=== PATIENT | male | born 1990 | race Caucasian/White ===

== ENCOUNTER 2019-01-28 16:05 | Observation (INO) | payer BC ==
--- OUTSIDE RECORDS SUMMARY | 2019-01-28 17:11 | XMS REPORT ---
:1990 [facility] Organization [facility] Address [address] [place] [address] Dr. Webber [address] [place] [id number] Care Team Providers Name Role Phone Unavailable Unavailable Unavailable Problems This patient has no known problems. Allergies, Adverse Reactions, Alerts This patient has no known allergies or adverse reactions. Medications This patient has no known medications.
--- OUTSIDE RECORDS SUMMARY | 2019-01-28 17:11 | XMS REPORT | Clinical Summary ---
:1990 Author Organization [facility] Address [address] [place] [address] Care Team Providers Name Role Phone Asked, No Pcp Primary Care Provider Unavailable Allergies No Known Allergies Medications Medication Sig Dispensed Refills Start Date End Date Status INSULIN LISPRO Inject under the 0 Active (INSULIN PUMP) 100 skin continuously. 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 Last Filed Vital Signs Not on file Plan of Treatment Health Maintenance Due Date Last Done Comments DIABETIC RETINAL EYE EXAM 1990 DIABETIC FOOT EXAM 01/14/1998 URINE MICROALBUMIN 01/14/1998 INFLUENZA VACCINE 03/17/2019 Results Not on fileafter 01/27/2018 Advance Directives Patient has advance care planning documents on file. For more information, please contact:Mir Chacko[address] [place] [address]
[2019-01-28] MEDS ORDERED: NA CHLORIDE 0.9% 2,000 ML ONE (17:17)
[2019-01-28 17:18] LABS: Absolute Lymphocytes (CBC) 2.6 K/uL (0.7-4.9); Basophils % 0.5 % (0-1.3); Eosinophils % 2.5 % (0-4.4); Hematocrit 42.1 % (39.6-49.0); Lymphocytes % 28.7 % (15.3-44.8); MPV 8.9 fL (7.6-11.3); Monocytes % 5.9 % (3.3-12.3); RBC Red Blood Cell Count 4.55 M/uL (4.33-5.43)
[2019-01-28 17:19] LABS: Protime INR 0.98
--- NOTE | 2019-01-28 17:23 | ER ---
Nurse's Notes [facility] Name: Nick Toure Age: 29 yrs Sex: Male : 1990 Arrival Date: 01/28/2019 Time: 16:07 Bed 18 Private MD: Diagnosis: Abscess of anal and rectal regions;Type 1 diabetes mellitus Presentation: 01/28 16:08 Presenting complaint: Patient states: "I have an abscess on my scrotum and saw Dr. lupillo Lucero today around 2:30pm". Transition of care: patient was not received from another setting of care. Onset of symptoms was 2018. Risk Assessment: Do you want to hurt yourself or someone else? Patient reports no desire to harm self or others. Initial Sepsis Screen: Does the patient meet any 2 criteria? No. Patient's initial sepsis screen is negative. Does the patient have a suspected source of infection? No. Patient's initial sepsis screen is negative. Care prior to arrival: None. 16:08 Acuity: GRAZYNA 3 aa5 16:08 Method Of Arrival: Ambulatory aa5 Historical: - Allergies: 16:08 No Known Allergies; aa5 - Home Meds: 18:52 lisinopril 5 mg Oral tab 1 tab once daily [Active]; Novolog 100 unit/mL Sub-Q soln em [Active]; - PMHx: 16:08 Diabetes - IDDM; aa5 - PSHx: 16:08 None; aa5 - Immunization history:: Adult Immunizations up to date. - Social history:: Smoking status: Patient/guardian denies using tobacco. - Ebola Screening: : Patient negative for fever greater than or equal to 101.5 degrees Fahrenheit, and additional compatible Ebola Virus Disease symptoms Patient denies exposure to infectious person Patient denies travel to an Ebola-affected area in the 21 days before illness onset No symptoms or risks identified at this time. Screenin:40 Abuse screen: Denies threats or abuse. Nutritional screening: No deficits noted. em Tuberculosis screening: No symptoms or risk factors identified. Fall Risk None identified. Assessment: 16:40 General: Appears in no apparent distress. comfortable, Behavior is calm, cooperative, em Denies fever. Pain: Complains of pain in perineum Pain currently is 5 out of 10 on a pain scale. Neuro: Level of Consciousness is awake, alert, obeys commands, Oriented to person, place, time, situation, Appropriate for age. Cardiovascular: Capillary refill < 3 seconds Patient's skin is warm and dry. Respiratory: Airway is patent Respiratory effort is even, unlabored, Respiratory pattern is regular, symmetrical. GI: Abdomen is flat, Patient currently denies nausea, vomiting. Derm: Skin is intact, is healthy with good turgor, Skin is pink, warm \\T\\ dry. Musculoskeletal: Capillary refill < 3 seconds, Range of motion: intact in all extremities. 17:00 Reassessment: I agree with the assessment made by Dagoberto JOEL. sg 17:44 Reassessment: Patient appears in no apparent distress at this time. Patient and/or em family updated on plan of care and expected duration. Pain level reassessed. Patient is alert, oriented x 3, equal unlabored respirations, skin warm/dry/pink. pending room assignment. 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 19:55 Reassessment: Patient appears in no apparent distress at this time. Patient and/or ed1 family updated on plan of care and expected duration. Pain level reassessed. Patient is alert, oriented x 3, equal unlabored respirations, skin warm/dry/pink. Vital Signs: 16:13 BP 131 / 72; Pulse 95; Resp 16 S; Temp 98.4(TE); Pulse Ox 100% on R/A; Weight 60.78 kg aa5 (R); Height 5 ft. 7 in. (170.18 cm) (R); Pain 5/10; 17:00 BP 135 / 81; Pulse 94; Resp 18; Pulse Ox 99% on R/A; em 17:40 BP 124 / 83; Pulse 85; Resp 17; Temp 99.0(O); Pulse Ox 100% on R/A; mh5 18:25 BP 136 / 83; Pulse 91; Resp 18; Pulse Ox 100% on R/A; Pain 0/10; em 19:55 BP 149 / 84; Pulse 87; Resp 17; Temp 97.9(O); Pulse Ox 100% on R/A; Pain 3/10; ed1 16:13 Body Mass Index 20.99 (60.78 kg, 170.18 cm) aa5 ED Course: 16:07 Patient arrived in ED. aa5 16:13 Triage completed. aa5 16:13 Arm band placed on. aa5 16:15 Nemo Gutiérrez FNP-C [facility]. snw 16:15 Al Mccoy MD is Attending Physician. snw 16:18 Dagoberto Perkins LVN is Primary Nurse. em 16:40 Patient has correct armband on for positive identification. Bed in low position. Call em light in reach. Adult w/ patient. Pulse ox on. NIBP on. 16:55 Inserted saline lock: 22 gauge in right antecubital area, using aseptic technique. ed1 Blood collected. 16:55 Initial lab(s) drawn, by me, sent to lab. First set of blood cultures drawn by me. em 17:02 Chest Single View XRAY In Process Unspecified. EDMS 17:[address] MD is Hospitalizing Provider. snw 17:26 EKG done, by motorsports technician. reviewed by Nemo MCKENZIE. sm3 19:10 Primary Nurse role handed off by Dagoberto Perkins LVN ed1 19:10 Heather Foley RN is Primary Nurse. ed1 19:55 No provider procedures requiring assistance completed. Patient admitted, IV remains in ed1 place. intact, No redness/swelling at site. Administered Medications: 17:09 Drug: NS 0.9% (30 ml/kg) 30 ml/kg Route: IV; Rate: bolus; Site: right antecubital; em 20:32 Follow up: IV Status: Infusion continued upon admission ed1 Outcome: 17:22 Decision to Hospitalize by Provider. snw 20:31 Admitted to Med/surg accompanied by tech, family with patient, via wheelchair, room ed1 218, with chart, Report called to JOHNY Addison 20:31 Condition: stable 20:31 Discharge instructions given to patient, family, Instructed on the need for admit, Demonstrated understanding of instructions. 20:31 Patient left the ED. ed1 Signatures: Dispatcher [employer] EDMS Kapil Cazares RN RN Nemo Gutiérrez FNP-C INTERNAL AFFAIRS COMMANDER-CsnDagoberto Grijalva LVN BUSINESS PROFESSOR em Jackelyn Alvarado RN RN [facility] Heather Foley RN RN ed1 Lucinda Lucero 5 Shawanda Dumont 3 Corrections: (The following items were deleted from the chart) 19:56 16:55 Inserted saline lock: 20 gauge in right antecubital area, using aseptic ed1 technique. Blood collected. em
--- NOTE | 2019-01-28 17:24 | EDPHYS ---
Physician Documentation [facility] Name: Nick Toure Age: 29 yrs Sex: Male : 1990 Arrival Date: 01/28/2019 Time: 16:07 Bed 18 Private MD: ED Physician Al Mccoy HPI: 01/28 16:58 This 29 yrs old Male presents to ER via Ambulatory with complaints of jong snw anal abscess. 16:58 The patient presents with an abscess of the jong anal. Description: localized, snw fluctuant. Onset: The symptoms/episode began/occurred 3 day(s) ago. Possible cause(s): insect sting. Associated signs and symptoms: The patient has no apparent associated signs or symptoms. Severity of symptoms: At their worst the symptoms were moderate. The patient has not experienced similar symptoms in the past. The patient has been recently seen by a physician: Dr. Lucero. Historical: - Allergies: 16:08 No Known Allergies; aa5 - Home Meds: 18:52 lisinopril 5 mg Oral tab 1 tab once daily [Active]; Novolog 100 unit/mL Sub-Q soln em [Active]; - PMHx: 16:08 Diabetes - IDDM; aa5 - PSHx: 16:08 None; aa5 - Immunization history:: Adult Immunizations up to date. - Social history:: Smoking status: Patient/guardian denies using tobacco. - Ebola Screening: : Patient negative for fever greater than or equal to 101.5 degrees Fahrenheit, and additional compatible Ebola Virus Disease symptoms Patient denies exposure to infectious person Patient denies travel to an Ebola-affected area in the 21 days before illness onset No symptoms or risks identified at this time. ROS: 16:45 Constitutional: Negative for fever, chills, and weight loss, Eyes: Negative for injury, snw pain, redness, and discharge, ENT: Negative for injury, pain, and discharge, Neck: Negative for injury, pain, and swelling, Cardiovascular: Negative for chest pain, palpitations, and edema, Respiratory: Negative for shortness of breath, cough, wheezing, and pleuritic chest pain, Abdomen/GI: Negative for abdominal pain, nausea, vomiting, diarrhea, and constipation, +jong anal abscess Back: Negative for injury and pain. Exam: 16:37 Constitutional: This is a well developed, well nourished patient who is awake, alert, snw and in no acute distress. Head/Face: Normocephalic, atraumatic. Eyes: Pupils equal round and reactive to light, extra-ocular motions intact. Lids and lashes normal. Conjunctiva and sclera are non-icteric and not injected. Cornea within normal limits. Periorbital areas with no swelling, redness, or edema. ENT: Nares patent. No nasal discharge, no septal abnormalities noted. Tympanic membranes are normal and external auditory canals are clear. Oropharynx with no redness, swelling, or masses, exudates, or evidence of obstruction, uvula midline. Mucous membranes moist. Neck: Trachea midline, no thyromegaly or masses palpated, and no cervical lymphadenopathy. Supple, full range of motion without nuchal rigidity, or vertebral point tenderness. No Meningismus. Chest/axilla: Normal chest wall appearance and motion. Nontender with no deformity. No lesions are appreciated. Cardiovascular: Regular rate and rhythm with a normal S1 and S2. No gallops, murmurs, or rubs. Normal PMI, no JVD. No pulse deficits. Respiratory: Lungs have equal breath sounds bilaterally, clear to auscultation and percussion. No rales, rhonchi or wheezes noted. No increased work of breathing, no retractions or nasal flaring. Abdomen/GI: Soft, non-tender, with normal bowel sounds. No distension or tympany. No guarding or rebound. No evidence of tenderness throughout. + jong-anal abscess with pointing, evaluated today per Dr. Lucero who sent pt for admission. Pt stopped and picked up his antibiotics and took them just prior to arrival. Back: No spinal tenderness. No costovertebral tenderness. Full range of motion. Skin: Warm, dry with normal turgor. Normal color with no rashes, no lesions, and no evidence of cellulitis. MS/ Extremity: Pulses equal, no cyanosis. Neurovascular intact. Full, normal range of motion. Neuro: Awake and alert, GCS 15, oriented to person, place, time, and situation. Cranial nerves II-XII grossly intact. Motor strength 5/5 in all extremities. Sensory grossly intact. Cerebellar exam normal. Normal gait. 17:22 ECG was reviewed by the Attending Physician. snw Vital Signs: 16:13 BP 131 / 72; Pulse 95; Resp 16 S; Temp 98.4(TE); Pulse Ox 100% on R/A; Weight 60.78 kg aa5 (R); Height 5 ft. 7 in. (170.18 cm) (R); Pain 5/10; 17:00 BP 135 / 81; Pulse 94; Resp 18; Pulse Ox 99% on R/A; em 17:40 BP 124 / 83; Pulse 85; Resp 17; Temp 99.0(O); Pulse Ox 100% on R/A; mh5 18:25 BP 136 / 83; Pulse 91; Resp 18; Pulse Ox 100% on R/A; Pain 0/10; em 19:55 BP 149 / 84; Pulse 87; Resp 17; Temp 97.9(O); Pulse Ox 100% on R/A; Pain 3/10; ed1 16:13 Body Mass Index 20.99 (60.78 kg, 170.18 cm) aa5 MDM: 16:21 Patient medically screened. snw 17:22 Data reviewed: vital signs, nurses notes. Data interpreted: Pulse oximetry: on room air snw is 100 %. Interpretation: normal. Counseling: I had a detailed discussion with the patient and/or guardian regarding: the historical points, exam findings, and any diagnostic results supporting the discharge/admit diagnosis, the need for further work-up and treatment in the hospital. Physician consultation: Angie Lane MD was called at 17:15, was contacted at 17:15, regarding admission, to the medical/surgical unit. Dr. Lucero spoke with Dr. Mccoy re: pt coming to ED for admit to Hospitalist. 01/28 16:21 Order name: T\T\S snw 01/28 16:21 Order name: Basic Metabolic Panel snw 01/28 16:21 Order name: Blood Culture Adult (2) snw 01/28 16:21 Order name: CBC with Diff snw 01/28 16:21 Order name: CPK; Complete Time: 17:35 snw 01/28 16:21 Order name: Lactate; Complete Time: 17:35 snw 01/28 16:21 Order name: LFT's; Complete Time: 17:35 snw 01/28 16:21 Order name: Lipase; Complete Time: 17:35 snw 01/28 16:21 Order name: Procalcitonin; Complete Time: 18:17 snw 01/28 16:21 Order name: Protime (+inr); Complete Time: 17:26 snw 01/28 16:24 Order name: Type and Screen; Complete Time: 18:17 EDMS 01/28 16:24 Order name: Basic Metabolic Panel; Complete Time: 17:35 EDMS 01/28 16:24 Order name: Blood Culture EDMS 01/28 16:24 Order name: CBC with Automated Diff; Complete Time: 17:22 EDMS 01/28 16:21 Order name: Chest Single View XRAY; Complete Time: 18:45 snw 01/28 16:21 Order name: Accucheck; Complete Time: 17:11 snw 01/28 16:21 Order name: Cardiac monitoring; Complete Time: 17:11 snw 01/28 16:21 Order name: EKG - Nurse/Tech; Complete Time: 17:11 snw 01/28 16:21 Order name: IV Saline Lock - Large Bore; Complete Time: 17:11 snw 01/28 16:21 Order name: Labs collected and sent; Complete Time: 17:12 snw 01/28 16:21 Order name: O2 Per Protocol; Complete Time: 17:12 snw 01/28 17:28 Order name: EKG Electrocardiogram; Complete Time: 17:29 EDMS 01/28 17:40 Order name: CT Pelvis w cont snw 01/28 17:42 Order name: CONS Pharmacy Consult EDAL 01/28 17:42 Order name: CONS Pharmacy Consult EDAL 01/28 17:42 Order name: CONS Physician Consult EDAL 01/28 17:42 Order name: Consistent Carb (ADA) [address] EDAL 01/28 17:43 Order name: Wound Culture EDAL 01/28 18:43 Order name: CT; Complete Time: 18:45 EDMS 01/28 16:21 Order name: O2 Sat Monitoring; Complete Time: 17:11 snw Administered Medications: 17:09 Drug: NS 0.9% (30 ml/kg) 30 ml/kg Route: IV; Rate: bolus; Site: right antecubital; em 20:32 Follow up: IV Status: Infusion continued upon admission ed1 Disposition: 01/28/19 17:22 Hospitalization ordered by Angie Lane for Inpatient Admission. Preliminary diagnosis are Abscess of anal and rectal regions, Type 1 diabetes mellitus. - Bed requested for Telemetry/MedSurg (Inpatient). - Status is Inpatient Admission. ed1 - Condition is Stable. - Problem is new. - Symptoms are unchanged. UTI on Admission? No Addendum: 01/31/2019 11:54 Co-signature as Attending Physician, Al Mccoy MD I agree with the assessment and k dr plan of care. Signatures: Dispatcher [employer] EDAL Al Mccoy MD MD [facility] Nemo Gutiérrez, FUR CUTTER-C FUR CUTTER-Csnw Dagoberto Perkins, SOUNDSCRIBER MECHANIC SOUNDSCRIBER MECHANIC em Lucinda Sheppard ms Jackelyn Alvarado, RN RN aa5 Heather Foley RN RN ed1 Corrections: (The following items were deleted from the chart) 01/28 18:10 17:22 Hospitalization Ordered by Angie Lane MD for Inpatient Admission. Preliminary ms diagnosis is Abscess of anal and rectal regions; Type 1 diabetes mellitus. Bed requested for Telemetry/MedSurg (Inpatient). Status is Inpatient Admission. Condition is Stable. Problem is new. Symptoms are unchanged. UTI on Admission? No. snw 20:31 18:10 01/28/2019 17:22 Hospitalization Ordered by Angie Lane MD for Inpatient ed1 Admission. Preliminary diagnosis is Abscess of anal and rectal regions; Type 1 diabetes mellitus. Bed requested for Telemetry/MedSurg (Inpatient). Status is Inpatient Admission. Condition is Stable. Problem is new. Symptoms are unchanged. UTI on Admission? No. ms
[2019-01-28 17:32] LABS: Albumin 3.9 g/dL (3.4-5.0); Bilirubin Direct 0.2 mg/dL (0-0.2); Bilirubin Total 0.6 mg/dL (0.2-1.0); Potassium 3.8 mmol/L (3.5-5.1); Protein, Total 7.2 g/dL (6.4-8.2)
[2019-01-28] MEDS ORDERED: ACETAMINOPHEN 500 MG TAB PO PRN (17:34)
[2019-01-28] MEDS ORDERED: ONDANSETRON 4 MG/2 ML VIAL IV PRN (17:34)
[2019-01-28] MEDS: VANCOMYCIN/NS 1 gm 1 GM/250 ML BAG IVPB SCH (18:00)
[2019-01-28] MEDS ORDERED: HYDROCODONE/APAP 7.5/325 MG TAB PO PRN (18:14)
--- NOTE | 2019-01-28 18:40 | RAD REPORT ---
EXAM DESCRIPTION: CT - Pelvis W/Cont - 01/28/2019 6:07 pm CLINICAL HISTORY: Perirenal abscess and pain COMPARISON: None. TECHNIQUE: Computed axial tomography of the pelvis was obtained. 50 cc Isovue-300 administered intra venously. Oral contrast not requested limiting evaluation of bowel All CT scans are performed using dose optimization technique as appropriate and may include automated exposure control or mA/KV adjustment according to patient size. FINDINGS: The visualized bowel caliber and wall thickness is normal Prostate gland is mildly enlarged. No ascites 6 millimeter low-density area adjacent to the right aspect of the anus. . Ischiorectal fat is clear. Small left and small to moderate right hydrocele IMPRESSION: 6 millimeter low-density area adjacent to the anus may represent a small abscess.
--- NOTE | 2019-01-28 18:42 | RAD REPORT ---
EXAM DESCRIPTION: Blue Single View01/28/2019 5:00 pm CLINICAL HISTORY: Preop for scrotal surgery COMPARISON: 2013 FINDINGS: The lungs appear clear of acute infiltrate. The heart is normal size IMPRESSION: No acute abnormalities displayed
[2019-01-28] MEDS ORDERED: CEFEPIME 2 GM in NA CHLORIDE 0.9% 100 ML IV SCH (21:00)
[2019-01-28] MEDS: CEFEPIME/SWI 2gm 2 GM/20 ML SYR IVP SCH (22:14)
[2019-01-28] MEDS: NA CHLORIDE 0.9% 1,000 ML IV SCH (22:15)
[2019-01-28 23:37] VITALS: BMI 20.9
[2019-01-29 02:52] LABS: Urine Appearance CLEAR; Urine Bilirubin NEGATIVE (NEG); Urine Blood NEGATIVE (NEG); Urine Color YELLOW; Urine Glucose 1+ (NEG); Urine Protein NEGATIVE (NEG); Urine Specific Gravity >=1.030 (1.005-1.030); Urine Urobilinogen 0.2 mg/dL (0.2-1.0); Urine pH 6.5 (5.0-7.0)
[2019-01-29 02:56] LABS: Urine Microscopic Reflex NO UMIC
[2019-01-29] MEDS: NA CHLORIDE 0.9% 1,000 ML IV SCH (04:05)
[2019-01-29 04:29] LABS: Absolute Lymphocytes (CBC) 3.1 K/uL (0.7-4.9); Basophils % 0.5 % (0-1.3); Eosinophils % 4.9 % (0-4.4); Lymphocytes % 38.2 % (15.3-44.8); MPV 8.9 fL (7.6-11.3); Monocytes % 7.8 % (3.3-12.3); RBC Red Blood Cell Count 4.21 M/uL (4.33-5.43)
--- NOTE | 2019-01-29 04:32 | HP ---
Date of Admission: 01/28/2019 Chief Complaint: Perirectal abscess. History Of Present Illness: The patient is a 29-year-old type 1 diabetic, with insulin pump, who was sent from Dr. Sevilla's office to Dr. Lucero's office because of a perirectal abscess. Dr. Cassidy reardon recommended further evaluation in the ER and possible incision and drainage. The patient has had t his abscess for the past week or so. States he has been working in a hot environment at his [employer] and has been very active. Therefore, with the increased sweating and the heat outside, t he patient has developed an abscess, as he is at risk due to being diabetic. The patient denies any fevers or chills. His symptoms are constant, moderate, progressively worsening. Denies any trauma t o the area. No alleviating factor. Pressure is worsening the pain. In the ER, his workup showed no rmal white cell count. He was not septic. Lactate was negative. Pelvis CT scan is pending. The lalitha mendieta was given Cipro and Flagyl at the surgeon's office. When seen in the ER, he was awake, alert, oriented x3, in some mild distress. Past Medical History: Type 1 diabetes mellitus, diabetic retinopathy, high blood pressure. Past Surgical History: None. Allergies: NO KNOWN DRUG ALLERGIES. Social History: The patient does report some occasional alcohol use. No tobacco use. Family History: Coronary artery disease and prostate cancer, run in the family. Review of Systems: Ten-point system reviewed, negative except as per HPI. Physical Examination: Vital Signs: Blood pressure 131/72, respirations 16, temperature is 98.4, heart rate 95, O2 100% on room air. General: Awake, alert, oriented x3, in some mild distress. HEENT: Normocephalic, atraumatic. PERRLA. EOMI. Moist mucous membranes. Oropharynx is clear. No rmal dentition. Conjunctivae anicteric. Neck: Supple. No JVD. Trachea midline. CV: S1 and S2. Regular rate and rhythm. Peripheral pulses present. Respiratory: Moving air well bilaterally. No wheezing or stridor. No use of accessory muscles. Gastrointestinal: Abdomen is soft, nontender, nondistended. Positive bowel sounds. No guarding or rigidity. Extremities: No clubbing, cyanosis, or edema. No calf tenderness. Neuro: Cranial nerves 2 pyurbar62 intact grossly. No focal neurological deficit. Speech is normal. Skin: The patient has multiple excoriations and ulcerations on his legs, noninfective. The patient does have perirectal abscess with closed comedone appearance. No fluctuance was appreciated. Minima l surrounding erythema. Psych: Mood is okay. Affect is full. Insight and judgment are good. Laboratory Data: Sodium 144, potassium 3.8, chloride 110, CO2 28, BUN 13, creatinine 1.01, glucose o f 118, lactate 1.6, calcium 8.8 procalcitonin less than 0.05. INR 0.98. WBC 9, H and H 14.8 and 42. 1, platelets 267, neutrophils 62% Imaging studies: Pending. Assessment: A 29-year-old male with: 1.Perirectal abscess, The patient has risk for MRSA and other infection due to uncontrolled diabetes mellitus type 1. We will start on broad spectrum IV antibiotics. We will obtain cultures. Dr. Gali cole with General Surgery has been consulted, he recommends incision and drainage. Pelvis CT scan is pending. 2.Diabetes mellitus type 1, not well controlled. We will check hemoglobin A1c. The patient current ly on an insulin pump, states his blood sugars were in the 200s. We will continue to monitor. December n eed to add long-acting insulin. 3.Diabetic retinopathy. 4.Essential hypertension. The patient takes lisinopril. Plan: 1.Admit the patient to Med/Surg. 2.Place on observation. 3.Anticipate surgery. 4.SCDs for DVT prophylaxis. 5.No chemical anticoagulation. /BENITO Voice ID: [id number]
[2019-01-29 04:34] LABS: BUN Blood Urea Nitrogen 15 mg/dL (7-18); Bicarbonate 29 mmol/L (21-32); Glucose Level 138 mg/dL (74-106); Potassium 3.9 mmol/L (3.5-5.1); Sodium Level 144 mmol/L (136-145)
[2019-01-29] MEDS: VANCOMYCIN/NS 1 gm 1 GM/250 ML BAG IVPB SCH (04:45)
[2019-01-29] MEDS: CEFEPIME/SWI 2gm 2 GM/20 ML SYR IVP SCH (07:55)
--- NOTE | 2019-01-29 08:08 | EKG ---
Test Date: 2019-01-28 Test Time: 17:22:00 Diet Technician Registered: DIMITRI MEASUREMENT RESULTS: Intervals: Rate: 94 IL: 164 QRSD: 86 QT: 328 QTc: 410 [place]: P: 69 IL: 164 QRS: 82 T: 28 INTERPRETIVE STATEMENTS: Normal sinus rhythm Normal ECG Compared to ECG 07/20/2006 09:57:30 Sinus tachycardia no longer present Electronically Signed On 01-29-19 08:07:52 CDT by Lisandro Morrell
[2019-01-29] MEDS: BUPIVACAINE 0.5% PF 10 ML VIAL ONE ×2 (09:20→09:56)
[2019-01-29] MEDS ORDERED: MIDAZOLAM HCL 2 MG/2 ML INJ ONE ×2 (09:54→10:15)
[2019-01-29] MEDS ORDERED: KETOROLAC 30 MG/ML INJ ONE (09:54)
[2019-01-29] MEDS ORDERED: PROPOFOL 200 MG/20 ML VIAL IV ONE (09:54)
[2019-01-29] MEDS ORDERED: FENTANYL CITR 100 MCG/2 ML ONE (09:54)
[2019-01-29] MEDS ORDERED: ONDANSETRON 4 MG/2 ML VIAL ONE (09:54)
[2019-01-29] MEDS ORDERED: LIDOCAINE 1% MPF 5 ML VIAL ONE (09:54)
[2019-01-29] MEDS ORDERED: D5 0.45 NS 1,000 ML IV SCH (10:00)
[2019-01-29] MEDS ORDERED: D50W 25 GM/50 ML SYRINGE IV ONE (10:10)
[2019-01-29 11:07] VITALS: TEMP 97.9; O2SAT 98
--- NOTE | 2019-01-29 13:53 | CON ---
Date of Consultation: 01/28/2019 History Of Present Illness: This is the case of a 29-year-old patient with history of diabetes, come to my office, he come from Dr. Sevilla's office with a perirectal abscess, needing immediate attentio n, he has to go home, came back, went to the ER and I was consulted. The patient was fully explained before the need for incision and drainage of perianal abscess. He sa ys it is getting worse in the last 2 days. He is trying to keep his sugar under control. He denies any trauma. He denies any constipation, any dysuria, hematuria, hematochezia, or melena. He says, b asically he is keeping his glucose under control. Past Medical History: Type 1 diabetes, diabetic retinopathy, high blood pressure. Past Surgical History: None. Allergies: NONE. Social History: He does not smoke. He drinks alcohol occasionally. Family History: Includes coronary artery disease. Review of Systems: Ten points otherwise unremarkable. Physical Examination: General: The patient is awake and alert. HEENT: Pupils are equal and reactive, anicteric. Neck: Supple. Chest: Clear. Abdomen: Soft and depressible. Extremities: Good capillary refill. Skin: The perianal and perineal area shows an abscess with cellulitis, tender, fluctuance present. No drainage at this time. This extend from the perianal into the perineal area. The scrotal seems n ot to be involved at this time with cellulitis. Rectal deferred. Laboratory Data: Blood work shows a WBC count of 9 with hemoglobin of 14.8. INR 0.9. Potassium 3.9 , glucose 138. Pelvic CT shows perianal abscess. Assessment: This is a 29-year-old patient with history of diabetes, come with 2 days history of swel ling, redness over the perineal and perianal area. Very tender to palpation. Fluctuance present con sistent with an abscess and cellulitis. Not only the abscess is important to drain in this patient, also cellulitis as this may escalate more complicated case. So I have advised him the importance of letting us to do the incision and drainage of the area. We are going to do EUA, anoscopy proctoscopy since we want to see if by any chance we can find the etiology of this one since it may be from just a simple infection to even fistulas or any other neoplasia. He understood the benefits, alternative s, and risks of that which include, but not limited to infection, bleeding, damage to adjacent struct ures, anesthetic complication, anal stricture, anal incontinence, NE, and even . He also unders tands this may not relieve the symptoms, he might need more than one surgical intervention. He under stands he will require packing and the importance of continuing his antibiotics. DANYA/BENITO Voice ID: [id number] Report ID: [id number]
[2019-01-29 14:04] VITALS: BP 147/84
--- NOTE | 2019-01-29 15:20 | DS ---
Date of Discharge: 01/29/2019 Knock Up Assembler: Dr. Lucero, General Surgery. Procedures: Incision and drainage of perirectal abscess. Discharge Diagnoses: 1.Perirectal abscess status post incision and drainage. 2.Diabetes mellitus type 1 on insulin pump. 3.Diabetic retinopathy. 4.Essential hypertension. Hospital Course: The patient is a 29-year-old male who was admitted to the hospital for perirectal a bscess. The patient was taken by Dr. Lucero for I and D. Did well postoperatively. The patient d id not appear to be septic, had normal white blood cell count. Lactate and procalcitonin were negati ve. The patient tolerated the procedure well. He was then cleared for discharge from surgical stand point. He will need continued wound care. He will need to follow up with Dr. Lucero and finish of f course of oral antibiotics. He will need to follow up with his culture results with Dr. Lucero. Condition: Stable. Activity: As tolerated. Medications: As per medication reconciliation list. Diet: Diabetic. Followup: Follow up with surgeon Dr. Lucero in 1 week for wound check. Return to ER for worsening condition. Follow up with ob gyn physician assistant at [facility] as scheduled. Physical Examination: General: Awake, alert, oriented x3. No acute distress. CV: S1, S2. No murmurs. Respiratory: Moving air well bilaterally. No wheezing or stridor. Gastrointestinal: Abdomen is soft, nontender, nondistended. Positive bowel sounds. Extremities: No clubbing, cyanosis, or edema. Neurologic: Nonfocal. Skin: Perirectal abscess status post I and D with bandage clean, dry, and intact. SA/MODL Voice ID: [id number] Report ID: [id number]
--- NOTE | 2019-01-29 16:27 | OP ---
Date of Procedure: 01/29/2019 Surgeon: Simone Lucero MD Preoperative Diagnoses: Perianal abscess, diabetes. Postoperative Diagnoses: Perianal abscess, diabetes. Procedures: Examination under anesthesia, anoscopy, rigid proctoscopy, incision and drainage of jong anal complex abscess. Abscess about 2.7 x 2 cm with loculations present. Indications: This is the case of a 29-year-old patient, who comes to us with a perianal abscess, sotero y tender area starting from the anus extending to perineum. Does not seem to be involving scrotum. He is diabetic. It happened fast in the last day and a half, so the patient was admitted to the hosp [facility]. Diabetes control called. I was called for incision and drainage of perianal abscess. The EUA , anoscopy, proctoscopy, incision and drainage of perianal abscess fully explained to the patient, wh ich include but are not limited to infection, bleeding, damage to adjacent structures, anesthesia com plication, anal stricture, anal incontinence, nonhealing wound, UT, and even . He also understa nds this may not relieve any symptoms. He might need more than one surgical intervention. He unders tands the importance of wound care and diabetes control. He signed a consent. Description Of Procedure: The patient was brought to the operating room, placed in supine position. Anesthesia was done without complication, placed in a right lateral position. After proper protecti on time-out was called. A rectal examination was done. Abscess was palpated. We then proceeded to do a rigid proctoscope all the way to about 12 cm, cannot past that area, as lot of stools present. I could not find at least any evidence of any mass or fistulas or any other thing obvious, although o nce again, because of the stool it was hard to see. I removed that and then placed an anoscope with a window on the side. Once again, on checking on his dentate line and a little bit more proximal, lo oking for any fistulas, we put a probe over the area of the opening of the abscess, but we could not get any entry site on the rectum or dentate line. So, at that moment, I removed the probe and then p roceed to do an I and D of the abscess. There were multiple loculations that extended in different a reas including the perineum. Does not seem to be going to the scrotum. The area was irrigated. A c ulture was obtained and then the area was packed with iodoform quarter of an inch. The patient alvaro ated the procedure well. The instruments were removed. The sponge count, instrument counts were cor rect. The patient was sent to recovery room in stable condition. He wants to go home, I was going t o let the primary doctor if it was okay with him to go home, with a condition that he packed the area daily with Nu Gauze one-quarter of an inch and take his medications and follow up in my office in 1 week. He may take a shower with dressings off. DANYA/BENITO Voice ID: [id number] Report ID: [id number]
[2019-01-29] MEDS ORDERED: SUBCUTANEOUS INSULIN PUMP MC SCH (20:30)
[2019-01-30] MEDS ORDERED: LISINOPRIL 5 MG TAB PO SCH (09:00)
== END 2019-01-29 11:41 | disposition home or self-care (01) ==
LOC: ER 16:05 → ERHOLD 17:35 → 2ND 20:18
PROVIDERS: ADMIT Family Medicine; ATTEND Family Medicine
PROC: 0D9P3ZX Drainage of Rectum, Percutaneous Approach, Diagnostic (ICD-10-PCS; principal; 2019-01-29 10:00)
DX: K61.1 Rectal abscess (principal); E10.319 Type 1 diabetes mellitus with unspecified diabetic retinopathy without macular edema; I10 Essential (primary) hypertension; Z96.41 Presence of insulin pump (external) (internal); Z79.899 Other long term (current) drug therapy
CPT/HCPCS: 36415; 71045; 72193; 80048; 80076; 81003; 82550; 82962; 83605; 83690; 84145; 85025; 85610; 86850; 86900; 86901; 87040; 87070; 87075; 87077; 87186; 87205; 88305; 88312; 93005; 94760; 96365; 96366; 99285; G0378; J0692; J2250; J2405; J2704; J3010; J3370; J7030; Q9967

== ENCOUNTER 2019-01-30 15:50 | Emergency (ER) | payer BC ==
--- OUTSIDE RECORDS SUMMARY | 2019-01-30 15:53 | XMS REPORT ---
:1990 Author Organization [facility] Address [address] [place] [address] Dr. Webber [address] [place] [id number] Care Team Providers Name Role Phone Unavailable Unavailable Unavailable Problems This patient has no known problems. Allergies, Adverse Reactions, Alerts This patient has no known allergies or adverse reactions. Medications This patient has no known medications.
--- OUTSIDE RECORDS SUMMARY | 2019-01-30 15:53 | XMS REPORT | Clinical Summary ---
:1990 Author Organization [facility] Address [address] [place] [address] Care Team Providers Name Role Phone Asked, [...] Transplant Felecia Cleaning MA Status Update after 01/29/2018 Social History Tobacco Use Types Packs/Day Years [...] INFLUENZA VACCINE 03/17/2019 Results Not on fileafter 01/29/2018 Advance Directives Patient has advance care planning documents on file. For more information, please contact:Mir Chacko[address] [place] [address]
--- NOTE | 2019-01-30 16:17 | EDPHYS ---
Physician Documentation [facility] Name: Nick Toure Age: 29 yrs Sex: Male : 1990 Arrival Date: 01/30/2019 Time: 15:55 Bed Treatment Private MD: ED Physician Sadi Neff HPI: 01/30 16:32 This 29 yrs old Male presents to ER via Ambulatory with complaints of Wound snw Check. 16:32 Patient presents to ED for recheck of: laceration. The affected area is on the snw jong-anal. Previous treatment: abscess I\T\D. Progress: The patient reports excellent improvement in the affected area. There has been resolution, improvement, or non-development of any drainage, fever, pain, redness or swelling. It is unknown whether or not the patient has had similar symptoms in the past. The patient has been recently seen by a physician: Dr. Lucero. Historical: - Allergies: 15:55 No Known Allergies; la1 - PMHx: 15:55 Diabetes - IDDM; la1 - Immunization history:: Adult Immunizations up to date. - Social history:: Smoking status: Patient/guardian denies using tobacco, Smoking status: Patient uses tobacco products, smokes one pack cigarettes per day. - Ebola Screening: : No symptoms or risks identified at this time. ROS: 16:32 Constitutional: Negative for fever, chills, and weight loss, Eyes: Negative for injury, snw pain, redness, and discharge, ENT: Negative for injury, pain, and discharge, Neck: Negative for injury, pain, and swelling, Cardiovascular: Negative for chest pain, palpitations, and edema, Respiratory: Negative for shortness of breath, cough, wheezing, and pleuritic chest pain, Back: Negative for injury and pain, : Negative for injury, bleeding, discharge, and swelling, MS/Extremity: Negative for injury and deformity, Skin: Negative for injury, rash, and discoloration, Neuro: Negative for headache, weakness, numbness, tingling, and seizure. 16:32 Abdomen/GI: Positive for rectal tenderness, wound needs eval. Exam: 16:30 Constitutional: This is a well developed, well nourished patient who is awake, alert, snw and in no acute distress. Head/Face: Normocephalic, atraumatic. Eyes: Pupils equal round and reactive to light, extra-ocular motions intact. Lids and lashes normal. Conjunctiva and sclera are non-icteric and not injected. Cornea within normal limits. Periorbital areas with no swelling, redness, or edema. ENT: Nares patent. No nasal discharge, no septal abnormalities noted. Tympanic membranes are normal and external auditory canals are clear. Oropharynx with no redness, swelling, or masses, exudates, or evidence of obstruction, uvula midline. Mucous membranes moist. Neck: Trachea midline, no thyromegaly or masses palpated, and no cervical lymphadenopathy. Supple, full range of motion without nuchal rigidity, or vertebral point tenderness. No Meningismus. Chest/axilla: Normal chest wall appearance and motion. Nontender with no deformity. No lesions are appreciated. Cardiovascular: Regular rate and rhythm with a normal S1 and S2. No gallops, murmurs, or rubs. Normal PMI, no JVD. No pulse deficits. Respiratory: Lungs have equal breath sounds bilaterally, clear to auscultation and percussion. No rales, rhonchi or wheezes noted. No increased work of breathing, no retractions or nasal flaring. Back: No spinal tenderness. No costovertebral tenderness. Full range of motion. Skin: Warm, dry with normal turgor. Normal color with no rashes, no lesions, and no evidence of cellulitis. MS/ Extremity: Pulses equal, no cyanosis. Neurovascular intact. Full, normal range of motion. Neuro: Awake and alert, GCS 15, oriented to person, place, time, and situation. Cranial nerves II-XII grossly intact. Motor strength 5/5 in all extremities. Sensory grossly intact. Cerebellar exam normal. Normal gait. 16:30 Abdomen/GI: Inspection: 10 O'clock incision s/p jong-anal abscess, no packing, + granulation tissue. No exudate. , Bowel sounds: normal, Rectal exam: tenderness, appearance as noted above. Vital Signs: 15:57 Resp 16; Temp 97.5; Pulse Ox 98% on R/A; Weight 60.78 kg; Height 5 ft. 7 in. (170.18 la1 cm); 15:58 BP 150 / 85; la1 15:57 Body Mass Index 20.99 (60.78 kg, 170.18 cm) la1 MDM: 16:17 Patient medically screened. snw 16:32 Data reviewed: vital signs, nurses notes. Data interpreted: Pulse oximetry: on room air snw is 98 %. Interpretation: normal. Counseling: I had a detailed discussion with the patient and/or guardian regarding: the historical points, exam findings, and any diagnostic results supporting the discharge/admit diagnosis, the need for outpatient follow up, to return to the emergency department if symptoms worsen or persist or if there are any questions or concerns that arise at home. Special discussion: Based on the history and exam findings, there is no indication for further emergent testing or inpatient evaluation. I discussed with the patient/guardian the need to see the general surgeon for further evaluation of the symptoms. Administered Medications: No medications were administered Disposition: 01/30/19 16:17 Discharged to Home. Impression: Open wound of anus - surgical incision, wound check. - Condition is Stable. - Discharge Instructions: Delayed Wound Closure, How to Take a Sitz Bath, Disposable Sitz Bath. - Medication Reconciliation Form, Thank You Letter, Antibiotic Education, Prescription Opioid Use form. - Follow up: Simone Lucero MD; When: as scheduled; Reason: Recheck today's complaints, Continuance of care, Re-evaluation by your physician. - Problem is an ongoing problem. - Symptoms have improved. Addendum: 02/01/2019 02:30 Co-signature as Attending Physician, Sdai Neff MD. g s Signatures: Nemo Gutiérrez, SEWAGE SCREEN OPERATOR-C SEWAGE SCREEN OPERATOR-Csnw Dom Knowles RN RN [facility] Sadi Neff MD MD Corrections: (The following items were deleted from the chart) 01/30 17:03 16:17 01/30/2019 16:17 Discharged to Home. Impression: Open wound of anus - surgical la1 incision, wound check. Condition is Stable. Forms are Medication Reconciliation Form, Thank You Letter, Antibiotic Education, Prescription Opioid Use. Follow up: Simone Lucero; When: as scheduled; Reason: Recheck today's complaints, Continuance of care, Re-evaluation by your physician. Problem is an ongoing problem. Symptoms have improved. snw
--- NOTE | 2019-01-30 16:17 | ER ---
Nurse's Notes [facility] Name: Nick Toure Age: 29 yrs Sex: Male : 1990 Arrival Date: 01/30/2019 Time: 15:55 Bed Treatment Private MD: Diagnosis: Open wound of anus-surgical incision, wound check Presentation: 01/30 15:55 Presenting complaint: Patient states: Rectal abscess sx done yesterday with jet villagomez last night took the packing out and than repacked it, it was there this morning at 0630 (the packing), but now I cant find the packing and I dont know what to do. Transition of care: patient was not received from another setting of care. Onset of symptoms was January 30, 2019. Risk Assessment: Do you want to hurt yourself or someone else? Patient reports no desire to harm self or others. Initial Sepsis Screen: Does the patient meet any 2 criteria? No. Patient's initial sepsis screen is negative. Does the patient have a suspected source of infection? No. Patient's initial sepsis screen is negative. Care prior to arrival: None. 15:55 Method Of Arrival: Ambulatory la1 15:55 Acuity: GRAZYNA 5 la1 Historical: - Allergies: 15:55 No Known Allergies; la1 - PMHx: 15:55 Diabetes - IDDM; la1 - Immunization history:: Adult Immunizations up to date. - Social history:: Smoking status: Patient/guardian denies using tobacco, Smoking status: Patient uses tobacco products, smokes one pack cigarettes per day. - Ebola Screening: : No symptoms or risks identified at this time. Screenin:02 Abuse screen: Denies threats or abuse. Nutritional screening: No deficits noted. la1 Tuberculosis screening: No symptoms or risk factors identified. Fall Risk None identified. Assessment: 17:02 Reassessment: Patient appears in no apparent distress at this time. General: Appears in la1 no apparent distress. Behavior is calm, cooperative. Derm: Wound noted perianal Wound is well approximated without redness swelling or drainage. Vital Signs: 15:57 Resp 16; Temp 97.5; Pulse Ox 98% on R/A; Weight 60.78 kg; Height 5 ft. 7 in. (170.18 la1 cm); 15:58 BP 150 / 85; la1 15:57 Body Mass Index 20.99 (60.78 kg, 170.18 cm) la1 ED Course: 15:55 Patient arrived in ED. as 15:55 Arm band placed on left wrist. la1 15:57 Triage completed. la1 16:04 Nemo Gutiérrez FNP-C [facility]. snw 16:06 Sadi Neff MD is Attending Physician. snw 16:15 Simone Villagomez MD is Referral Physician. snw 17:02 Dom Knowles, JOHNY is Primary Nurse. la1 17:02 Patient has correct armband on for positive identification. la1 17:02 No provider procedures requiring assistance completed. Patient did not have IV access la1 during this emergency room visit. Administered Medications: No medications were administered Outcome: 16:17 Discharge ordered by . snw 17:02 Discharged to home ambulatory. la1 17:02 Condition: stable 17:02 Discharge instructions given to patient, Instructed on discharge instructions, follow up and referral plans. Demonstrated understanding of instructions, follow-up care, wound care. 17:03 Patient left the ED. la1 Signatures: Nemo Gutiérrez FNP-C ELECTRIC MOTOR REPAIRING SUPERVISOR-Csnw Mary Villagomez as Dom Knowles, RN RN la1
[2019-01-30 17:22] VITALS: TEMP 97.5; O2SAT 98
[2019-01-30 17:23] VITALS: BP 150/85
== END 2019-01-30 17:03 | disposition home or self-care (01) ==
LOC: ER 15:50
DX: S31.831D Laceration without foreign body of anus, subsequent encounter (principal); F17.210 Nicotine dependence, cigarettes, uncomplicated
CPT/HCPCS: 99281

== ENCOUNTER 2021-07-28 19:38 | Inpatient (IN) | payer BC ==
--- OUTSIDE RECORDS SUMMARY | 2021-07-28 19:57 | XMS REPORT | Continuity of Care Document ---
:1990 Author Organization [facility] t Address [address] [place] [address] Care Team Providers Name Role Phone Augustina Dumont Primary Care Physician RICK Attending Clinician Unavailable Dg VUONG Attending Clinician Unavailable Jess Quinteros Attending Clinician Rupert PHD, L Attending Clinician Demetria EMERY Attending Clinician Unavailable Rick XIONG Attending Clinician Dg Vuong MD Attending Clinician 1, Audio Sound Suite Attending Clinician Unavailable Doctor Unassigned, Name Attending Clinician Unavailable SARAH Attending Clinician Unavailable Reynaldo Mckeon DO Attending Clinician Fran ANDREWS Attending Clinician Pcp-Lab Attending Clinician Unavailable RAUL Attending Clinician Unavailable Dyan MCALLISTER Attending Clinician Unavailable Dyan MCALLISTER Attending Clinician Unavailable Raul LANDISP Attending Clinician Fry MD Attending Clinician Nurse, Nando/Fiona Ventura Attending Clinician Unavailable Otto MUNOZ Attending Clinician Payers Payer Name Policy Type Policy Number Effective Date Expiration Date José Miguel [employer] [id number] 2019 ADVANTAGE HMO 00:00:00 Problems Condition Condition Condition Status Onset Resolution Last Treating Co mments Source Name Details Category Date Date Treatment Clinician Date Insulin Insulin Disease Active [facility] pump pump 12-20 ity of status status 00:00: [address] Branch Essential Essential Disease Active Uni vers hypertensi hypertensi 5-06 it y of on on 00:00: [place] 00 [facility] Pure Pure Disease Active [facility] hyperchole hyperchole 06 it y of sterolemia sterolemia 00:[place] 00 [facility] Branch Type 1 Type 1 Disease Active [facility] diabetes diabetes 1-17 ity of mellitus mellitus 00:00: [place] with with 00 Medical microalbum microalbum Br anch inuria inuria Allergies, Adverse Reactions, Alerts Allergy Allergy Status Severity Reaction(s) Onset Inactive Treating Comm ents Source Name Type Date Date Clinician NO KNOWN Drug Active Univers ALLERGIE Class ity of S [facility] Social History Social Habit Start Date Stop Date Quantity Comments Source Exposure to Not sure [facility] SARS-CoV-2 [facility] (event) [place] Tobacco use and 2021-04-17 2021-04-17 Never used Universit y of exposure 00:00:00 00:00:00 [facility] Alcohol intake 2021-04-17 2021-04-17 Current drinker Unive rsity of 00:00:00 00:00:00 of alcohol [facility] (finding) [place] Alcohol Comment 2017-08-05 2017-08-05 once a month Univers ity of 00:00:00 00:00:00 [facility] Sex [birth year] Universit y of 00:00:00 00:00:00 [facility] Smoking Status Start Date Stop Date Source Never smoker [facility] Medications Ordered Filled Start Stop Current Ordering Indication Dosage Frequency Signature Comments Components Source Medication Medication Date Date Medication? Clinician (SIG) Name Name lancets Yes [id number] Use as Univ ers (FREESTYLE 04-17 directed ity o f LANCETS) 28 00:00: to test [place] gauge Misc 00 times Medical daily. Branch lisinopriL Yes [id number] 20mg Take 2 U nivers 10 mg 04-17 tablets by ity of tablet 00:00: mouth [place] 00 daily. Medical Branch insulin Yes 539 Use in [facility] aspart 04-17 insulin ity of RAPID 00:00: pump est [place] (NOVOLOG 00 100 units Medica l U-100 per day. Branch INSULIN Indication ASPART) 100 s: unit/mL diabetes injection fluticasone Yes [id number] 2{spray Use 2 Univers propionate 04-17 } Sprays in ity of 50 00:00: each [place] mcg/actuati 00 nostril 2 Med ical on nasal (two) Branch spray times daily. lancets 0 Yes [id number] Use as Univ ers (FREESTYLE 04-17 directed ity o f LANCETS) 28 00:00: to test 3 [place] gauge Misc 00 times Medical daily. Branch lisinopriL Yes [id number] 20mg Take 2 U nivers 10 mg 9-01 tablets by ity of tablet 00:00: mouth [place] 00 daily. Medical Branch insulin Yes 539 Use in Univers aspart 9-01 insulin ity of RAPID 00:00: pump est [place] (NOVOLOG 00 100 units Medica l U-100 per day. Branch INSULIN Indication ASPART) 100 s: unit/mL diabetes injection fluticasone Yes [id number] 2{spray Use 2 [facility] propionate 04-17 } Sprays in ity of 50 00:00: each [place] mcg/actuati 00 nostril 2 Med ical on nasal (two) Branch spray times daily. lancets Yes [id number] Use as Univ ers (FREESTYLE 04-17 directed ity o f LANCETS) 28 00:00: to test 3 [place] gauge Misc 00 times Medical daily. Branch lisinopriL Yes [id number] 20mg Take 2 U nivers 10 mg 9-01 tablets by ity of tablet 00:00: mouth [place] 00 daily. Medical Branch insulin 0 Yes 539 Use in Univers aspart 9-01 insulin ity of RAPID 00:00: pump est [place] (NOVOLOG 00 100 units Medica l U-100 per day. Branch INSULIN Indication ASPART) 100 s: unit/mL diabetes injection lancets Yes [id number] Use as Univ ers (FREESTYLE 04-17 directed ity o f LANCETS) 28 00:00: to test 3 [place] gauge Misc 00 times Medical daily. Branch lisinopriL Yes [id number] 20mg Take 2 U nivers 10 mg 9-01 tablets by ity of tablet 00:00: mouth [place] 00 daily. Medical Branch insulin Yes 539 Use in Univers aspart 9-01 insulin ity of RAPID 00:00: pump est [place] (NOVOLOG 00 100 units Medica l U-100 per day. Branch INSULIN Indication ASPART) 100 s: unit/mL diabetes injection lancets 0 Yes [id number] Use as Univ ers (FREESTYLE 04-17 directed ity o f LANCETS) 28 00:00: to test 3 [place] gauge Misc 00 times Medical daily. Branch lisinopriL 0 Yes [id number] 20mg Take 2 U nivers 10 mg 9-01 tablets by ity of tablet 00:00: mouth [place] 00 daily. Medical Branch insulin 0 Yes 539 Use in Univers aspart 9- insulin ity of RAPID 00:00: pump est [place] (NOVOLOG 00 100 units Medica l U-100 per day. Branch INSULIN Indication ASPART) 100 s: unit/mL diabetes injection fluticasone 0 Yes [id number] 2{spray Use 2 Univers propionate 04-17 } Sprays in ity of 50 00:00: each [place] mcg/actuati 00 nostril 2 Med ical on nasal (two) Branch spray times daily. lancets Yes [id number] Use as Univ ers (FREESTYLE 04-17 directed ity o f LANCETS) 28 00:00: to test 3 [place] gauge Misc 00 times Medical daily. Branch lisinopriL 0 Yes [id number] 20mg Take 2 U nivers 10 mg 9-01 tablets by ity of tablet 00:00: mouth [place] 00 daily. Medical Branch insulin 0 Yes 539 Use in Univers aspart 9-01 insulin ity of RAPID 00:00: pump est [place] (NOVOLOG 00 100 units Medica l U-100 per day. Branch INSULIN Indication ASPART) 100 s: unit/mL diabetes injection fluticasone 0 Yes [id number] 2{spray Use 2 Univers propionate 04-17 } Sprays in ity of 50 00:00: each [place] mcg/actuati 00 nostril 2 Med ical on nasal (two) Branch spray times daily. lancets 0 Yes [id number] Use as Univ ers (FREESTYLE 04-17 directed ity o f LANCETS) 28 00:00: to test 3 [place] gauge Misc 00 times Medical daily. Branch lisinopriL Yes [id number] 20mg Take 2 U nivers 10 mg 9- tablets by ity of tablet 00:00: mouth [place] 00 daily. Medical Branch insulin Yes 539 Use in Univers aspart 04-17 insulin ity of RAPID 00:00: pump est [place] (NOVOLOG 00 100 units Medica l U-100 per day. Branch INSULIN Indication ASPART) 100 s: unit/mL diabetes injection fluticasone Yes [id number] 2{spray Use 2 Univers propionate 04-17 } Sprays in ity of 50 00:00: each [place] mcg/actuati 00 nostril 2 Med ical on nasal (two) Branch spray times daily. lancets Yes [id number] Use as Univ ers (FREESTYLE 04-17 directed ity o f LANCETS) 28 00:00: to test 3 [place] gauge Misc 00 times Medical daily. Branch lisinopriL Yes [id number] 20mg Take 2 U nivers 10 mg 9- tablets by ity of tablet 00:00: mouth 00 daily. Medical Branch insulin Yes 539 Use in Univers aspart 04-17 insulin ity of RAPID 00:00: pump est [place] (NOVOLOG 00 100 units Medica l U-100 per day. Branch INSULIN Indication ASPART) 100 s: unit/mL diabetes injection fluticasone Yes [id number] 2{spray Use 2 [facility] propionate 04-17 } Sprays in ity of 50 00:00: each [place] mcg/actuati 00 nostril 2 Med ical on nasal (two) Branch spray times daily. insulin Yes [id number] 1{box} inject 1 Univers syr/ndl 4-26 Box under ity of U100 half 00:00: [place] 3 [place] 0.5mL 00 (three) Medica l 30 gauge x times Branch 1564" Syrg daily. insulin Yes [id number] 1{box} inject 1 Univers syr/ndl 4-26 Box under ity of U100 half 00:00: [place] 3 [place] 0.5mL 00 (three) Medica l 30 gauge x times Branch 1564" Syrg daily. insulin Yes 539 Use in Univers aspart 4-26 insulin ity of RAPID 00:00: pump est [place] (NOVOLOG 00 100 units Medica l U-100 per day. Branch INSULIN Indication ASPART) 100 s: unit/mL diabetes injection insulin Yes [id number] 1{box} inject 1 Univers syr/ndl 4-26 Box under ity of U100 half 00:00: [place] 3 [place] 0.5mL 00 (three) Medica l 30 gauge x times Branch 1564" Syrg daily. insulin Yes 539 Use in Univers aspart 4-26 insulin ity of RAPID 00:00: pump est [place] (NOVOLOG 00 100 units Medica l U-100 per day. Branch INSULIN Indication ASPART) 100 s: unit/mL diabetes injection insulin Yes [id number] 1{box} inject 1 Univers syr/ndl 4-26 Box under ity of U100 half 00:00: [place] 0.5mL 00 (three) Medica l 30 gauge x times Branch 1564" Syrg daily. insulin Yes 539 Use in Univers aspart 4-26 insulin ity of RAPID 00:00: pump est [place] (NOVOLOG 00 100 units Medica l U-100 per day. Branch INSULIN Indication ASPART) 100 s: unit/mL diabetes injection insulin Yes [id number] 1{box} inject 1 Univers syr/ndl 4-26 Box under ity of U100 half 00:00: [place] 3 [place] ch[place] 0.5mL 00 (three) Medica l 30 gauge x times Branch 1564" Syrg daily. insulin Yes 539 Use in Univers aspart 4-26 insulin ity of RAPID 00:00: pump est [place] (NOVOLOG 00 100 units Medica l U-100 per day. Branch INSULIN Indication ASPART) 100 s: unit/mL diabetes injection insulin Yes [id number] 1{box} inject 1 Univers syr/ndl 4-26 Box under ity of U100 half 00:00: [place] 3 [place] 0.5mL 00 (three) Medica l 30 gauge x times Branch 1564" Syrg daily. insulin Yes 539 Use in Univers aspart 4-26 insulin ity of RAPID 00:00: pump est [place] (NOVOLOG 00 100 units Medica l U-100 per day. Branch INSULIN Indication ASPART) 100 s: unit/mL diabetes injection insulin Yes [id number] 1{box} inject 1 Univers syr/ndl 4-26 Box under ity of U100 half 00:00: [place] 0.5mL 00 (three) Medica l 30 gauge x times Branch 15/64" Syrg daily. insulin Yes 539 Use in Univers aspart 4-26 insulin ity of RAPID 00:00: pump est [place] (NOVOLOG 00 100 units Medica l U-100 per day. Branch INSULIN Indication ASPART) 100 s: unit/mL diabetes injection insulin Yes [id number] 1{box} inject 1 Univers syr/ndl 4-26 Box under ity of U100 half 00:00: [place] 3 [place] 0.5mL 00 (three) Medica l 30 gauge x times Branch 15/64" Syrg daily. insulin Yes 539 Use in Univers aspart 4-26 insulin ity of RAPID 00:00: pump [facility] (NOVOLOG 00 100 units Medica l U-100 per day. Branch INSULIN Indication ASPART) 100 s: unit/mL diabetes injection insulin Yes [id number] 1{box} inject 1 Univers syr/ndl 4-26 Box under ity of U100 half 00:00: [place] 3 [place] 0.5mL 00 (three) Medica l 30 gauge x times Branch 15/64" Syrg daily. insulin Yes 539 Use in Univers aspart 4-26 insulin ity of RAPID 00:00: pump est [place] (NOVOLOG 00 100 units Medica l U-100 per day. Branch INSULIN Indication ASPART) 100 s: unit/mL diabetes injection insulin 2020- Yes [id number] 1{box} inject 1 Univers syr/ndl 4-26 Box under ity of U100 half 00:00: [place] 3 [place] 0.5mL 00 (three) Medica l 30 gauge x times Branch 15/64" Syrg daily. insulin Yes 539 Use in Univers aspart 4-26 insulin ity of RAPID 00:00: pump est [place] (NOVOLOG 00 100 units Medica l U-100 per day. Branch INSULIN Indication ASPART) 100 s: unit/mL diabetes injection insulin Yes [id number] 1{box} inject 1 Univers syr/ndl 4-26 Box under ity of U100 half 00:00: [place] 3 [place] 0.5mL 00 (three) Medica l 30 gauge x times Branch 15/64" Syrg daily. insulin Yes 539 Use in Univers aspart 4-26 insulin ity of RAPID 00:00: pump [facility] (NOVOLOG 00 100 units Medica l U-100 per day. Branch INSULIN Indication ASPART) 100 s: unit/mL diabetes injection insulin Yes [id number] 1{box} inject 1 Univers syr/ndl 4-26 Box under ity of U100 half 00:00: [place] 3 [place] 0.5mL 00 (three) Medica l 30 gauge x times Branch 15/64" Syrg daily. insulin Yes 539 Use in Univers aspart 4-26 insulin ity of RAPID 00:00: pump [facility] (NOVOLOG 00 100 units Medica l U-100 per day. Branch INSULIN Indication ASPART) 100 s: unit/mL diabetes injection insulin Yes [id number] 1{box} inject 1 Univers syr/ndl 4-26 Box under ity of U100 half 00:00: [place] 0.5mL 00 (three) Medica l 30 gauge x times Branch 15/64" Syrg daily. insulin Yes 539 Use in Univers aspart 4-26 insulin ity of RAPID 00:00: pump [facility] (NOVOLOG 00 100 units Medica l U-100 per day. Branch INSULIN Indication ASPART) 100 s: unit/mL diabetes injection insulin 2020- Yes [id number] 1{box} inject 1 Univers syr/ndl 4-26 Box under ity of U100 half 00:00: [place] 3 [place] 0.5mL 00 (three) Medica l 30 gauge x times Branch 15/64" Syrg daily. insulin 2020-0 Yes [id number] 1{box} inject 1 Univers syr/ndl 4-26 Box under ity of U100 half 00:00: [place] 3 [place] 0.5mL 00 (three) Medica l 30 gauge x times Branch 15/64" Syrg daily. insulin Yes [id number] 1{box} inject 1 Univers syr/ndl 4-26 Box under ity of U100 half 00:00: the [place] 3 [place] 0.5mL 00 (three) Medica l 30 gauge x times Branch 15/64" Syrg daily. insulin Yes [id number] 1{box} inject 1 Univers syr/ndl 4-26 Box under ity of U100 half 00:00: the [place] 3 [place] 0.5mL 00 (three) Medica l 30 gauge x times Branch 15/64" Syrg daily. insulin Yes [id number] 1{box} inject 1 Univers syr/ndl 4-26 Box under ity of U100 half 00:00: the skin 3 [place] 0.5mL 00 (three) Medica l 30 gauge x times Branch 15/64" Syrg daily. insulin Yes [id number] 1{box} inject 1 Univers syr/ndl 4-26 Box under ity of U100 half 00:00: the skin 3 [place] 0.5mL 00 (three) Medica l 30 gauge x times Branch 15/64" Syrg daily. insulin Yes [id number] 1{box} inject 1 Univers syr/ndl 4-26 Box under ity of U100 half 00:00: the skin 3 [place] 0.5mL 00 (three) Medica l 30 gauge x times Branch 15/64" Syrg daily. insulin Yes [id number] 1{box} inject 1 Univers syr/ndl 4-26 Box under ity of U100 half 00:00: the skin 3 [place] 0.5mL 00 (three) Medica l 30 gauge x times Branch 15/64" Syrg daily. insulin 2020- No 539 Use in [facility] aspart 12-10 insulin ity of RAPID 00:00: 00:00 pump est [place] (NOVOLOG 00 :00 100 units Medica l U-100 per day. Branch INSULIN Indication ASPART) 100 s: unit/mL diabetes injection insulin 2020- No 539 Use in Univers aspart 12-10 insulin ity of RAPID 00:00: 00:00 pump est [place] (NOVOLOG 00 :00 100 units Medica l U-100 per day. Branch INSULIN Indication ASPART) 100 s: unit/mL diabetes injection insulin 2020- No 539 Use in Univers aspart 12-10 insulin ity of RAPID 00:00: 00:00 pump [facility] (NOVOLOG 00 :00 100 units Medica l U-100 per day. Branch INSULIN Indication ASPART) 100 s: unit/mL diabetes injection insulin 2019-08 Yes 539 Use in Univers aspart 1-25 insulin ity of RAPID 00:00: pump est [place] (NOVOLOG 00 100 units Medica l U-100 per day. Branch INSULIN Indication ASPART) 100 s: unit/mL diabetes injection insulin 2019-08 Yes 539 Use in Univers aspart 1-25 insulin ity of RAPID 00:00: pump [facility] (NOVOLOG 00 100 units Medica l U-100 per day. Branch INSULIN Indication ASPART) 100 s: unit/mL diabetes injection insulin 2019-08 Yes 539 Use in Univers aspart 1-25 insulin ity of RAPID 00:00: pump [facility] (NOVOLOG 00 100 units Medica l U-100 per day. Branch INSULIN Indication ASPART) 100 s: unit/mL diabetes injection insulin 2019-08 Yes 539 Use in Univers aspart 1-25 insulin ity of RAPID 00:00: pump [facility] (NOVOLOG 00 100 units Medica l U-100 per day. Branch INSULIN Indication ASPART) 100 s: unit/mL diabetes injection insulin 2019-08 Yes 539 Use in Univers aspart 1-25 insulin ity of RAPID 00:00: pump [facility] (NOVOLOG 00 100 units Medica l U-100 per day. Branch INSULIN Indication ASPART) 100 s: unit/mL diabetes injection insulin 2019-08 Yes 539 Use in Univers aspart 1-25 insulin ity of RAPID 00:00: pump est [place] (NOVOLOG 00 100 units Medica l U-100 per day. Branch INSULIN Indication ASPART) 100 s: unit/mL diabetes injection insulin 2019-08 Yes 539 Use in Univers aspart 1-25 insulin ity of RAPID 00:00: pump est [place] (NOVOLOG 00 100 units Medica l U-100 per day. Branch INSULIN Indication ASPART) 100 s: unit/mL diabetes injection insulin 2019-08 Yes 539 Use in Univers aspart 1-25 insulin ity of RAPID 00:00: pump [facility] (NOVOLOG 00 100 units Medica l U-100 per day. Branch INSULIN Indication ASPART) 100 s: unit/mL diabetes injection insulin 2019-08 Yes 539 Use in Univers aspart 1-25 insulin ity of RAPID 00:00: pump [facility] (NOVOLOG 00 100 units Medica l U-100 per day. Branch INSULIN Indication ASPART) 100 s: unit/mL diabetes injection insulin 2019-08 Yes 539 Use in Univers aspart 1-25 insulin ity of RAPID 00:00: pump [facility] (NOVOLOG 00 100 units Medica l U-100 per day. Branch INSULIN Indication ASPART) 100 s: unit/mL diabetes injection insulin 2019-08 Yes 539 Use in Univers aspart 1-25 insulin ity of RAPID 00:00: [facility] (NOVOLOG 00 100 units Medica l U-100 per day. Branch INSULIN Indication ASPART) 100 s: unit/mL diabetes injection insulin 2019-08 Yes 539 Use in Univers aspart 1-25 insulin ity of RAPID 00:00: [facility] (NOVOLOG 00 100 units Medica l U-100 per day. Branch INSULIN Indication ASPART) 100 s: unit/mL diabetes injection insulin 2019-08 Yes 539 Use in Univers aspart 1-25 insulin ity of RAPID 00:00: [facility] (NOVOLOG 00 100 units Medica l U-100 per day. Branch INSULIN Indication ASPART) 100 s: unit/mL diabetes injection insulin 2019-08 Yes 539 Use in Univers aspart 1-25 insulin ity of RAPID 00:00: [facility] (NOVOLOG 00 100 units Medica l U-100 per day. Branch INSULIN Indication ASPART) 100 s: unit/mL diabetes injection insulin 2019-08- No 539 Use in Univers aspart 1-25 04-26 insulin ity of RAPID 00:00: 00:00 pump [facility] (NOVOLOG 00 :00 100 units Medica l U-100 per day. Branch INSULIN Indication ASPART) 100 s: unit/mL diabetes injection lisinopriL Yes [id number] 20mg Take 2 U nivers 10 mg 9-23 tablets by ity of tablet 00:00: mouth [place] 00 daily. Medical Branch lisinopriL Yes [id number] 20mg Take 2 U nivers 10 mg 9-23 tablets by ity of tablet 00:00: mouth [place] 00 daily. Medical Branch lisinopriL 2020-0 Yes [id number] 20mg Take 2 U nivers 10 mg 9-23 tablets by ity of tablet 00:00: mouth [place] 00 daily. Medical Branch lisinopriL 2020-0 Yes [id number] 20mg Take 2 U nivers 10 mg 9-23 tablets by ity of tablet 00:00: mouth [place] 00 daily. Medical Branch lisinopriL 2020-0 Yes [id number] 20mg Take 2 U nivers 10 mg 9-23 tablets by ity of tablet 00:00: mouth [place] 00 daily. Medical Branch lisinopriL 2020-0 Yes [id number] 20mg Take 2 U nivers 10 mg 9-23 tablets by ity of tablet 00:00: mouth [place] 00 daily. Medical Branch lisinopriL 2020-0 Yes [id number] 20mg Take 2 U nivers 10 mg 9-23 tablets by ity of tablet 00:00: mouth [place] 00 daily. Medical Branch lisinopriL 2020-0 Yes [id number] 20mg Take 2 U nivers 10 mg 9-23 tablets by ity of tablet 00:00: mouth [place] 00 daily. Medical Branch lisinopriL 2020-0 Yes [id number] 20mg Take 2 U nivers 10 mg 9-23 tablets by ity of tablet 00:00: mouth [place] 00 daily. Medical Branch lisinopriL 2020-0 Yes [id number] 20mg Take 2 U nivers 10 mg 9-23 tablets by ity of tablet 00:00: mouth [place] 00 daily. Medical Branch lisinopriL 2020-0 Yes [id number] 20mg Take 2 U nivers 10 mg 9-23 tablets by ity of tablet 00:00: mouth [place] 00 daily. Medical Branch lisinopriL 2020-0 Yes [id number] 20mg Take 2 U nivers 10 mg 9-23 tablets by ity of tablet 00:00: mouth [place] 00 daily. Medical Branch lisinopriL 2020-0 Yes [id number] 20mg Take 2 U nivers 10 mg 9-23 tablets by ity of tablet 00:00: mouth [place] 00 daily. Medical Branch lisinopriL 2020-0 Yes [id number] 20mg Take 2 U nivers 10 mg 9-23 tablets by ity of tablet 00:00: mouth [place] 00 daily. Medical Branch lisinopriL 2020-0 Yes [id number] 20mg Take 2 U nivers 10 mg 9-23 tablets by ity of tablet 00:00: mouth [place] 00 daily. Medical Branch lisinopriL 2020-0 Yes [id number] 20mg Take 2 U nivers 10 mg 9-23 tablets by ity of tablet 00:00: mouth [place] 00 daily. Medical Branch lisinopriL 2020-0 Yes [id number] 20mg Take 2 U nivers 10 mg 9-23 tablets by ity of tablet 00:00: mouth [place] 00 daily. Medical Branch lisinopriL 2020-0 Yes [id number] 20mg Take 2 U nivers 10 mg 9-23 tablets by ity of tablet 00:00: mouth [place] 00 daily. Medical Branch lisinopriL 2020-0 Yes [id number] 20mg Take 2 U nivers 10 mg 9-23 tablets by ity of tablet 00:00: mouth [place] 00 daily. Medical Branch lisinopriL 2020-0 Yes [id number] 20mg Take 2 U nivers 10 mg 9-23 tablets by ity of tablet 00:00: mouth [place] 00 daily. Medical Branch lisinopriL 2020-0 Yes [id number] 20mg Take 2 U nivers 10 mg 9-23 tablets by ity of tablet 00:00: mouth [place] 00 daily. Medical Branch lisinopriL 2020-0 Yes [id number] 20mg Take 2 U nivers 10 mg 9-23 tablets by ity of tablet 00:00: mouth [place] 00 daily. Medical Branch lisinopriL 2020-0 Yes [id number] 20mg Take 2 U nivers 10 mg 9-23 tablets by ity of tablet 00:00: mouth [place] 00 daily. Medical Branch lisinopriL 2020-0 Yes [id number] 20mg Take 2 U nivers 10 mg 9-23 tablets by ity of tablet 00:00: mouth [place] 00 daily. Medical Branch lisinopriL 2020-0 Yes [id number] 20mg Take 2 U nivers 10 mg 9-23 tablets by ity of tablet 00:00: mouth [place] 00 daily. Medical Branch lisinopriL 2020-0 Yes [id number] 20mg Take 2 U nivers 10 mg 9-23 tablets by ity of tablet 00:00: mouth [place] 00 daily. Medical Branch lisinopriL 2020-0 Yes [id number] 20mg Take 2 U nivers 10 mg 9-23 tablets by ity of tablet 00:00: mouth [place] 00 daily. Medical Branch lisinopriL 2020-0 Yes [id number] 20mg Take 2 U nivers 10 mg 9-23 tablets by ity of tablet 00:00: mouth [place] 00 daily. Medical Branch lisinopriL 2020-0 Yes [id number] 20mg Take 2 U nivers 10 mg 9-23 tablets by ity of tablet 00:00: mouth [place] 00 daily. Medical Branch lisinopriL 2019-0 Yes [id number] 20mg Take 2 U nivers 10 mg 9-23 tablets by ity of tablet 00:00: mouth [place] 00 daily. Medical Branch lisinopriL 2019-0 Yes [id number] 20mg Take 2 U nivers 10 mg 9-23 tablets by ity of tablet 00:00: mouth [place] 00 daily. Medical Branch lisinopriL 2019-0 Yes [id number] 20mg Take 2 U nivers 10 mg 9-23 tablets by ity of tablet 00:00: mouth [place] 00 daily. [facility] Branch lisinopriL 2019-0 Yes [id number] 20mg Take 2 U nivers 10 mg 9-23 tablets by ity of tablet 00:00: mouth [place] 00 daily. [facility] Branch lisinopriL 2020-0 2020- No [id number] 20mg Take 2 Univers 10 mg 9-23 09-01 tablets by ity of tablet 00:00: 00:00 mouth [place] 00 :00 daily. [facility] Branch lisinopriL 2020-0 2020- No [id number] 20mg Take 2 Univers 10 mg 9-23 09-01 tablets by ity of tablet 00:00: 00:00 mouth [place] 00 :00 daily. [facility] Branch lisinopriL 2020-0 1- No [id number] 20mg Take 2 Univers 10 mg 9-23 09-01 tablets by ity of tablet 00:00: 00:00 mouth [place] 00 :00 daily. Medical Branch lisinopril 2020-0 Yes [id number] 10mg Take 1 U nivers 10 mg 5-06 tablet by ity of tablet 00:00: mouth [place] 00 daily. [facility] Branch pravastatin 2020-0 Yes [id number] 20mg Take 1 Univers 20 mg 5-06 tablet by ity of tablet 00:00: mouth at [place] 00 bedtime. [facility] Branch lisinopril 2020-0 Yes [id number] 10mg Take 1 U nivers 10 mg 5-06 tablet by ity of tablet 00:00: mouth [place] 00 daily. Medical Branch pravastatin 2020-0 Yes [id number] 20mg Take 1 [facility] 20 mg 5-06 tablet by [facility] of tablet 00:00: mouth at [place] 00 bedtime. [facility] lisinopril 2020-0 Yes [id number] 10mg Take 1 [facility] 10 mg 5-06 tablet by ity of tablet 00:00: mouth [place] 00 daily. [facility] pravastatin 2020-0 Yes [id number] 20mg Take 1 [facility] 20 mg 5-06 tablet by [facility] of tablet 00:00: mouth at [place] 00 bedtime. [facility] lisinopril 2020-0 Yes [id number] 10mg Take 1 [facility] 10 mg 5-06 tablet by ity of tablet 00:00: mouth [place] 00 daily. [facility] pravastatin 2020-0 Yes [id number] 20mg Take 1 [facility] 20 mg 5-06 tablet by [facility] of tablet 00:00: mouth at [place] 00 bedtime. [facility] lisinopril 2020-0 Yes [id number] 10mg Take 1 [facility] 10 mg 5-06 tablet by ity of tablet 00:00: mouth [place] 00 daily. [facility] pravastatin 2020-0 Yes [id number] 20mg Take 1 [facility] 20 mg 5-06 tablet by [facility] of tablet 00:00: mouth at [place] 00 bedtime. [facility] lisinopril 2020-0 Yes [id number] 10mg Take 1 [facility] 10 mg 5-06 tablet by ity of tablet 00:00: mouth [place] 00 daily. [facility] pravastatin 2020-0 Yes [id number] 20mg Take 1 [facility] 20 mg 5-06 tablet by [facility] of tablet 00:00: mouth at [place] 00 bedtime. [facility] lisinopril 2020-0 Yes [id number] 10mg Take 1 [facility] 10 mg 5-06 tablet by ity of tablet 00:00: mouth [place] 00 daily. [facility] pravastatin 2020-0 Yes [id number] 20mg Take 1 [facility] 20 mg 5-06 tablet by [facility] of tablet 00:00: mouth at [place] 00 bedtime. [facility] lisinopril 2020-0 Yes [id number] 10mg Take 1 [facility] 10 mg 5-06 tablet by ity of tablet 00:00: mouth [place] 00 daily. [facility] pravastatin 2020-0 Yes [id number] 20mg Take 1 [facility] 20 mg 5-06 tablet by ity of tablet 00:00: mouth at [place] [address] bedtime. [facility] lisinopril 2020-0 Yes [id number] 10mg Take 1 [facility] 10 mg 5-06 tablet by ity of tablet 00:00: mouth [place] 00 daily. [facility] pravastatin 2020-0 Yes [id number] 20mg Take 1 [facility] 20 mg 5-06 tablet by ity of tablet 00:00: mouth at [place] 00 bedtime. [facility] pravastatin 2020-0 Yes [id number] 20mg Take 1 [facility] 20 mg 5-06 tablet by ity of tablet 00:00: mouth at [place] 00 bedtime. [facility] pravastatin 2020-0 Yes [id number] 20mg Take 1 [facility] 20 mg 5-06 tablet by ity of tablet 00:00: mouth at [place] [address] bedtime. [facility] pravastatin 2020-0 Yes [id number] 20mg Take 1 [facility] 20 mg 5-06 tablet by ity of tablet 00:00: mouth at [place] [address] bedtime. [facility] pravastatin 2020-0 Yes [id number] 20mg Take 1 [facility] 20 mg 5-06 tablet by ity of tablet 00:00: mouth at [place] [address] bedtime. [facility] pravastatin 2020-0 Yes [id number] 20mg Take 1 [facility] 20 mg 5-06 tablet by ity of tablet 00:00: mouth at [place] [address] bedtime. [facility] pravastatin 2020-0 Yes [id number] 20mg Take 1 [facility] 20 mg 5-06 tablet by ity of tablet 00:00: mouth at [place] [address] bedtime. [facility] pravastatin 2020-0 Yes [id number] 20mg Take 1 [facility] 20 mg 5-06 tablet by ity of tablet 00:00: mouth at [place] [address] bedtime. [facility] pravastatin 2020-0 Yes [id number] 20mg Take 1 [facility] 20 mg 5-06 tablet by ity of tablet 00:00: mouth at [place] 00 bedtime. [facility] pravastatin 2020-0 Yes [id number] 20mg Take 1 [facility] 20 mg 5-06 tablet by ity of tablet 00:00: mouth at [place] [address] bedtime. [facility] Branch pravastatin 2020-0 Yes [id number] 20mg Take 1 [facility] 20 mg 5-06 tablet by ity of tablet 00:00: mouth at [place] [address] bedtime. [facility] pravastatin 2020-0 Yes [id number] 20mg Take 1 [facility] 20 mg 5-06 tablet by ity of tablet 00:00: mouth at [place] [address] bedtime. [facility] Branch pravastatin 2020-0 Yes [id number] 20mg Take 1 [facility] 20 mg 5-06 tablet by ity of tablet 00:00: mouth at [place] [address] bedtime. [facility] Branch pravastatin 2020-0 Yes [id number] 20mg Take 1 [facility] 20 mg 5-06 tablet by ity of tablet 00:00: mouth at [place] [address] bedtime. [facility] Branch pravastatin 2020-0 Yes [id number] 20mg Take 1 [facility] 20 mg 5-06 tablet by ity of tablet 00:00: mouth at [place] [address] bedtime. [facility] pravastatin 2020-0 Yes [id number] 20mg Take 1 [facility] 20 mg 5-06 tablet by ity of tablet 00:00: mouth at [place] [address] bedtime. [facility] Branch pravastatin 2020-0 Yes [id number] 20mg Take 1 [facility] 20 mg 5-06 tablet by ity of tablet 00:00: mouth at [place] [address] bedtime. [facility] pravastatin 2020-0 Yes [id number] 20mg Take 1 [facility] 20 mg 5-06 tablet by ity of tablet 00:00: mouth at [place] [address] bedtime. [facility] pravastatin 2020-0 Yes [id number] 20mg Take 1 [facility] 20 mg 5-06 tablet by ity of tablet 00:00: mouth at [place] [address] bedtime. [facility] Branch pravastatin 2020-0 Yes [id number] 20mg Take 1 [facility] 20 mg 5-06 tablet by ity of tablet 00:00: mouth at [place] [address] bedtime. [facility] Branch pravastatin 2020-0 Yes [id number] 20mg Take 1 [facility] 20 mg 5-06 tablet by ity of tablet 00:00: mouth at [place] [address] bedtime. [facility] Branch pravastatin 2020-0 Yes [id number] 20mg Take 1 [facility] 20 mg 5-06 tablet by ity of tablet 00:00: mouth at [place] [address] bedtime. [facility] Branch pravastatin 2020-0 2021- No [id number] 20mg Take 1 [facility] 20 mg 5-06 04-26 tablet by ity of tablet 00:00: 00:00 mouth at [place] 00 :00 bedtime. Medical Branch lisinopril 2020-0 2020- No [id number] 10mg Take 1 [facility] 10 mg 12-20 tablet by ity of tablet 00:00: 00:00 mouth [place] 00 :00 daily. [facility] Branch lisinopril 2019-0 2020- No [id number] 10mg Take 1 [facility] 10 mg 12-20 tablet by ity of tablet 00:00: 00:00 mouth [place] 00 :00 daily. [facility] lisinopril 2019-0 2020- No [id number] 10mg Take 1 [facility] 10 mg 12-20 tablet by ity of tablet 00:00: 00:00 mouth [place] 00 :00 daily. [facility] lisinopril 2019-0 2020- No [id number] 10mg Take 1 [facility] 10 mg 12-20 tablet by ity of tablet 00:00: 00:00 mouth [place] 00 :00 daily. [facility] Branch insulin 2020-0 Yes 539 Use in [facility] aspart 5-05 insulin ity of RAPID 00:00: pump est [place] (NOVOLOG 00 100 units Medica l U-100 per day. Branch INSULIN Indication ASPART) 100 s: unit/mL diabetes injection insulin 2020-0 Yes 539 Use in [facility] aspart 5-05 insulin ity of RAPID 00:00: pump est [place] (NOVOLOG 00 100 units Medica l U-100 per day. Branch INSULIN Indication ASPART) 100 s: unit/mL diabetes injection insulin 2020-0 Yes 539 Use in [facility] aspart 5-05 insulin ity of RAPID 00:00: pump est [place] (NOVOLOG 00 100 units Medica l U-100 per day. Branch INSULIN Indication ASPART) 100 s: unit/mL diabetes injection insulin 2020-0 Yes 539 Use in [facility] aspart 5-05 insulin ity of RAPID 00:00: pump est [place] (NOVOLOG 00 100 units Medica l U-100 per day. Branch INSULIN Indication ASPART) 100 s: unit/mL diabetes injection insulin 2020-0 Yes 539 Use in [facility] aspart 5-05 insulin ity of RAPID 00:00: pump est [place] (NOVOLOG 00 100 units Medica l U-100 per day. Branch INSULIN Indication ASPART) 100 s: unit/mL diabetes injection insulin 2020-0 Yes 539 Use in [facility] aspart 5-05 insulin ity of RAPID 00:00: pump est [place] (NOVOLOG 00 100 units Medica l U-100 per day. Branch INSULIN Indication ASPART) 100 s: unit/mL diabetes injection insulin 2020-0 Yes 539 Use in [facility] aspart 5-05 insulin ity of RAPID 00:00: pump est [place] (NOVOLOG 00 100 units Medica l U-100 per day. Branch INSULIN Indication ASPART) 100 s: unit/mL diabetes injection insulin 2020-0 Yes 539 Use in [facility] aspart 5-05 insulin ity of RAPID 00:00: pump est [place] (NOVOLOG 00 100 units Medica l U-100 per day. Branch INSULIN Indication ASPART) 100 s: unit/mL diabetes injection insulin 2020-0 Yes 539 Use in [facility] aspart 5-05 insulin ity of RAPID 00:00: pump est [place] (NOVOLOG 00 100 units Medica l U-100 per day. Branch INSULIN Indication ASPART) 100 s: unit/mL diabetes injection insulin 2020-0 Yes 539 Use in [facility] aspart 5-05 insulin ity of RAPID 00:00: pump est [place] (NOVOLOG 00 100 units Medica l U-100 per day. Branch INSULIN Indication ASPART) 100 s: unit/mL diabetes injection insulin 2020-0 Yes 539 Use in [facility] aspart 5-05 insulin ity of RAPID 00:00: pump est [place] (NOVOLOG 00 100 units Medica l U-100 per day. Branch INSULIN Indication ASPART) 100 s: unit/mL diabetes injection insulin 2020-0 Yes 539 Use in [facility] aspart 5-05 insulin ity of RAPID 00:00: pump est [place] (NOVOLOG 00 100 units Medica l U-100 per day. Branch INSULIN Indication ASPART) 100 s: unit/mL diabetes injection insulin 2020-0 Yes 539 Use in [facility] aspart 5-05 insulin ity of RAPID 00:00: pump est [place] (NOVOLOG 00 100 units Medica l U-100 per day. Branch INSULIN Indication ASPART) 100 s: unit/mL diabetes injection insulin 2020-0 Yes 539 Use in [facility] aspart 5-05 insulin ity of RAPID 00:00: pump est [place] (NOVOLOG 00 100 units Medica l U-100 per day. Branch INSULIN Indication ASPART) 100 s: unit/mL diabetes injection insulin 2020-0 Yes 539 Use in [facility] aspart 5-05 insulin ity of RAPID 00:00: pump est [place] (NOVOLOG 00 100 units Medica l U-100 per day. Branch INSULIN Indication ASPART) 100 s: unit/mL diabetes injection insulin 2020-0 Yes 539 Use in [facility] aspart 5-05 insulin ity of RAPID 00:00: pump est [place] (NOVOLOG 00 100 units Medica l U-100 per day. Branch INSULIN Indication ASPART) 100 s: unit/mL diabetes injection insulin 2019- Yes 539 Use in [facility] aspart 05 insulin ity of RAPID 00:00: pump est [place] (NOVOLOG 00 100 units Medica l U-100 per day. Branch INSULIN Indication ASPART) 100 s: unit/mL diabetes injection insulin 2020- No 539 Use in [facility] aspart 12-19 insulin ity of RAPID 00:00: 00:00 pump est [place] (NOVOLOG 00 :00 100 units Medica l U-100 per day. Branch INSULIN Indication ASPART) 100 s: unit/mL diabetes injection insulin 2020- No 539 Use in [facility] aspart 12-19 insulin ity of RAPID 00:00: 00:00 pump est [place] (NOVOLOG 00 :00 100 units Medica l U-100 per day. Branch INSULIN Indication ASPART) 100 s: unit/mL diabetes injection lisinopril 2020-0 Yes [id number] 10mg Take 1 U nivers 10 mg 4-28 tablet by ity of tablet 00:00: mouth [place] 00 daily. Medical Branch lisinopril 2020-0 Yes [id number] 10mg Take 1 U nivers 10 mg 4-28 tablet by ity of tablet 00:00: mouth [place] 00 daily. [facility] Branch lisinopril 2019-0 2020- No [id number] 10mg Take 1 [facility] 10 mg 4-28 05-06 tablet by ity of tablet 00:00: 00:00 mouth [place] 00 :00 daily. [facility] lisinopril 2020-0 2020- No [id number] 10mg Take 1 [facility] 10 mg 4-28 05-06 tablet by ity of tablet 00:00: 00:00 mouth [place] 00 :00 daily. Medical Branch blood sugar 2020-0 Yes Test Blood [facility] diagnostic 1-31 Sugar 3 ity of (ASCENSIA 00:00: times [place] MICROFILL) 00 daily Medical strip Branch blood sugar 2020-0 Yes Test Blood [facility] diagnostic 1-31 Sugar 3 ity of (ASCENSIA 00:00: times [place] MICROFILL) 00 daily Medical strip Branch blood sugar 2020-0 Yes Test Blood [facility] diagnostic 1-31 Sugar 3 ity of (ASCENSIA 00:00: times [place] MICROFILL) 00 daily Medical strip Branch blood sugar 2020-0 Yes Test Blood [facility] diagnostic 1-31 Sugar 3 ity of (ASCENSIA 00:00: times [place] MICROFILL) 00 daily Medical strip Branch blood sugar 2020-0 Yes Test Blood [facility] diagnostic 1-31 Sugar 3 ity of (ASCENSIA 00:00: times [place] MICROFILL) 00 daily Medical strip Branch blood sugar 2020-0 Yes Test Blood [facility] diagnostic 1-31 Sugar 3 ity of (ASCENSIA 00:00: times [place] MICROFILL) 00 daily Medical strip Branch blood sugar 2020-0 Yes Test Blood [facility] diagnostic 1-31 Sugar 3 ity of (ASCENSIA 00:00: times [place] MICROFILL) 00 daily Medical strip Branch blood sugar 2020-0 Yes Test Blood [facility] diagnostic 1-31 Sugar 3 ity of (ASCENSIA 00:00: times [place] MICROFILL) 00 daily Medical strip Branch blood sugar 2019-0 Yes Test Blood [facility] diagnostic 1-31 Sugar 3 ity of (ASCENSIA 00:00: times [place] MICROFILL) 00 daily Medical strip Branch blood sugar 2019-0 Yes Test Blood [facility] diagnostic 1-31 Sugar 3 ity of (ASCENSIA 00:00: times [place] MICROFILL) 00 daily Medical strip Branch blood sugar 2019-0 Yes Test Blood [facility] diagnostic 1-31 Sugar 3 ity of (ASCENSIA 00:00: times [place] MICROFILL) 00 daily Medical strip Branch blood sugar 2020-0 Yes Test Blood [facility] diagnostic 1-31 Sugar 3 ity of (ASCENSIA 00:00: times [place] MICROFILL) 00 daily Medical strip Branch blood sugar 2020-0 Yes Test Blood [facility] diagnostic 1-31 Sugar 3 ity of (ASCENSIA 00:00: times [place] MICROFILL) 00 daily Medical strip Branch blood sugar 2020-0 Yes Test Blood [facility] diagnostic 1-31 Sugar 3 ity of (ASCENSIA 00:00: times [place] MICROFILL) 00 daily Medical strip Branch blood sugar 2020-0 Yes Test Blood [facility] diagnostic 1-31 Sugar 3 ity of (ASCENSIA 00:00: times [place] MICROFILL) 00 daily Medical strip Branch blood sugar 2020-0 Yes Test Blood [facility] diagnostic 1-31 Sugar 3 ity of (ASCENSIA 00:00: times [place] MICROFILL) 00 daily Medical strip Branch blood sugar 2020-0 Yes Test Blood [facility] diagnostic 1-31 Sugar 3 ity of (ASCENSIA 00:00: times [place] MICROFILL) 00 daily Medical strip Branch blood sugar 2020-0 Yes Test Blood [facility] diagnostic 1-31 Sugar 3 ity of (ASCENSIA 00:00: times [place] MICROFILL) 00 daily Medical strip Branch blood sugar 2020-0 Yes Test Blood [facility] diagnostic 1-31 Sugar 3 ity of (ASCENSIA 00:00: times [place] MICROFILL) 00 daily Medical strip Branch blood sugar 2020-0 Yes Test Blood [facility] diagnostic 1-31 Sugar 3 ity of (ASCENSIA 00:00: times [place] MICROFILL) 00 daily Medical strip Branch blood sugar 2020-0 Yes Test Blood [facility] diagnostic 1-31 Sugar 3 ity of (ASCENSIA 00:00: times [place] MICROFILL) 00 daily Medical strip Branch blood sugar 2019-0 Yes Test Blood [facility] diagnostic 1-31 Sugar 3 ity of (ASCENSIA 00:00: times [place] MICROFILL) 00 daily Medical strip Branch blood sugar 2019-0 Yes Test Blood [facility] diagnostic 1-31 Sugar 3 ity of (ASCENSIA 00:00: times [place] MICROFILL) 00 daily Medical strip Branch blood sugar 2019-0 Yes Test Blood [facility] diagnostic 1-31 Sugar 3 ity of (ASCENSIA 00:00: times [place] MICROFILL) 00 daily Medical strip Branch blood sugar 2019-0 Yes Test Blood [facility] diagnostic 1-31 Sugar 3 ity of (ASCENSIA 00:00: times [place] MICROFILL) 00 daily Medical strip Branch blood sugar 2019-0 Yes Test Blood [facility] diagnostic 1-31 Sugar 3 ity of (ASCENSIA 00:00: times [place] MICROFILL) 00 daily Medical strip Branch blood sugar 2020-0 Yes Test Blood [facility] diagnostic 1-31 Sugar 3 ity of (ASCENSIA 00:00: times [place] MICROFILL) 00 daily Medical strip Branch blood sugar 2020-0 Yes Test Blood [facility] diagnostic 1-31 Sugar 3 ity of (ASCENSIA 00:00: times [place] MICROFILL) 00 daily Medical strip Branch blood sugar 2020-0 Yes Test Blood [facility] diagnostic 1-31 Sugar 3 ity of (ASCENSIA 00:00: times [place] MICROFILL) 00 daily Medical strip Branch blood sugar 2020-0 Yes Test Blood [facility] diagnostic 1-31 Sugar 3 ity of (ASCENSIA 00:00: times [place] MICROFILL) 00 daily Medical strip Branch blood sugar 2020-0 Yes Test Blood [facility] diagnostic 1-31 Sugar 3 ity of (ASCENSIA 00:00: times [place] MICROFILL) 00 daily Medical strip Branch blood sugar 2019-0 Yes Test Blood [facility] diagnostic 1-31 Sugar 3 ity of (ASCENSIA 00:00: times [place] MICROFILL) 00 daily Medical strip Branch blood sugar 2020-0 Yes Test Blood [facility] diagnostic 1-31 Sugar 3 ity of (ASCENSIA 00:00: times [place] MICROFILL) 00 daily Medical strip Branch blood sugar 2020-0 Yes Test Blood [facility] diagnostic 1-31 Sugar 3 ity of (ASCENSIA 00:00: times [place] MICROFILL) 00 daily Medical strip Branch blood sugar 2019-0 Yes Test Blood [facility] diagnostic 1-31 Sugar 3 ity of (ASCENSIA 00:00: times [place] MICROFILL) 00 daily Medical strip Branch blood sugar 2019-0 Yes Test Blood [facility] diagnostic -31 Sugar 3 ity of (ASCENSIA 00:00: times [place] MICROFILL) 00 daily Medical strip Branch blood sugar 2019-0 Yes Test Blood [facility] diagnostic 1-31 Sugar 3 ity of (ASCENSIA 00:00: times [place] MICROFILL) 00 daily Medical strip Branch blood sugar 2019-0 Yes Test Blood [facility] diagnostic 1-31 Sugar 3 ity of (ASCENSIA 00:00: times [place] MICROFILL) 00 daily Medical strip Branch blood sugar 2019-0 Yes Test Blood [facility] diagnostic 1-31 Sugar 3 ity of (ASCENSIA 00:00: times [place] MICROFILL) 00 daily Medical strip Branch blood sugar 2019-0 Yes Test Blood [facility] diagnostic -31 Sugar 3 ity of (ASCENSIA 00:00: times [place] MICROFILL) 00 daily Medical strip Branch blood sugar 2019-0 Yes Test Blood [facility] diagnostic 1-31 Sugar 3 ity of (ASCENSIA 00:00: times [place] MICROFILL) 00 daily Medical strip Branch blood sugar 2019-0 Yes Test Blood [facility] diagnostic 1-31 Sugar 3 ity of (ASCENSIA 00:00: times [place] MICROFILL) 00 daily Medical strip Branch blood sugar 2020-0 Yes Test Blood [facility] diagnostic 1-31 Sugar 3 ity of (ASCENSIA 00:00: times [place] MICROFILL) 00 daily Medical strip Branch blood sugar 2020-0 Yes Test Blood [facility] diagnostic 1-31 Sugar 3 ity of (ASCENSIA 00:00: times [place] MICROFILL) 00 daily Medical strip Branch blood sugar 2019-0 Yes Test Blood [facility] diagnostic 1-31 Sugar 3 ity of (ASCENSIA 00:00: times [place] MICROFILL) 00 daily Medical strip Branch blood sugar 2020-0 Yes Test Blood [facility] diagnostic 1-31 Sugar 3 ity of (ASCENSIA 00:00: times [place] MICROFILL) 00 daily Medical strip Branch blood sugar 2020-0 Yes Test Blood [facility] diagnostic 1-31 Sugar 3 ity of (ASCENSIA 00:00: times [place] MICROFILL) 00 daily Medical strip Branch blood sugar 2020-0 Yes Test Blood [facility] diagnostic 1-31 Sugar 3 ity of (ASCENSIA 00:00: times [place] MICROFILL) 00 daily Medical strip Branch blood sugar 2020-0 Yes Test Blood [facility] diagnostic 1-31 Sugar 3 ity of (ASCENSIA 00:00: times [place] MICROFILL) 00 daily Medical strip Branch blood sugar 2020-0 Yes Test Blood [facility] diagnostic 1-31 Sugar 3 ity of (ASCENSIA 00:00: times [place] MICROFILL) 00 daily Medical strip Branch blood sugar 2020-0 Yes Test Blood [facility] diagnostic 1-31 Sugar 3 ity of (ASCENSIA 00:00: times [place] MICROFILL) 00 daily Medical strip Branch blood sugar 2020-0 Yes Test Blood [facility] diagnostic 1-31 Sugar 3 ity of (ASCENSIA 00:00: times [place] MICROFILL) 00 daily Medical strip Branch blood sugar 2020-0 Yes Test Blood [facility] diagnostic 1-31 Sugar 3 ity of (ASCENSIA 00:00: times [place] MICROFILL) 00 daily Medical strip Branch blood sugar 2020-0 Yes Test Blood [facility] diagnostic 1-31 Sugar 3 ity of (ASCENSIA 00:00: times [place] MICROFILL) 00 daily Medical strip Branch GLUCAGON 2020-0 Yes Use as [facility] EMERGENCY 1-23 needed for ity of KIT, HUMAN, 00:00: hypoglycem [place] 1 mg 00 ia. Medical injection Branch KETONE 2020-0 Yes Use as [facility] URINE TEST 1-23 directed ity o f strip 00:00: [place] 00 Medical Branch GLUCAGON 2020-0 Yes Use as [facility] EMERGENCY 1-23 needed for ity of KIT, HUMAN, 00:00: hypoglycem [place] 1 mg 00 ia. Medical injection Branch KETONE 2020-0 Yes Use as [facility] URINE TEST 1-23 directed ity o f strip 00:00: [place] 00 Medical Branch FREESTYLE 2020-0 Yes Use as Univer s TEST strip -23 directed ity o f 00:00: to test [place] 00 blood Medical glucose 3 Branch times daily. FREESTYLE 2020-0 Yes Use as Univer s LANCETS 28 1-23 directed ity o f gauge Misc 00:00: to test 3 [place] 00 times Medical daily. Branch GLUCAGON 2020-0 Yes Use as [facility] EMERGENCY 1-23 needed for ity of KIT, HUMAN, 00:00: hypoglycem [place] 1 mg 00 ia. Medical injection Branch KETONE 2020-0 Yes Use as [facility] URINE TEST 1-23 directed ity o f strip 00:00: [place] 00 Medical Branch INSULIN 2020-0 Yes 1{box} inject 1 Univ ers SYR/NDL 1-23 Box under ity of U100 HALF 00:00: the skin 3 [place] CHAYO 0.5mL 00 (three) Medica l 30 gauge x times Branch 15/64" Syrg daily. FREESTYLE 2020-0 Yes Use as Univer s TEST strip - directed ity o f 00:00: to test 00 blood Medical glucose 3 Branch times daily. FREESTYLE 2020-0 Yes Use as Univer s LANCETS 28 - directed ity o f gauge Misc 00:00: to test 3 [place] 00 times Medical daily. Branch GLUCAGON 2020-0 Yes Use as [facility] EMERGENCY 1-23 needed for ity of KIT, HUMAN, 00:00: hypoglycem [place] 1 mg 00 ia. Medical injection Branch KETONE 2020-0 Yes Use as [facility] URINE TEST - directed ity o f strip 00:00: [place] 00 Medical Branch INSULIN 2020-0 Yes 1{box} inject 1 Univ ers SYR/NDL 1-23 Box under ity of U100 HALF 00:00: the skin 3 [place] CHAYO 0.5mL 00 (three) Medica l 30 gauge x times Branch 15/64" Syrg daily. FREESTYLE 2020-0 Yes Use as Univer s TEST strip 1-23 directed ity o f 00:00: to test [place] 00 blood Medical glucose 3 Branch times daily. FREESTYLE 2020-0 Yes Use as Univer s LANCETS 28 1-23 directed ity o f gauge Misc 00:00: to test 3 [place] 00 times Medical daily. Branch GLUCAGON 2020-0 Yes Use as [facility] EMERGENCY 1-23 needed for ity of KIT, HUMAN, 00:00: hypoglycem [place] 1 mg 00 ia. Medical injection Branch KETONE 2020-0 Yes Use as [facility] URINE TEST 1-23 directed ity o f strip 00:00: [place] 00 Medical Branch INSULIN 2020-0 Yes 1{box} inject 1 Univ ers SYR/NDL 1-23 Box under ity of U100 HALF 00:00: the skin 3 [place] CHAYO 0.5mL 00 (three) Medica l 30 gauge x times Branch 15/64" Syrg daily. FREESTYLE 2020-0 Yes Use as Univer s TEST strip 1-23 directed ity o f 00:00: to test [place] 00 blood Medical glucose 3 Branch times daily. FREESTYLE 2020-0 Yes Use as Univer s LANCETS 28 1-23 directed ity o f gauge Misc 00:00: to test 3 [place] 00 times Medical daily. Branch GLUCAGON 2020-0 Yes Use as [facility] EMERGENCY 1-23 needed for ity of KIT, HUMAN, 00:00: hypoglycem [place] 1 mg 00 ia. Medical injection Branch KETONE 2020-0 Yes Use as [facility] URINE TEST 1- directed ity o f strip 00:00: [place] 00 Medical Branch INSULIN 2020-0 Yes 1{box} inject 1 Univ ers SYR/NDL 1-23 Box under ity of U100 HALF 00:00: the skin 3 [place] CHAYO 0.5mL 00 (three) Medica l 30 gauge x times Branch 15/64" Syrg daily. FREESTYLE 2020-0 Yes Use as Univer s TEST strip 1- directed ity o f 00:00: to test [place] 00 blood Medical glucose 3 Branch times daily. FREESTYLE 2020-0 Yes Use as Univer s LANCETS 28 - directed ity o f gauge Misc 00:00: to test 3 [place] 00 times Medical daily. Branch GLUCAGON 2020-0 Yes Use as [facility] EMERGENCY 1-23 needed for ity of KIT, HUMAN, 00:00: hypoglycem [place] 1 mg 00 ia. Medical injection Branch KETONE 2020-0 Yes Use as [facility] URINE TEST 1-23 directed ity o f strip 00:00: [place] 00 Medical Branch INSULIN 2020-0 Yes 1{box} inject 1 Univ ers SYR/NDL 1-23 Box under ity of U100 HALF 00:00: the skin 3 [place] CHAYO 0.5mL 00 (three) Medica l 30 gauge x times Branch 15/64" Syrg daily. FREESTYLE 2020-0 Yes Use as Univer s LANCETS 28 1-23 directed ity o f gauge Misc 00:00: to test 3 [place] 00 times Medical daily. Branch GLUCAGON 2020-0 Yes Use as [facility] EMERGENCY 1-23 needed for ity of KIT, HUMAN, 00:00: hypoglycem [place] 1 mg 00 ia. Medical injection Branch KETONE 2020-0 Yes Use as [facility] URINE TEST 1-23 directed ity o f strip 00:00: [place] 00 Medical Branch INSULIN 2020-0 Yes 1{box} inject 1 Univ ers SYR/NDL 1-23 Box under ity of U100 HALF 00:00: the skin 3 [place] CHAYO 0.5mL 00 (three) Medica l 30 gauge x times Branch 15/64" Syrg daily. FREESTYLE 2020-0 Yes Use as Univer s LANCETS 28 1-23 directed ity o f gauge Misc 00:00: to test 3 [place] 00 times Medical daily. Branch GLUCAGON 2020-0 Yes Use as [facility] EMERGENCY 1-23 needed for ity of KIT, HUMAN, 00:00: hypoglycem [place] 1 mg 00 ia. Medical injection Branch KETONE 2020-0 Yes Use as [facility] URINE TEST 1-23 directed ity o f strip 00:00: [place] 00 Medical Branch INSULIN 2020-0 Yes 1{box} inject 1 Univ ers SYR/NDL 1-23 Box under ity of U100 HALF 00:00: the skin 3 [place] CHAYO 0.5mL 00 (three) Medica l 30 gauge x times Branch 15/64" Syrg daily. FREESTYLE 2020-0 Yes Use as Univer s LANCETS 28 1-23 directed ity o f gauge Misc 00:00: to test 3 [place] 00 times Medical daily. Branch GLUCAGON 2020-0 Yes Use as [facility] EMERGENCY 1-23 needed for ity of KIT, HUMAN, 00:00: hypoglycem [place] 1 mg 00 ia. Medical injection Branch KETONE 2020-0 Yes Use as [facility] URINE TEST 1-23 directed ity o f strip 00:00: [place] 00 Medical Branch INSULIN 2020-0 Yes 1{box} inject 1 Univ ers SYR/NDL 1-23 Box under ity of U100 HALF 00:00: the skin 3 [place] CHAYO 0.5mL 00 (three) Medica l 30 gauge x times Branch 15/64" Syrg daily. FREESTYLE 2020-0 Yes [facility] as [facility] LANCETS 28 1-23 directed ity o f gauge Misc 00:00: to test 3 [place] 00 times Medical daily. Branch GLUCAGON 2020-0 Yes [facility] as [facility] EMERGENCY 1-23 needed for ity of KIT, HUMAN, 00:00: hypoglycem [place] 1 mg 00 ia. Medical injection Branch KETONE 2020-0 Yes Use as [facility] URINE TEST 1-23 directed ity o f strip 00:00: [place] 00 [facility] INSULIN 2020-0 Yes 1{box} inject 1 [facility] SYR/NDL 1-23 Box under ity of U100 HALF 00:00: the skin 3 [place] CHAYO 0.5mL 00 (three) Medica l 30 gauge x times Branch 15/64" Syrg daily. FREESTYLE 2020-0 Yes Use as [facility] LANCETS 28 - directed ity o f gauge Misc 00:00: to test 3 [place] 00 times Medical daily. Branch GLUCAGON 2020-0 Yes Use as [facility] EMERGENCY 1-23 needed for ity of KIT, HUMAN, 00:00: hypoglycem [place] 1 mg 00 ia. Medical injection Branch KETONE 2020-0 Yes Use as [facility] URINE TEST 1-23 directed ity o f strip 00:00: [place] 00 [facility] INSULIN 2020-0 Yes 1{box} inject 1 [facility] SYR/NDL 1-23 Box under ity of U100 HALF 00:00: the skin [place] CHAYO 0.5mL 00 (three) Medica l 30 gauge x times Branch 15/64" Syrg daily. FREESTYLE 2020-0 Yes Use as [facility] LANCETS 28 1-23 directed ity o f gauge Misc 00:00: to test 3 [place] 00 times Medical daily. Branch GLUCAGON 2020-0 Yes Use as [facility] EMERGENCY 1-23 needed for ity of KIT, HUMAN, 00:00: hypoglycem [place] 1 mg 00 ia. Medical injection Branch KETONE 2020-0 Yes Use as [facility] URINE TEST 1-23 directed ity o f strip 00:00: [place] 00 [facility] INSULIN 2020-0 Yes 1{box} inject 1 [facility] SYR/NDL 1-23 Box under ity of U100 HALF 00:00: the skin 3 [place] CHAYO 0.5mL 00 (three) Medica l 30 gauge x times Branch 15/64" Syrg daily. FREESTYLE 2020-0 Yes Use as [facility] LANCETS 28 1-23 directed ity o f gauge Misc 00:00: to test 3 [place] 00 times Medical daily. Branch GLUCAGON 2020-0 Yes Use as [facility] EMERGENCY 1-23 needed for ity of KIT, HUMAN, 00:00: hypoglycem [place] 1 mg 00 ia. Medical injection Branch KETONE 2020-0 Yes Use as [facility] URINE TEST 1-23 directed ity o f strip 00:00: [place] 00 [facility] INSULIN 2020-0 Yes 1{box} inject 1 [facility] SYR/NDL 1-23 Box under ity of U100 HALF 00:00: the skin 3 [place] CHAYO 0.5mL 00 (three) Medica l 30 gauge x times Branch 15/64" Syrg daily. FREESTYLE 2020-0 Yes Use as [facility] LANCETS 28 1- directed ity o f gauge Misc 00:00: to test 3 [place] 00 times Medical daily. Branch GLUCAGON 2020-0 Yes Use as [facility] EMERGENCY 1-23 needed for ity of KIT, HUMAN, 00:00: hypoglycem [place] 1 mg 00 ia. Medical injection Branch KETONE 2020-0 Yes Use as [facility] URINE TEST 1-23 directed ity o f strip 00:00: [place] 00 [facility] INSULIN 2020-0 Yes 1{box} inject 1 [facility] SYR/NDL 1-23 Box under ity of U100 HALF 00:00: the skin 3 [place] CHAYO 0.5mL 00 (three) Medica l 30 gauge x times Branch 15/64" Syrg daily. FREESTYLE 2020-0 Yes Use as [facility] LANCETS 28 1-23 directed ity o f gauge Misc 00:00: to test 3 [place] 00 times Medical daily. Branch GLUCAGON 2020-0 Yes Use as [facility] EMERGENCY 1-23 needed for ity of KIT, HUMAN, 00:00: hypoglycem [place] 1 mg 00 ia. Medical injection Branch KETONE 2020-0 Yes Use as [facility] URINE TEST 1-23 directed ity o f strip 00:00: [place] 00 [facility] INSULIN 2020-0 Yes 1{box} inject 1 [facility] SYR/NDL 1-23 Box under ity of U100 HALF 00:00: the skin 3 [place] CHAYO 0.5mL 00 (three) Medica l 30 gauge x times Branch 15/64" Syrg daily. FREESTYLE 2020-0 Yes Use as [facility] LANCETS 28 1-23 directed ity o f gauge Misc 00:00: to test 3 [place] 00 times Medical daily. Branch GLUCAGON 2020-0 Yes Use as [facility] EMERGENCY 1-23 needed for ity of KIT, HUMAN, 00:00: hypoglycem [place] 1 mg 00 ia. Medical injection Branch KETONE 2020-0 Yes Use as [facility] URINE TEST 1-23 directed ity o f strip 00:00: [place] 00 [facility] INSULIN 2020-0 Yes 1{box} inject 1 [facility] SYR/NDL 1-23 Box under ity of U100 HALF 00:00: the skin 3 [place] CHAYO 0.5mL 00 (three) Medica l 30 gauge x times Branch 15/64" Syrg daily. FREESTYLE 2020-0 Yes Use as [facility] LANCETS 28 1-23 directed ity o f gauge Misc 00:00: to test 3 [place] 00 times Medical daily. Branch GLUCAGON 2020-0 Yes Use as [facility] EMERGENCY 1-23 needed for ity of KIT, HUMAN, 00:00: hypoglycem [place] 1 mg 00 ia. Medical injection Branch KETONE 2020-0 Yes Use as [facility] URINE TEST 1-23 directed ity o f strip 00:00: [place] 00 [facility] INSULIN 2020-0 Yes 1{box} inject 1 [facility] SYR/NDL 1-23 Box under ity of U100 HALF 00:00: the skin 3 [place] CHAYO 0.5mL 00 (three) Medica l 30 gauge x times Branch 15/64" Syrg daily. FREESTYLE 2020-0 Yes Use as [facility] LANCETS 28 1-23 directed ity o f gauge Misc 00:00: to test 3 [place] 00 times Medical daily. Branch GLUCAGON 2020-0 Yes Use as [facility] EMERGENCY 1-23 needed for ity of KIT, HUMAN, 00:00: hypoglycem [place] 1 mg 00 ia. Medical injection Branch KETONE 2020-0 Yes Use as [facility] URINE TEST 1-23 directed ity o f strip 00:00: [place] 00 [facility] INSULIN 2020-0 Yes 1{box} inject 1 [facility] SYR/NDL 1-23 Box under ity of U100 HALF 00:00: the skin 3 [place] CHAYO 0.5mL 00 (three) Medica l 30 gauge x times Branch 15/64" Syrg daily. FREESTYLE 2020-0 Yes Use as [facility] LANCETS 28 1-23 directed ity o f gauge Misc 00:00: to test 3 [place] 00 times Medical daily. Branch GLUCAGON 2020-0 Yes Use as [facility] EMERGENCY 1-23 needed for ity of KIT, HUMAN, 00:00: hypoglycem [place] 1 mg 00 ia. Medical injection Branch KETONE 2020-0 Yes Use as [facility] URINE TEST 1-23 directed ity o f strip 00:00: [place] 00 [facility] INSULIN 2020-0 Yes 1{box} inject 1 [facility] SYR/NDL 1-23 Box under ity of U100 HALF 00:00: the skin 3 [place] CHAYO 0.5mL 00 (three) Medica l 30 gauge x times Branch 15/64" Syrg daily. FREESTYLE 2020-0 Yes Use as [facility] LANCETS 28 1-23 directed ity o f gauge Misc 00:00: to test 3 [place] 00 times Medical daily. Branch GLUCAGON 2020-0 Yes Use as [facility] EMERGENCY 1-23 needed for ity of KIT, HUMAN, 00:00: hypoglycem [place] 1 mg 00 ia. Medical injection Branch KETONE 2020-0 Yes Use as [facility] URINE TEST 1-23 directed ity o f strip 00:00: [place] 00 [facility] INSULIN 2020-0 Yes 1{box} inject 1 [facility] SYR/NDL 1-23 Box under ity of U100 HALF 00:00: the skin 3 [place] CHAYO 0.5mL 00 (three) Medica l 30 gauge x times Branch 15/64" Syrg daily. FREESTYLE 2020-0 Yes Use as [facility] LANCETS 28 1-23 directed ity o f gauge Misc 00:00: to test 3 [place] 00 times Medical daily. Branch GLUCAGON 2020-0 Yes Use as [facility] EMERGENCY 1-23 needed for ity of KIT, HUMAN, 00:00: hypoglycem [place] 1 mg 00 ia. Medical injection Branch KETONE 2020-0 Yes Use as [facility] URINE TEST 1-23 directed ity o f strip 00:00: [place] 00 [facility] INSULIN 2020-0 Yes 1{box} inject 1 [facility] SYR/NDL 1-23 Box under ity of U100 HALF 00:00: the skin 3 [place] CHAYO 0.5mL 00 (three) Medica l 30 gauge x times Branch 15/64" Syrg daily. FREESTYLE 2020-0 Yes Use as [facility] LANCETS 28 1-23 directed ity o f gauge Misc 00:00: to test 3 [place] 00 times Medical daily. Branch GLUCAGON 2020-0 Yes Use as [facility] EMERGENCY 1-23 needed for ity of KIT, HUMAN, 00:00: hypoglycem [place] 1 mg 00 ia. Medical injection Branch KETONE 2020-0 Yes Use as [facility] URINE TEST 1-23 directed ity o f strip 00:00: [place] 00 [facility] INSULIN 2020-0 Yes 1{box} inject 1 [facility] SYR/NDL 1-23 Box under ity of U100 HALF 00:00: the skin 3 [place] CHAYO 0.5mL 00 (three) Medica l 30 gauge x times Branch 15/64" Syrg daily. FREESTYLE 2020-0 Yes Use as [facility] LANCETS 28 - directed ity o f gauge Misc 00:00: to test 3 [place] 00 times Medical daily. Branch GLUCAGON 2020-0 Yes Use as [facility] EMERGENCY 1-23 needed for ity of KIT, HUMAN, 00:00: hypoglycem [place] 1 mg 00 ia. Medical injection Branch KETONE 2020-0 Yes Use as [facility] URINE TEST 1-23 directed ity o f strip 00:00: [place] 00 [facility] INSULIN 2020-0 Yes 1{box} inject 1 [facility] SYR/NDL 1-23 Box under ity of U100 HALF 00:00: the skin 3 [place] CHAYO 0.5mL 00 (three) Medica l 30 gauge x times Branch 15/64" Syrg daily. FREESTYLE 2020-0 Yes Use as [facility] LANCETS 28 1-23 directed ity o f gauge Misc 00:00: to test 3 [place] 00 times Medical daily. Branch GLUCAGON 2020-0 Yes Use as [facility] EMERGENCY 1-23 needed for ity of KIT, HUMAN, 00:00: hypoglycem [place] 1 mg 00 ia. Medical injection Branch KETONE 2020-0 Yes Use as [facility] URINE TEST 1-23 directed ity o f strip 00:00: [place] 00 [facility] INSULIN 2020-0 Yes 1{box} inject 1 [facility] SYR/NDL 1-23 Box under ity of U100 HALF 00:00: the skin 3 [place] CHAYO 0.5mL 00 (three) Medica l 30 gauge x times Branch 15/64" Syrg daily. FREESTYLE 2020-0 Yes Use as [facility] LANCETS 28 1-23 directed ity o f gauge Misc 00:00: to test 3 [place] 00 times Medical daily. Branch GLUCAGON 2020-0 Yes Use as [facility] EMERGENCY 1-23 needed for ity of KIT, HUMAN, 00:00: hypoglycem [place] 1 mg 00 ia. Medical injection Branch KETONE 2020-0 Yes Use as [facility] URINE TEST 1-23 directed ity o f strip 00:00: [place] 00 [facility] INSULIN 2020-0 Yes 1{box} inject 1 [facility] SYR/NDL 1-23 Box under ity of U100 HALF 00:00: the skin 3 [place] CHAYO 0.5mL 00 (three) Medica l 30 gauge x times Branch 15/64" Syrg daily. FREESTYLE 2020-0 Yes Use as [facility] LANCETS 28 - directed ity o f gauge Misc 00:00: to test 3 [place] 00 times Medical daily. Branch GLUCAGON 2020-0 Yes Use as [facility] EMERGENCY 1-23 needed for ity of KIT, HUMAN, 00:00: hypoglycem [place] 1 mg 00 ia. Medical injection Branch KETONE 2020-0 Yes Use as [facility] URINE TEST 1-23 directed ity o f strip 00:00: [place] 00 [facility] INSULIN 2020-0 Yes 1{box} inject 1 [facility] SYR/NDL 1-23 Box under ity of U100 HALF 00:00: the skin 3 [place] CHAYO 0.5mL 00 (three) Medica l 30 gauge x times Branch 15/64" Syrg daily. FREESTYLE 2020-0 Yes Use as [facility] LANCETS 28 1-23 directed ity o f gauge Misc 00:00: to test 3 [place] 00 times Medical daily. Branch GLUCAGON 2020-0 Yes Use as [facility] EMERGENCY 1-23 needed for ity of KIT, HUMAN, 00:00: hypoglycem [place] 1 mg 00 ia. Medical injection Branch KETONE 2020-0 Yes Use as [facility] URINE TEST 1-23 directed ity o f strip 00:00: [place] 00 [facility] INSULIN 2020-0 Yes 1{box} inject 1 [facility] SYR/NDL 1-23 Box under ity of U100 HALF 00:00: the skin 3 [place] CHAYO 0.5mL 00 (three) Medica l 30 gauge x times Branch 15/64" Syrg daily. FREESTYLE 2020-0 Yes Use as [facility] LANCETS 28 1-23 directed ity o f gauge Misc 00:00: to test 3 [place] 00 times Medical daily. Branch GLUCAGON 2020-0 Yes Use as [facility] EMERGENCY 1-23 needed for ity of KIT, HUMAN, 00:00: hypoglycem [place] 1 mg 00 ia. Medical injection Branch KETONE 2020-0 Yes Use as [facility] URINE TEST 1-23 directed ity o f strip 00:00: [place] 00 [facility] INSULIN 2020-0 Yes 1{box} inject 1 [facility] SYR/NDL 1-23 Box under ity of U100 HALF 00:00: the skin 3 [place] CHAYO 0.5mL 00 (three) Medica l 30 gauge x times Branch 15/64" Syrg daily. FREESTYLE 2020-0 Yes Use as [facility] LANCETS 28 - directed ity o f gauge Misc 00:00: to test 3 [place] 00 times Medical daily. Branch GLUCAGON 2020-0 Yes Use as [facility] EMERGENCY 1-23 needed for ity of KIT, HUMAN, 00:00: hypoglycem [place] 1 mg 00 ia. Medical injection Branch KETONE 2020-0 Yes Use as [facility] URINE TEST 1-23 directed ity o f strip 00:00: [place] 00 [facility] INSULIN 2020-0 Yes 1{box} inject 1 [facility] SYR/NDL 1-23 Box under ity of U100 HALF 00:00: the skin 3 [place] CHAYO 0.5mL 00 (three) Medica l 30 gauge x times Branch 15/64" Syrg daily. FREESTYLE 2020-0 Yes Use as [facility] LANCETS 28 1-23 directed ity o f gauge Misc 00:00: to test 3 [place] 00 times Medical daily. Branch GLUCAGON 2020-0 Yes Use as [facility] EMERGENCY 1-23 needed for ity of KIT, HUMAN, 00:00: hypoglycem [place] 1 mg 00 ia. Medical injection Branch KETONE 2020-0 Yes Use as [facility] URINE TEST 1-23 directed ity o f strip 00:00: [place] 00 [facility] INSULIN 2020-0 Yes 1{box} inject 1 [facility] SYR/NDL 1-23 Box under ity of U100 HALF 00:00: the skin 3 [place] CHAYO 0.5mL 00 (three) Medica l 30 gauge x times Branch 15/64" Syrg daily. FREESTYLE 2020-0 Yes Use as [facility] LANCETS 28 1-23 directed ity o f gauge Misc 00:00: to test 3 [place] 00 times Medical daily. Branch GLUCAGON 2020-0 Yes Use as [facility] EMERGENCY 1-23 needed for ity of KIT, HUMAN, 00:00: hypoglycem [place] 1 mg 00 ia. Medical injection Branch KETONE 2020-0 Yes Use as [facility] URINE TEST 1-23 directed ity o f strip 00:00: [place] 00 [facility] INSULIN 2020-0 Yes 1{box} inject 1 [facility] SYR/NDL 1-23 Box under ity of U100 HALF 00:00: the skin 3 [place] CHAYO 0.5mL 00 (three) Medica l 30 gauge x times Branch 15/64" Syrg daily. FREESTYLE 2020-0 Yes Use as [facility] LANCETS 28 1-23 directed ity o f gauge Misc 00:00: to test 3 [place] 00 times Medical daily. Branch GLUCAGON 2020-0 Yes Use as [facility] EMERGENCY 1-23 needed for ity of KIT, HUMAN, 00:00: hypoglycem [place] 1 mg 00 ia. Medical injection Branch KETONE 2020-0 Yes Use as [facility] URINE TEST 1-23 directed ity o f strip 00:00: [place] 00 [facility] INSULIN 2020-0 Yes 1{box} inject 1 [facility] SYR/NDL 1-23 Box under ity of U100 HALF 00:00: the skin 3 [place] CHAYO 0.5mL 00 (three) Medica l 30 gauge x times Branch 15/64" Syrg daily. FREESTYLE 2020-0 Yes Use as [facility] LANCETS 28 1-23 directed ity o f gauge Misc 00:00: to test 3 [place] 00 times Medical daily. Branch GLUCAGON 2020-0 Yes Use as [facility] EMERGENCY 1-23 needed for ity of KIT, HUMAN, 00:00: hypoglycem [place] 1 mg 00 ia. Medical injection Branch KETONE 2020-0 Yes Use as [facility] URINE TEST 1-23 directed ity o f strip 00:00: [place] 00 [facility] Branch INSULIN 2020-0 Yes 1{box} inject 1 [facility] SYR/NDL 1-23 Box under ity of U100 HALF 00:00: the skin 3 [place] CHAYO 0.5mL 00 (three) Medica l 30 gauge x times Branch 15/64" Syrg daily. FREESTYLE 2020-0 Yes Use as [facility] LANCETS 28 1-23 directed ity o f gauge Misc 00:00: to test 3 [place] 00 times Medical daily. Branch GLUCAGON 2020-0 Yes Use as [facility] EMERGENCY 1-23 needed for ity of KIT, HUMAN, 00:00: hypoglycem [place] 1 mg 00 ia. Medical injection Branch KETONE 2020-0 Yes Use as [facility] URINE TEST 1-23 directed ity o f strip 00:00: [place] 00 [facility] INSULIN 2020-0 Yes 1{box} inject 1 [facility] SYR/NDL 1-23 Box under ity of U100 HALF 00:00: the skin 3 [place] CHAYO 0.5mL 00 (three) Medica l 30 gauge x times Branch 15/64" Syrg daily. FREESTYLE 2020-0 Yes Use as [facility] LANCETS 28 1-23 directed ity o f gauge Misc 00:00: to test 3 [place] 00 times Medical daily. Branch GLUCAGON 2020-0 Yes Use as [facility] EMERGENCY 1-23 needed for ity of KIT, HUMAN, 00:00: hypoglycem [place] 1 mg 00 ia. Medical injection Branch KETONE 2020-0 Yes Use as [facility] URINE TEST 1-23 directed ity o f strip 00:00: [place] 00 [facility] INSULIN 2020-0 Yes 1{box} inject 1 [facility] SYR/NDL 1-23 Box under ity of U100 HALF 00:00: the skin 3 [place] CHAYO 0.5mL 00 (three) Medica l 30 gauge x times Branch 15/64" Syrg daily. FREESTYLE 2020-0 Yes Use as [facility] LANCETS 28 1-23 directed ity o f gauge Misc 00:00: to test 3 [place] 00 times Medical daily. Branch GLUCAGON 2020-0 Yes Use as [facility] EMERGENCY 1-23 needed for ity of KIT, HUMAN, 00:00: hypoglycem [place] 1 mg 00 ia. Medical injection Branch KETONE 2020-0 Yes Use as [facility] URINE TEST 1-23 directed ity o f strip 00:00: [place] 00 [facility] INSULIN 2020-0 Yes 1{box} inject 1 [facility] SYR/NDL 1-23 Box under ity of U100 HALF 00:00: the skin 3 [place] CHAYO 0.5mL 00 (three) Medica l 30 gauge x times Branch 15/64" Syrg daily. FREESTYLE 2020-0 Yes Use as [facility] LANCETS 28 1-23 directed ity o f gauge Misc 00:00: to test 3 [place] 00 times Medical daily. Branch GLUCAGON 2020-0 Yes Use as [facility] EMERGENCY 1-23 needed for ity of KIT, HUMAN, 00:00: hypoglycem [place] 1 mg 00 ia. Medical injection Branch KETONE 2020-0 Yes Use as [facility] URINE TEST 1- directed ity o f strip 00:00: [place] 00 [facility] INSULIN 2020-0 Yes 1{box} inject 1 [facility] SYR/NDL 1-23 Box under ity of U100 HALF 00:00: the skin 3 [place] CHAYO 0.5mL 00 (three) Medica l 30 gauge x times Branch 15/64" Syrg daily. FREESTYLE 2020-0 Yes Use as [facility] LANCETS 28 - directed ity o f gauge Misc 00:00: to test 3 [place] 00 times Medical daily. Branch GLUCAGON 2020-0 Yes Use as [facility] EMERGENCY 1-23 needed for ity of KIT, HUMAN, 00:00: hypoglycem [place] 1 mg 00 ia. Medical injection Branch KETONE 2020-0 Yes Use as [facility] URINE TEST 1- directed ity o f strip 00:00: [place] 00 [facility] INSULIN 2020-0 Yes 1{box} inject 1 [facility] SYR/NDL 1-23 Box under ity of U100 HALF 00:00: the skin 3 [place] CHAYO 0.5mL 00 (three) Medica l 30 gauge x times Branch 15/64" Syrg daily. FREESTYLE 2020-0 Yes Use as [facility] LANCETS 28 1-23 directed ity o f gauge Misc 00:00: to test 3 [place] 00 times Medical daily. Branch GLUCAGON 2020-0 Yes Use as [facility] EMERGENCY 1-23 needed for ity of KIT, HUMAN, 00:00: hypoglycem [place] 1 mg 00 ia. Medical injection Branch KETONE 2020-0 Yes Use as [facility] URINE TEST 1-23 directed ity o f strip 00:00: [place] 00 [facility] INSULIN 2020-0 Yes 1{box} inject 1 [facility] SYR/NDL 1-23 Box under ity of U100 HALF 00:00: the skin 3 [place] CHAYO 0.5mL 00 (three) Medica l 30 gauge x times Branch 15/64" Syrg daily. FREESTYLE 2020-0 Yes Use as [facility] LANCETS 28 1- directed ity o f gauge Misc 00:00: to test 3 [place] 00 times Medical daily. Branch GLUCAGON 2020-0 Yes Use as [facility] EMERGENCY 1-23 needed for ity of KIT, HUMAN, 00:00: hypoglycem [place] 1 mg 00 ia. Medical injection Branch KETONE 2020-0 Yes Use as [facility] URINE TEST - directed ity o f strip 00:00: [place] 00 [facility] FREESTYLE 2020-0 Yes Use as [facility] LANCETS 28 - directed ity o f gauge Misc 00:00: to test 3 [place] 00 times Medical daily. Branch GLUCAGON 2020-0 Yes Use as [facility] EMERGENCY -23 needed for ity of KIT, HUMAN, 00:00: hypoglycem [place] 1 mg 00 ia. Medical injection Branch KETONE 2020-0 Yes Use as [facility] URINE TEST - directed ity o f strip 00:00: [place] 00 [facility] Branch FREESTYLE 2020-0 Yes Use as [facility] LANCETS 28 - directed ity o f gauge Misc 00:00: to test 3 [place] 00 times Medical daily. Branch GLUCAGON 2020-0 Yes Use as [facility] EMERGENCY 1-23 needed for ity of KIT, HUMAN, 00:00: hypoglycem [place] 1 mg 00 ia. Medical injection Branch KETONE 2020-0 Yes Use as [facility] URINE TEST -23 directed ity o f strip 00:00: [place] 00 [facility] Branch FREESTYLE 2020-0 Yes Use as [facility] LANCETS 28 1-23 directed ity o f gauge Misc 00:00: to test 3 [place] 00 times Medical daily. Branch GLUCAGON 2020-0 Yes Use as [facility] EMERGENCY -23 needed for ity of KIT, HUMAN, 00:00: hypoglycem [place] 1 mg 00 ia. Medical injection Branch KETONE 2020-0 Yes Use as [facility] URINE TEST 1-23 directed ity o f strip 00:00: [place] 00 [facility] FREESTYLE 2020-0 Yes Use as [facility] LANCETS 28 1-23 directed ity o f gauge Misc 00:00: to test 3 [place] 00 times Medical daily. Branch GLUCAGON 2020-0 Yes Use as [facility] EMERGENCY 1-23 needed for ity of KIT, HUMAN, 00:00: hypoglycem [place] 1 mg 00 ia. Medical injection Branch KETONE 2020-0 Yes Use as [facility] URINE TEST 1-23 directed ity o f strip 00:00: [place] 00 [facility] FREESTYLE 2020-0 Yes Use as [facility] LANCETS 28 1-23 directed ity o f gauge Misc 00:00: to test 3 [place] 00 times Medical daily. Branch GLUCAGON 2020-0 Yes Use as [facility] EMERGENCY 1-23 needed for ity of KIT, HUMAN, 00:00: hypoglycem [place] 1 mg 00 ia. Medical injection Branch KETONE 2020-0 Yes Use as [facility] URINE TEST 1-23 directed ity o f strip 00:00: [place] 00 [facility] FREESTYLE 2020-0 Yes Use as [facility] LANCETS 28 1- directed ity o f gauge Misc 00:00: to test 3 [place] 00 times Medical daily. Branch GLUCAGON 2020-0 Yes Use as [facility] EMERGENCY 1-23 needed for ity of KIT, HUMAN, 00:00: hypoglycem [place] 1 mg 00 ia. Medical injection Branch KETONE 2020-0 Yes Use as [facility] URINE TEST 1-23 directed ity o f strip 00:00: [place] 00 [facility] FREESTYLE 2020-0 Yes Use as [facility] LANCETS 28 1-23 directed ity o f gauge Misc 00:00: to test 3 [place] 00 times Medical daily. Branch GLUCAGON 2020-0 Yes Use as [facility] EMERGENCY 1-23 needed for ity of KIT, HUMAN, 00:00: hypoglycem [place] 1 mg 00 ia. Medical injection Branch KETONE 2020-0 Yes Use as [facility] URINE TEST 1-23 directed ity o f strip 00:00: [place] 00 [facility] FREESTYLE 2020-0 Yes Use as [facility] LANCETS 28 1-23 directed ity o f gauge Misc 00:00: to test 3 [place] 00 times Medical daily. Branch GLUCAGON 2020-0 Yes Use as [facility] EMERGENCY 1-23 needed for ity of KIT, HUMAN, 00:00: hypoglycem [place] 1 mg 00 ia. Medical injection Branch KETONE 2020-0 Yes Use as [facility] URINE TEST 1-23 directed ity o f strip 00:00: [place] 00 [facility] FREESTYLE 2020-0 Yes Use as [facility] LANCETS 28 1- directed ity o f gauge Misc 00:00: to test 3 [place] 00 times Medical daily. Branch GLUCAGON 2020-0 Yes Use as [facility] EMERGENCY 1-23 needed for ity of KIT, HUMAN, 00:00: hypoglycem [place] 1 mg 00 ia. Medical injection Branch KETONE 2020-0 Yes Use as [facility] URINE TEST 1-23 directed ity o f strip 00:00: [place] 00 [facility] FREESTYLE 2020-0 Yes Use as [facility] LANCETS 28 1- directed ity o f gauge Misc 00:00: to test 3 [place] 00 times Medical daily. Branch GLUCAGON 2020-0 Yes Use as [facility] EMERGENCY -23 needed for ity of KIT, HUMAN, 00:00: hypoglycem [place] 1 mg 00 ia. Medical injection Branch KETONE 2020-0 Yes Use as [facility] URINE TEST 1-23 directed ity o f strip 00:00: [place] 00 [facility] FREESTYLE 2020-0 Yes Use as [facility] LANCETS 28 1- directed ity o f gauge Misc 00:00: to test 3 [place] 00 times Medical daily. Branch GLUCAGON 2020-0 Yes Use as [facility] EMERGENCY -23 needed for ity of KIT, HUMAN, 00:00: hypoglycem [place] 1 mg 00 ia. Medical injection Branch KETONE 2020-0 Yes Use as [facility] URINE TEST 1-23 directed ity o f strip 00:00: [place] 00 [facility] GLUCAGON 2020-0 Yes Use as [facility] EMERGENCY 1-23 needed for ity of KIT, HUMAN, 00:00: hypoglycem [place] 1 mg 00 ia. Medical injection Branch KETONE 2020-0 Yes Use as [facility] URINE TEST 1-23 directed ity o f strip 00:00: [place] 00 [facility] GLUCAGON 2020-0 Yes Use as [facility] EMERGENCY 1-23 needed for ity of KIT, HUMAN, 00:00: hypoglycem [place] 1 mg 00 ia. Medical injection Branch KETONE 2020-0 Yes Use as [facility] URINE TEST 1-23 directed ity o f strip 00:00: [place] 00 [facility] GLUCAGON 2020-0 Yes Use as [facility] EMERGENCY 1-23 needed for ity of KIT, HUMAN, 00:00: hypoglycem [place] 1 mg 00 ia. Medical injection Branch KETONE 2020-0 Yes Use as [facility] URINE TEST 1-23 directed ity o f strip 00:00: [place] 00 [facility] GLUCAGON 2020-0 Yes Use as [facility] EMERGENCY 1-23 needed for ity of KIT, HUMAN, 00:00: hypoglycem [place] 1 mg 00 ia. Medical injection Branch KETONE 2020-0 Yes Use as [facility] URINE TEST 1-23 directed ity o f strip 00:00: [place] 00 [facility] GLUCAGON 2020-0 Yes Use as [facility] EMERGENCY 1-23 needed for ity of KIT, HUMAN, 00:00: hypoglycem [place] 1 mg 00 ia. Medical injection Branch KETONE 2020-0 Yes Use as [facility] URINE TEST 1-23 directed ity o f strip 00:00: [place] 00 [facility] Branch GLUCAGON 2020-0 Yes Use as [facility] EMERGENCY 1-23 needed for ity of KIT, HUMAN, 00:00: hypoglycem [place] 1 mg 00 ia. Medical injection Branch KETONE 2020-0 Yes Use as [facility] URINE TEST 1-23 directed ity o f strip 00:00: [place] 00 [facility] Branch GLUCAGON 2020-0 Yes Use as [facility] EMERGENCY 1-23 needed for ity of KIT, HUMAN, 00:00: hypoglycem [place] 1 mg 00 ia. Medical injection Branch KETONE 2020-0 Yes Use as [facility] URINE TEST 1-23 directed ity o f strip 00:00: [place] 00 [facility] Branch FREESTYLE 2020-0 2020- No Use as [facility] LANCETS 28 09-08 directed ity of gauge Misc 00:00: 00:00 to test 3 [place] 00 :00 times Medical daily. Branch FREESTYLE 2019-0 2020- No Use as [facility] LANCETS 09-08 directed ity of gauge Misc 00:00: 00:00 to test 3 [place] 00 :00 times Medical daily. Branch FREESTYLE 2019-0 2020- No Use as [facility] LANCETS 28 09-08 directed ity of gauge Misc 00:00: 00:00 to test 3 [place] 00 :00 times Medical daily. Branch INSULIN 2019-0 2020- No 1{box} inject 1 [facility] vers SYR/NDL 09-08 Box under ity of U100 HALF 00:00: 00:00 the skin 3 [place] CHAYO 0.5mL 00 :00 (three) Medica l 30 gauge x times Branch " Syrg daily. lisinopril 2018-08 Yes [id number] 10mg Take 1 U nivers 10 mg 2-18 tablet by ity of tablet 00:00: mouth [place] 00 daily. [facility] Branch lisinopril 2018-08 Yes [id number] 10mg Take 1 U nivers 10 mg 2-18 tablet by ity of tablet 00:00: mouth [place] 00 daily. [facility] lisinopril 2018-08 Yes [id number] 10mg Take 1 U nivers 10 mg 2-18 tablet by ity of tablet 00:00: mouth [place] 00 daily. [facility] lisinopril 2018-08 Yes [id number] 10mg Take 1 U nivers 10 mg 2-18 tablet by ity of tablet 00:00: mouth [place] 00 daily. [facility] lisinopril 2018-08 Yes [id number] 10mg Take 1 U nivers 10 mg 2-18 tablet by ity of tablet 00:00: mouth [place] 00 daily. [facility] lisinopril 2018-08 Yes [id number] 10mg Take 1 U nivers 10 mg 2-18 tablet by ity of tablet 00:00: mouth [place] 00 daily. [facility] lisinopril 2018-08 Yes [id number] 10mg Take 1 U nivers 10 mg 2-18 tablet by ity of tablet 00:00: mouth [place] 00 daily. [facility] lisinopril 2018-08 Yes [id number] 10mg Take 1 U nivers 10 mg 2-18 tablet by ity of tablet 00:00: mouth [place] 00 daily. [facility] lisinopril 2018-08 Yes [id number] 10mg Take 1 U nivers 10 mg 2-18 tablet by ity of tablet 00:00: mouth [place] 00 daily. [facility] lisinopril 2018-08 2020- No [id number] 10mg Take 1 Univers 10 mg 2-18 04-28 tablet by ity of tablet 00:00: 00:00 mouth [place] 00 :00 daily. [facility] insulin 2018-08 Yes 539 Use in Univers aspart 1-19 insulin ity of RAPID 00:00: pump est [place] (NOVOLOG 00 100 units Medica l U-100 per day. Branch INSULIN Indication ASPART) 100 s: unit/mL diabetes injection insulin 2018-08 Yes 539 Use in Univers aspart 1-19 insulin ity of RAPID 00:00: pump est [place] (NOVOLOG 00 100 units Medica l U-100 per day. Branch INSULIN Indication ASPART) 100 s: unit/mL diabetes injection insulin 2018-08 Yes 539 Use in Univers aspart 1-19 insulin ity of RAPID 00:00: pump est [place] (NOVOLOG 00 100 units Medica l U-100 per day. Branch INSULIN Indication ASPART) 100 s: unit/mL diabetes injection insulin 2018-08 Yes 539 Use in Univers aspart 1-19 insulin ity of RAPID 00:00: pump est [place] (NOVOLOG 00 100 units Medica l U-100 per day. Branch INSULIN Indication ASPART) 100 s: unit/mL diabetes injection insulin 2018-08 Yes 539 Use in Univers aspart 1-19 insulin ity of RAPID 00:00: pump est [place] (NOVOLOG 00 100 units Medica l U-100 per day. Branch INSULIN Indication ASPART) 100 s: unit/mL diabetes injection insulin 2018-08 Yes 539 Use in Univers aspart 1-19 insulin ity of RAPID 00:00: pump est [place] (NOVOLOG 00 100 units Medica l U-100 per day. Branch INSULIN Indication ASPART) 100 s: unit/mL diabetes injection insulin 2018-08 Yes 539 Use in Univers aspart 1-19 insulin ity of RAPID 00:00: pump est [place] (NOVOLOG 00 100 units Medica l U-100 per day. Branch INSULIN Indication ASPART) 100 s: unit/mL diabetes injection insulin 2018-08 Yes 539 Use in Univers aspart 1-19 insulin ity of RAPID 00:00: pump est [place] (NOVOLOG 00 100 units Medica l U-100 per day. Branch INSULIN Indication ASPART) 100 s: unit/mL diabetes injection insulin 2018-08 Yes 539 Use in Univers aspart 1-19 insulin ity of RAPID 00:00: pump est [place] (NOVOLOG 00 100 units Medica l U-100 per day. Branch INSULIN Indication ASPART) 100 s: unit/mL diabetes injection insulin 2018-08 Yes 539 Use in Univers aspart 1-19 insulin ity of RAPID 00:00: pump est [place] (NOVOLOG 00 100 units Medica l U-100 per day. Branch INSULIN Indication ASPART) 100 s: unit/mL diabetes injection insulin 2018-08 2020- No 539 Use in Univers aspart 1-19 05-05 insulin ity of RAPID 00:00: 00:00 pump est [place] (NOVOLOG 00 :00 100 units Medica l U-100 per day. Branch INSULIN Indication ASPART) 100 s: unit/mL diabetes injection lisinopril Yes [id number] 5mg Take 1 U nivers 5 mg tablet 8-28 tablet by ity of 00:00: mouth [place] 00 daily. Medical Branch insulin 2019 Yes 539 Use in Univers aspart 8-28 insulin ity of RAPID 00:00: pump est [place] (NOVOLOG 00 100 units Medica l U-100 per day. Branch INSULIN Indication ASPART) 100 s: unit/mL diabetes injection flash Yes 539 1{each} 1 Each Univers glucose 5-29 every 10 ity of sensor 00:00: () [place] (FREESTYLE 00 days. Dx: Medi mariana VENITA 10 11.8 Branch DAY SENSOR) Kit flash Yes 539 1{each} 1 Each Univers glucose 5-29 every 10 ity of sensor 00:00: () [place] (FREESTYLE 00 days. Dx: Medi mariana VENITA 10 11.8 Branch DAY SENSOR) Kit flash Yes 539 1{each} 1 Each Univers glucose 5-29 every 10 ity of sensor 00:00: () [place] (FREESTYLE 00 days. Dx: Medi mariana VENITA 10 11.8 Branch DAY SENSOR) Kit flash Yes 539 1{each} 1 Each Univers glucose 5-29 every 10 ity of sensor 00:00: () [place] (FREESTYLE 00 days. Dx: Medi mariana VENITA 10 11.8 Branch DAY SENSOR) Kit flash Yes 539 1{each} 1 Each Univers glucose 5-29 every 10 ity of sensor 00:00: () [place] (FREESTYLE 00 days. Dx: Medi mariana VENITA 10 11.8 Branch DAY SENSOR) Kit flash Yes 539 1{each} 1 Each Univers glucose 5-29 every 10 ity of sensor 00:00: () [place] (FREESTYLE 00 days. Dx: Medi mariana VENITA 10 11.8 Branch DAY SENSOR) Kit flash Yes 539 1{each} 1 Each Univers glucose 5-29 every 10 ity of sensor 00:00: ([facility]) [place] (FREESTYLE 00 days. Dx: Medi mariana VENITA 10 11.8 Branch DAY SENSOR) Kit flash Yes 539 1{each} 1 Each Univers glucose 5-29 every 10 ity of sensor 00:00: (ten) [place] (FREESTYLE 00 days. Dx: Medi mariana VENITA 10 11.8 Branch DAY SENSOR) Kit flash Yes 539 1{each} 1 Each Univers glucose 5-29 every 10 ity of sensor 00:00: () [place] (FREESTYLE 00 days. Dx: Medi mariana VENITA 10 11.8 Branch DAY SENSOR) Kit flash Yes 539 1{each} 1 Each Univers glucose 5-29 every 10 ity of sensor 00:00: () [place] (FREESTYLE 00 days. Dx: Medi mariana VENITA 10 11.8 Branch DAY SENSOR) Kit flash Yes 539 1{each} 1 Each Univers glucose 5-29 every 10 ity of sensor 00:00: () [place] (FREESTYLE 00 days. Dx: Medi mariana VENITA 10 11.8 Branch DAY SENSOR) Kit flash Yes 539 1{each} 1 Each Univers glucose 5-29 every 10 ity of sensor 00:00: () [place] (FREESTYLE 00 days. Dx: Medi mariana VENITA 10 11.8 Branch DAY SENSOR) Kit flash 2020- No 539 1{each} 1 Each Univer s glucose 5-29 05-06 every 10 ity of sensor 00:00: 00:00 (ten) [place] (FREESTYLE 00 :00 days. Dx: Medi mariana VENITA 10 11.8 Branch DAY SENSOR) Kit flash 2020- No 539 1{each} 1 Each Univer s glucose 5-29 05-06 every 10 ity of sensor 00:00: 00:00 () [place] (FREESTYLE 00 :00 days. Dx: Medi mariana VENITA 10 11.8 Branch DAY SENSOR) Kit insulin 2019- No Use AC TID Uni vers aspart 01-12 in insulin ity of U-100 00:00: 00:00 pump, est. [place] (NOVOLOG) 00 :00 15/month Medica l 100 unit/mL Branch cartridge insulin 2019- No 539 Use in Univers aspart 01-12 insulin ity of RAPID 00:00: 00:00 pump est [place] (NOVOLOG 00 :00 100 units Medica l U-100 per day. Branch INSULIN ASPART) 100 unit/mL injection lisinopril 2019- No [id number] 5mg Take 1 Univers 5 mg tablet 01-12 tablet by it y of 00:00: 00:00 mouth [place] 00 :00 daily. Medical Branch flash 2017-08 Yes 539 1{each} 1 Each Univers glucose 0-17 daily. Dx: ity of scanning 00:00: 11.8 [place] reader 00 Medical (FREESTYLE Branch VENITA 10 DAY READER) [facility] [place] 2017-08 Yes 539 1{each} 1 Each Univers glucose 0-17 daily. Dx: ity of scanning 00:00: 11.8 [place] reader 00 Medical (FREESTYLE Branch VENITA 10 DAY READER) [facility] flash 2017-08 Yes 539 1{each} 1 Each Univers glucose 0-17 daily. Dx: ity of scanning 00:00: 11.8 [place] reader 00 Medical (FREESTYLE Branch VENITA 10 DAY READER) [facility] flash 2017-08 Yes 539 1{each} 1 Each Univers glucose 0-17 daily. Dx: ity of scanning 00:00: 11.8 [place] reader 00 Medical (FREESTYLE Branch VENITA 10 DAY READER) [facility] flash 2017-08 Yes 539 1{each} 1 Each Univers glucose 0-17 daily. Dx: ity of scanning 00:00: 11.8 [place] reader 00 Medical (FREESTYLE Branch VENITA 10 DAY READER) [facility] flash 2017-08 Yes 539 1{each} 1 Each Univers glucose 0-17 daily. Dx: ity of scanning 00:00: 11.8 [place] reader 00 Medical (FREESTYLE Branch VENITA 10 DAY READER) [facility] flash 2017-08 Yes 539 1{each} 1 Each Univers glucose 0-17 daily. Dx: ity of scanning 00:00: 11.8 [place] reader 00 Medical (FREESTYLE Branch VENITA 10 DAY READER) [facility] 539 1{each} 1 Each Univers glucose 0-17 daily. Dx: ity of scanning 00:00: 11.8 [place] reader 00 Medical (FREESTYLE Branch VENITA 10 DAY READER) Misc flash 2017-08 Yes 539 1{each} 1 Each Univers glucose 0-17 daily. Dx: ity of scanning 00:00: 11.8 [place] reader 00 Medical (FREESTYLE Branch VENITA 10 DAY READER) [facility] flash 2017- Yes 539 1{each} 1 Each Univers glucose 0-17 daily. Dx: ity of scanning 00:00: 11.8 [place] reader 00 Medical (FREESTYLE Branch VENITA 10 DAY READER) [facility] flash 2017- Yes 539 1{each} 1 Each Univers glucose 0-17 daily. Dx: ity of scanning 00:00: 11.8 [place] reader 00 Medical (FREESTYLE Branch VENITA 10 DAY READER) [facility] flash 2017- Yes 539 1{each} 1 Each Univers glucose 0-17 daily. Dx: ity of scanning 00:00: 11.8 [place] reader 00 Medical (FREESTYLE Branch VENITA 10 DAY READER) [facility] flash 2017- 2020- No 539 1{each} 1 Each Univer s glucose 0-17 05-06 daily. Dx: ity o f scanning 00:00: 00:00 11.8 [place] reader 00 :00 Medical (FREESTYLE Branch VENITA 10 DAY READER) [facility] flash 2017- 2020- No 539 1{each} 1 Each Univer s glucose 0-17 05-06 daily. Dx: ity o f scanning 00:00: 00:00 11.8 [place] reader 00 :00 Medical (FREESTYLE Branch VENITA 10 DAY READER) [facility] mupirocin 2018-0 Yes [id number] Apply to Univers (BACTROBAN) 1-17 area(s) 3 ity of 2 % 00:00: (three) [place] ointment 00 times Medical daily. Branch mupirocin 2018-0 Yes [id number] Apply to Univers (BACTROBAN) 1-17 area(s) 3 ity of 2 % 00:00: (three) [place] ointment 00 times Medical daily. Branch mupirocin 2018-0 Yes [id number] Apply to Univers (BACTROBAN) 1-17 area(s) 3 ity of 2 % 00:00: (three) [place] ointment 00 times Medical daily. Branch mupirocin 2018-0 Yes [id number] Apply to Univers (BACTROBAN) 1-17 area(s) 3 ity of 2 % 00:00: (three) [place] ointment 00 times Medical daily. Branch mupirocin 2018-0 Yes [id number] Apply to Univers (BACTROBAN) 1-17 area(s) 3 ity of 2 % 00:00: (three) [place] ointment 00 times Medical daily. Branch mupirocin 2018-0 Yes [id number] Apply to Univers (BACTROBAN) 1-17 area(s) 3 ity of 2 % 00:00: (three) [place] ointment 00 times Medical daily. Branch mupirocin 2018-0 Yes [id number] Apply to Univers (BACTROBAN) 1-17 area(s) 3 ity of 2 % 00:00: (three) [place] ointment 00 times Medical daily. Branch mupirocin 2018-0 Yes [id number] Apply to Univers (BACTROBAN) 1-17 area(s) 3 ity of 2 % 00:00: (three) [place] ointment 00 times Medical daily. Branch mupirocin 2018-0 Yes [id number] Apply to Univers (BACTROBAN) 1-17 area(s) 3 ity of 2 % 00:00: (three) [place] ointment 00 times Medical daily. Branch mupirocin 2018-0 Yes [id number] Apply to Univers (BACTROBAN) 1-17 area(s) 3 ity of 2 % 00:00: (three) [place] ointment 00 times Medical daily. Branch mupirocin 2018-0 Yes [id number] Apply to Univers (BACTROBAN) 1-17 area(s) 3 ity of 2 % 00:00: (three) [place] ointment 00 times Medical daily. Branch mupirocin 2018-0 Yes [id number] Apply to Univers (BACTROBAN) 1-17 area(s) 3 ity of 2 % 00:00: (three) [place] ointment 00 times Medical daily. Branch mupirocin 2018-0 Yes [id number] Apply to Univers (BACTROBAN) 1-17 area(s) 3 ity of 2 % 00:00: (three) [place] ointment 00 times Medical daily. Branch mupirocin 2018-0 Yes [id number] Apply to Univers (BACTROBAN) 1-17 area(s) 3 ity of 2 % 00:00: (three) [place] ointment 00 times Medical daily. Branch mupirocin 2018-0 Yes [id number] Apply to Univers (BACTROBAN) 1-17 area(s) 3 ity of 2 % 00:00: (three) [place] ointment 00 times Medical daily. Branch mupirocin 2018-0 Yes [id number] Apply to Univers (BACTROBAN) 1-17 area(s) 3 ity of 2 % 00:00: (three) [place] ointment 00 times Medical daily. Branch mupirocin 2018-0 Yes [id number] Apply to Univers (BACTROBAN) 1-17 area(s) 3 ity of 2 % 00:00: (three) [place] ointment 00 times Medical daily. Branch mupirocin 2018-0 Yes [id number] Apply to Univers (BACTROBAN) 1-17 area(s) 3 ity of 2 % 00:00: (three) [place] ointment 00 times Medical daily. Branch mupirocin 2018-0 Yes [id number] Apply to Univers (BACTROBAN) 1-17 area(s) 3 ity of 2 % 00:00: (three) [place] ointment 00 times Medical daily. Branch mupirocin 2018-0 Yes [id number] Apply to Univers (BACTROBAN) 1-17 area(s) 3 ity of 2 % 00:00: (three) [place] ointment 00 times Medical daily. Branch mupirocin 2018-0 Yes [id number] Apply to Univers (BACTROBAN) 1-17 area(s) 3 ity of 2 % 00:00: (three) [place] ointment 00 times Medical daily. Branch mupirocin 2018-0 Yes [id number] Apply to Univers (BACTROBAN) 1-17 area(s) 3 ity of 2 % 00:00: (three) [place] ointment 00 times Medical daily. Branch mupirocin 2018-0 Yes [id number] Apply to Univers (BACTROBAN) 1-17 area(s) 3 ity of 2 % 00:00: (three) [place] ointment 00 times Medical daily. Branch mupirocin 2018-0 Yes [id number] Apply to Univers (BACTROBAN) 1-17 area(s) 3 ity of 2 % 00:00: (three) [place] ointment 00 times Medical daily. Branch mupirocin 2018-0 Yes [id number] Apply to Univers (BACTROBAN) 1-17 area(s) 3 ity of 2 % 00:00: (three) [place] ointment 00 times Medical daily. Branch mupirocin 2018-0 Yes [id number] Apply to Univers (BACTROBAN) 1-17 area(s) 3 ity of 2 % 00:00: (three) [place] ointment 00 times Medical daily. Branch mupirocin 2018-0 Yes [id number] Apply to Univers (BACTROBAN) 1-17 area(s) 3 ity of 2 % 00:00: (three) [place] ointment 00 times Medical daily. Branch mupirocin 2018-0 Yes [id number] Apply to Univers (BACTROBAN) 1-17 area(s) 3 ity of 2 % 00:00: (three) [place] ointment 00 times Medical daily. Branch mupirocin 2018-0 Yes [id number] Apply to Univers (BACTROBAN) 1-17 area(s) 3 ity of 2 % 00:00: (three) [place] ointment 00 times Medical daily. Branch mupirocin 2018-0 Yes [id number] Apply to Univers (BACTROBAN) 1-17 area(s) 3 ity of 2 % 00:00: (three) [place] ointment 00 times Medical daily. Branch mupirocin 2018-0 Yes [id number] Apply to Univers (BACTROBAN) 1-17 area(s) 3 ity of 2 % 00:00: (three) [place] ointment 00 times Medical daily. Branch mupirocin 2018-0 Yes [id number] Apply to Univers (BACTROBAN) 1-17 area(s) 3 ity of 2 % 00:00: (three) [place] ointment 00 times Medical daily. Branch mupirocin 2018-0 Yes [id number] Apply to Univers (BACTROBAN) 1-17 area(s) 3 ity of 2 % 00:00: (three) [place] ointment 00 times Medical daily. Branch mupirocin 2018-0 Yes [id number] Apply to Univers (BACTROBAN) 1-17 area(s) 3 ity of 2 % 00:00: (three) [place] ointment 00 times Medical daily. Branch mupirocin 2018-0 Yes [id number] Apply to Univers (BACTROBAN) 1-17 area(s) 3 ity of 2 % 00:00: (three) [place] ointment 00 times Medical daily. Branch mupirocin 2018-0 Yes [id number] Apply to Univers (BACTROBAN) 1-17 area(s) 3 ity of 2 % 00:00: (three) [place] ointment 00 times Medical daily. Branch mupirocin 2017-0 Yes [id number] Apply to Univers (BACTROBAN) 1-17 area(s) 3 ity of 2 % 00:00: (three) [place] ointment 00 times Medical daily. Branch mupirocin 2017-0 Yes [id number] Apply to Univers (BACTROBAN) 1-17 area(s) 3 ity of 2 % 00:00: (three) [place] ointment 00 times Medical daily. Branch mupirocin 2017-0 Yes [id number] Apply to Univers (BACTROBAN) 1-17 area(s) 3 ity of 2 % 00:00: (three) [place] ointment 00 times Medical daily. Branch mupirocin 2017-0 Yes [id number] Apply to Univers (BACTROBAN) 1-17 area(s) 3 ity of 2 % 00:00: (three) [place] ointment 00 times Medical daily. Branch mupirocin 2018-0 Yes [id number] Apply to Univers (BACTROBAN) 1-17 area(s) 3 ity of 2 % 00:00: (three) [place] ointment 00 times Medical daily. Branch mupirocin 2017- Yes [id number] Apply to Univers (BACTROBAN) 1-17 area(s) 3 ity of 2 % 00:00: (three) [place] ointment 00 times Medical daily. Branch mupirocin 2017-2020- No [id number] Apply to Univers (BACTROBAN) 1-17 04-26 area(s) 3 it y of 2 % 00:00: 00:00 (three) [place] ointment 00 :00 times Medical daily. [place] Vital Signs Vital Name Observation Time Observation Value Comments Source Body temperature 2021-04-17 19:04:00 36.17 [place] [facility] 2021-04-17 19:04:00 170.2 cm [facility] [place] [facility] Body weight 2021-04-17 19:04:00 61.236 kg [facility] [place] [facility] BMI 2021-04-17 19:04:00 21.14 kg/m2 [facility] [place] [facility] Systolic blood 2021-04-17 14:34:00 161 mm[Hg] Univer sity of pressure [place] [facility] Diastolic blood 2021-04-17 14:34:00 97 mm[Hg] Unive rsity of pressure [place] [facility] Heart rate 2021-04-17 14:34:00 91 /min [facility] [place] [facility] Body temperature 2021-04-17 14:34:00 36.17 [place] Univ ers[facility] [place] [facility] Respiratory rate 2021-04-17 14:34:00 18 /min Univ [facility] [place] [facility] Body height 2021-04-17 14:34:00 170.2 cm [facility] [place] [facility] Body weight 2021-04-17 14:34:00 61.236 kg [facility] [place] [facility] BMI 2021-04-17 14:34:00 21.14 kg/m2 [facility] [place] [facility] Oxygen saturation in 2021-04-17 14:34:00 96 /min room air University of Arterial blood by [facility] Pulse oximetry Branch Systolic blood 2020-12-12 16:04:00 151 mm[Hg] Univer sity of pressure [place] [facility] Diastolic blood 2020-12-12 16:04:00 93 mm[Hg] Unive rsity of pressure [place] [facility] Heart rate 2020-12-12 16:04:00 86 /min [facility] [place] [facility] Body temperature 2020-12-12 16:04:00 37 [place] Univ ers[facility] [place] [facility] Respiratory rate 2020-12-12 16:04:00 17 /min Univ ers[facility] [place] [facility] Body height 2020-12-12 16:04:00 170.2 cm [facility] [place] [facility] Body weight 2020-12-12 16:04:00 62.052 kg [facility] [place] [facility] BMI 2020-12-12 16:04:00 21.43 kg/m2 [facility] [place] [facility] Oxygen saturation in 2020-12-12 16:04:00 98 /min room air University of Arterial blood by [facility] Pulse oximetry Branch Systolic blood 2020-09-12 16:48:00 149 mm[Hg] Univer sity of pressure [place] [facility] Diastolic blood 2020-09-12 16:48:00 95 mm[Hg] Unive rsity of pressure [facility] Branch Heart rate 2020-09-12 16:48:00 96 /min Universi ty [facility] [place] [facility] [place] Body temperature 2020-09-12 16:48:00 36.61 [place] Univ ersity of [facility] Respiratory rate 2020-09-12 16:48:00 18 /min Univ ersity of [facility] Body height 2020-09-12 16:48:00 170.2 cm [facility]i ty [facility] [place] [facility] [place] Body weight 2020-09-12 16:48:00 61.054 kg [facility] [place] [facility] BMI 2020-09-12 16:48:00 21.08 kg/m2 Universi ty of [facility] Systolic blood 2020-05-09 14:13:00 161 mm[Hg] Univer sity of pressure [facility] Diastolic blood 2020-05-09 14:13:00 98 mm[Hg] Unive rsity of pressure [facility] Heart rate 2020-05-09 14:13:00 94 /min [facility] [place] [facility] [place] Body temperature 2020-05-09 14:13:00 37 [place] Univ ersity of [facility] Respiratory rate 2020-05-09 14:13:00 20 /min Univ ersity of [facility] Body height 2020-05-09 14:13:00 170.2 cm [facility] [place] [facility] [place] Body weight 2020-05-09 14:13:00 63.64 kg [facility] [place] [facility] BMI 2020-05-09 14:13:00 21.97 kg/m2 [facility] [place] [facility] Oxygen saturation in 2020-05-09 14:13:00 99 /min University of Arterial blood by [facility] Pulse oximetry Branch Body height 2020-01-13 13:16:00 170.2 cm [facility] [place] [facility] Body weight 2020-01-13 13:16:00 63.957 kg [facility] [place] [facility] BMI 2020-01-13 13:16:00 22.08 kg/m2 Universi ty of [facility] Branch Systolic blood 2020-01-04 13:21:00 166 mm[Hg] Univer sity of pressure [place] [facility] Diastolic blood 2020-01-04 13:21:00 101 mm[Hg] Unive rsity of pressure [place] [facility] Heart rate 2020-01-04 13:21:00 92 /min Universi ty of [facility] Body temperature 2020-01-04 13:21:00 37 [place] Univ ersity of [facility] Branch Respiratory rate 2020-01-04 13:21:00 20 /min [facility] Body height 2020-01-04 13:21:00 170.2 cm [facility] [place] [facility] Body weight 2020-01-04 13:21:00 63.912 kg [facility] [place] [facility] BMI 2020-01-04 13:21:00 22.07 kg/m2 Universi ty of [facility] Systolic blood 2019-04-13 15:40:00 136 mm[Hg] Univer sity of pressure [place] [facility] Diastolic blood 2019-04-13 15:40:00 86 mm[Hg] Unive rsity of pressure [facility] Heart rate 2019-04-13 15:40:00 93 /min Universi ty [facility] [place] [facility] [place] Body temperature 2019-04-13 15:38:00 37.17 [place] [facility] Respiratory rate 2019-04-13 15:38:00 16 /min [facility] Body height 2019-04-13 15:38:00 170.2 cm [facility] [place] [facility] Body weight 2019-04-13 15:38:00 61.009 kg [facility] [place] [facility] BMI 2019-04-13 15:38:00 21.07 kg/m2 Universi ty of [facility] Branch Oxygen saturation in 2019-04-13 15:38:00 100 /min room air University of Arterial blood by [facility] Pulse oximetry Branch Procedures Procedure Date / Time Performing Clinician Source Performed CONSENT/REFUSAL FOR 2021-04-17 14:14:23 [facility] DIAGNOSIS AND TREATMENT [facility] POCT HEMOGLOBIN A1C TEST 2021-04-17 00:00:00 [facility]OND[facility] 2021-04-08 05:01:00 Doctor Jorge, [facility] [place] EXTERNAL PROVIDER RECORDS 2020-12-27 05:01:00 Doctor Jorge, [facility] [place] [facility] POCT HEMOGLOBIN A1C TEST 2020-12-12 16:07:00 [facility] [place] DME/SUPPLY JUSTIFICATION 2020-12-10 05:01:00 Doctor Unabrunildaigned, [facility] EXTERNAL PROVIDER RECORDS 2020-11-13 05:01:00 Doctor Unassigned, [facility] DIABETES TESTING REPORTS 2020-09-12 06:01:00 Doctor Unassigned, [facility] EXTERNAL PROVIDER RECORDS 2020-05-30 05:01:00 Doctor Unassigned, [facility] EXTERNAL PROVIDER RECORDS 2020-05-22 05:01:00 Doctor Linassigned, [facility] POCT HEMOGLOBIN A1C TEST 2020-05-09 14:15:00 [facility] [place] EXTERNAL PROVIDER - 2020-03-12 05:01:00 Doctor Jorge, [facility] [place] [facility] [place] RADIOLOGY REFERRAL- 2020-01-30 05:01:00 Doctor Jorge, [facility] REQUEST/RESPONSE [place] [facility] DIABETES TESTING REPORTS 2020-01-04 05:01:00 Doctor Reedigned, [facility] POCT HEMOGLOBIN A1C TEST 2020-01-04 00:00:00 [facility] 2019-09-14 06:01:00 Doctor Jorge, [facility] REQUEST/RESPONSE [place] [facility] DME/SUPPLY JUSTIFICATION 2019-08-23 06:01:00 Doctor Jorge, [facility] [place] [facility] POCT HEMOGLOBIN A1C TEST 2019-04-13 15:40:00 [facility] [place] Encounters Start End Encounter Admission Attending Care Care Encounter Source Date/Time Date/Time Type Type Clinicians Facility Department ID 2022-04-23 2022-04-23 Outpatient R [facility] [id number] -20 Univers 14:00:00 14:00:00 PAULINA [id number] [facility] 2021-10-16 2021-10-16 Outpatient R [facility] [id number] -[id number] [facility] 08:00:00 08:00:00 MIKE [id number] ity [facility] 2021-10-16 2021-10-16 Outpatient R [facility] [id number] Univers 08:00:00 08:00:00 MIKE ity [facility] 2021-04-23 2021-04-23 Ancillary Chacha Hernandez [facility] 1.2.84 0.114 [id number] Univers 11:19:49 12:32:40 Visit Inés Emery 350.1.13.10 ity of NATIONAL 4.2.7.2.686 [place] B[place] [phone] [facility] [address]G. [address] [place] 2021-04-23 2021-04-23 [facility] [id number] Univers 11:00:00 11:00:00 INÉS ity [facility] 2021-04-23 2021-04-23 Outpatient [facility] [id number] -[id number] Univers 11:00:00 11:00:00 [id number] ity [facility] 2021-04-17 2021-04-17 Office [place], [facility] [id number] [facility] 14:03:02 14:50:30 Visit Paulina Rosas 350.1.13.10 it y of N[place] 4[place]2.7.2.[place] [phone] [facility] BLDG. [address] [place] 2021-04-17 2021-04-17 Office [facility] 1.2.840.114 [id number] Univers 09:14:48 12:34:20 Visit Mike SANTIAGO 350.1.13.10 ity of C[place] 4.2.7.2.686 [place] [phone] De dical [address] 2021-04-17 2021-04-17 Ancillary 1, [employer] [facility] 1.2.840.114 [id number] Univers 10:28:35 11:20:46 Visit Mike Vuong 350.1.13.10 ity of [place] 4.2.7.2.686 [place] [phone] [facility] [address]LDG. [address] [place] 2021-04-17 2021-04-17 [facility] [id number] -[id number] Univers 09:00:00 09:00:00 MIKE [id number] ity [facility] 2021-04-17 2021-04-17 Outpatient R [facility] [id number] Univers 09:00:00 09:00:00 MIKE ity [facility] 2021-04-17 2021-04-17 Orders Doctor LENNON 1.2.840.114 [id number] Univers 00:00:00 00:00:00 Only Unassigned, KRISTIN 350.1.13.10 ity of [place] [facility] 4.2.7.2.686 [place] [phone] [facility] [address] [place] 2021-04-08 2021-04-08 Orders Doctor CITLALLI 1.2.840.114 [id number] Univers 00:00:00 00:00:00 Only Unassigned, KRISTIN 350.1.13.10 ity of [place] [facility] 4.2.7.2.686 [place] [phone] [address] 2021-03-13 2021-03-13 Outpatient R [facility] [id number] -[id number] Univers 09:00:00 09:00:00 MIKE [id number] ity [facility] 2021-01-09 2021-01-09 Telephone [facility] 1.2.105.585 [id number] Univers 00:00:00 00:00:00 Mike Conte PRIMARY 350.1.13.10 [place] [phone] De dical [address] [place] 2021-01-08 2021-01-08 Telephone [facility] 1.2.028.206 [id number] Univers 00:00:00 00:00:00 Mike Conte PRIMARY 350.1.13.10 [place] [id number] De dical [address] 2020-12-27 2020-12-27 Orders Doctor LENNON 1.2.840.114 [id number] Univers 00:00:00 00:00:00 Only Unassigned, KRISTIN 350.1.13.10 ity of [place] [facility] 4.2.7.2.686 [place] [phone] [facility] mariana 009 Branch 2020-12-12 2020-12-12 Office [facility] 1.2.840.114 [id number] Univers 10:35:43 12:51:22 Visit Mike Conte PRIMARY 350.1.13.10 [place] [id number] De dical [address] 2020-12-12 2020-12-12 Outpatient R [facility] [id number] -[id number] Univers 10:30:00 10:30:00 IMKE [id number] ity [facility] 2020-12-12 2020-12-12 Outpatient R [facility] [id number] Univers 10:30:00 10:30:00 MIKE ity [facility] 2020-12-11 2020-12-11 Outpatient [facility] [id number] -20 Univers 11:30:00 11:30:00 AMELIA [id number] ity [facility] 2020-12-10 2020-12-10 Telephone [facility] 1.2.893.668 [id number] Univers 00:00:00 00:00:00 Mike Conte PRIMARY 350.1.13.10 [place] [phone] De dical [address] 2020-12-10 2020-12-10 Refill [facility] 1.2.840.114 [id number] Univers 00:00:00 00:00:00 Mike J PRIMARY 350.1.13.10 [place] [phone] De dical [address] 2020-12-10 2020-12-10 Orders Doctor CITLALLI 1.2.840.114 [id number] Univers 00:00:00 00:00:00 Only Unassigned, KRISTIN 350.1.13.10 ity of [place] [facility] 4.2.7.2.686 [place] [phone] Medi mariana 009 Branch 2020-12-06 2020-12-06 Telephone [facility] [id number] [id number] Univers 00:00:00 00:00:00 Mike J PRIMARY 350.1.13.10 [place] [phone] De dical [address] 2020-12-05 2020-12-05 Telephone [facility] 1.2.457.616 [id number] Univers 00:00:00 00:00:00 Mike J PRIMARY 350.1.13.10 [place] [phone] De dical [address] 2020-11-29 2020-11-29 Telephone [facility] 1.2.527.240 [id number] Univers 00:00:00 00:00:00 Mike J PRIMARY 350.1.13.10 [place] [id number] De dical [address] 2020-11-13 2020-11-13 Orders Doctor CITLALLI 1.2.840.114 [id number] Univers 00:00:00 00:00:00 Only Unassigned, KRISTIN 350.1.13.10 ity of [place] [facility] 4.2.7.2.686 [place] [phone] [facility] 009 Branch 2020-11-06 2020-11-06 [facility] 1.2.840.114 [id number] Univers 00:00:00 00:00:00 Outreach Harry PRIMARY 350.1.13.10 i ty of [place]2.7.[place] [phone] De dical [address] 2020-09-14 2020-09-14 [facility]phone [facility] 1.2.840.114 [id number] Univers 00:00:00 00:00:00 Jill MULTISPEC 350.1.13.10 it[place] of [place] [phone] [facility] AND JAIMES [address] [facility] 2020-09-12 2020-09-12 Garment Mender Pcp-Lab [facility] 1.2.840.114 [id number] Univers 11:59:11 12:14:11 Visit Mike Vuong PRIMARY 350.1.13.10 [place] [phone] De dical [address] 2020-09-12 2020-09-12 Office [facility] 1.2.840.114 [id number] Univers 10:28:54 11:59:16 Visit Mike Dg PRIMARY 350.1.13.10 [place] [id number] De dical [address] 2020-09-12 2020-09-12 Outpatient R [facility] [id number] Univers 10:30:00 10:30:00 MIKE [id number] [facility] [place] 2020-09-12 2020-09-12 Outpatient R [facility] [id number] Univers 10:30:00 10:30:00 MIKE [facility] 2020-09-12 2020-09-12 Orders Doctor CITLALLI 1.2.840.114 [id number] Univers 00:00:00 00:00:00 Only Unassigned, KRISTIN 350.1.13.10 ity of [place] [facility] 4.2.7.2.686 [place] [phone] [facility] [address] [place] 2020-09-11 2020-09-11 Telephone [facility] 1.2.982.078 [id number] Univers 00:00:00 00:00:00 Mike Conte PRIMARY 350.1.13.10 [place] [id number] De dical [address] 2020-07-17 2020-07-17 Telephone [facility] 1.2.683.445 [id number] Univers 00:00:00 00:00:00 Mike Conte PRIMARY 350.1.13.10 [place] [phone] De dical [address] 2020-07-11 2020-07-11 Refill [facility] 1.2.840.114 [id number] Univers 00:00:00 00:00:00 Mike Conte PRIMARY 350.1.13.10 [place] [phone] De dical [address] [place] 2020-05-30 2020-05-30 Orders Doctor CITLALLI 1.2.840.114 [id number] Univers 00:00:00 00:00:00 Only Unassigned, KRISTIN 350.1.13.10 ity of [place] [facility] 4.2.7.2.686 [place] [phone] [facility] [address] [place] 2020-05-22 2020-05-22 Orders Doctor CITLALLI 1.2.840.114 [id number] Univers 00:00:00 00:00:00 Only Unassigned, KRITSIN 350.1.13.10 ity of [place] [facility] 4.2.7.2.686 [place] [phone] [address] 2020-05-09 2020-05-09 Garment Mender Pcp-Lab [facility] 1.2.840.114 [id number] Univers 10:09:48 10:24:48 Visit JensMike PRIMARY 350.1.13.10 [place] [phone] De dicut [address] [place] 2020-05-09 2020-05-09 Office [facility] 1.2.840.114 [id number] Univers 08:33:59 10:17:45 Visit Mike Conte PRIMARY 350.1.13.10 [place] [id number] [facility] [address] [place] 2020-05-09 2020-05-09 Outpatient R [facility] [id number] -[id number] Univers 08:00:00 08:00:00 MIKE [id number] ity [facility] 2020-05-09 2020-05-09 Outpatient R [facility] [id number] Univers 08:00:00 08:00:00 MIKE ity [facility] 2020-04-20 2020-04-20 Outpatient R DEBBIE [facility] [id number] Univers 08:30:00 08:30:00 Estrellita ity [facility] 2020-03-12 2020-03-12 Orders Doctor CITLALLI 1.2.840.114 [id number] Univers 00:00:00 00:00:00 Only Unassigned, KRISTIN 350.1.13.10 ity of [facility] 4.2.7.2.686 [place] [phone] [place] [address] Branch 2020-03-01 2020-03-01 Outpatient R [facility] [id number] -[id number] Univers 20:00:00 20:00:00 [id number] ity of [facility] 2020-03-01 2020-03-01 Outpatient R [facility] [id number] Univers 20:00:00 20:00:00 ATASAMINA MARIEWVDemetria ity of [facility] 2020-02-27 2020-02-27 Outpatient [facility] [id number] -[id number] Univers 15:30:00 15:30:00 [id number] ity of [facility] 2020-02-27 2020-02-27 Outpatient R [facility] [id number] Univers 15:30:00 15:30:00 ity of [facility] 2020-01-30 2020-01-30 Orders Doctor CITLALLI 1.2.840.114 [id number] Univers 00:00:00 00:00:00 Only Unassigned, KRISTIN 350.1.13.10 ity of [facility] 4.2.7.2.686 [place] [phone] [facility] 009 Branch 2020-01-13 2020-01-13 Outpatient R DE[facility]BIE [facility] [id number] Univers 08:30:00 08:30:00 [id number] ity of [facility] 2020-01-13 2020-01-13 Outpatient R DE[facility]BIE [facility] [id number] Univers 08:30:00 08:30:00 ity of [facility] 2020-01-13 2020-01-13 Telemedici Raul [facility] 1.2.840.114 [id number] Univers 06:58:53 07:28:53 ne Visit MULTISPEC 350.1.13.10 it[place] [phone] [facility] AND [place]IONA 085 [address] [facility] 2020-01-13 2020-01-13 Patient Doctor [facility] 1.2.840.114 [id number] Univers 00:00:00 00:00:00 Secure Msg Unassigned, MULTISPEC 350.1.13.10 ity of [place]2.[place] [id number] [facility] AND JAIMES [address] [facility] 2020-01-04 2020-01-04 Office [facility] 1.2.840.114 [id number] Univers 08:11:04 08:41:04 Visit Mike Conte PRIMARY 350.1.13.10 [place] [id number] De dical [address] [place] 2020-01-04 2020-01-04 Outpatient R [facility] [id number] Univers 08:00:00 08:00:00 MIKE [id number] ity [facility] 2020-01-04 2020-01-04 Outpatient R [facility] [id number] Univers 08:00:00 08:00:00 [facility] [place] 2020-01-04 2020-01-04 Orders Doctor CITLALLI 1.2.840.114 [id number] Univers 00:00:00 00:00:00 Only Unassigned, KRISTIN 350.1.13.10 ity of [place] [facility] 4.2.7.2.686 [place] [phone] [facility] 00[address] 2019-12-21 2019-12-21 Telemedici [facility] 1.2.840.114 [id number] Univers 06:57:53 08:53:57 ne Visit Mike Conte PRIMARY 350.1.13.10 [place] [id number] De dical [address] 2019-12-21 2019-12-21 Outpatient R [facility] [id number] Univers 08:00:00 08:00:00 MIKE [id number] ity [facility] 2019-12-21 2019-12-21 Outpatient R [facility] [id number] Univers 08:00:00 08:00:00 MIKE ity [facility] 2019-12-20 2019-12-20 Refill [facility] 1.2.840.114 [id number] Univers 00:00:00 00:00:00 Mike J PRIMARY 350.1.13.10 [place] [phone] De dical [address] [place] 2019-12-12 2019-12-12 Refill [facility] 1.2.840.114 [id number] Univers 00:00:00 00:00:00 Mike J PRIMARY 350.1.13.10 it[place] [id number] De dicut [address] [place] 2019-11-09 2019-11-09 Patient [facility] 1.2.840.114 [id number] Univers 00:00:00 00:00:00 Secure Msg Mike J PRIMARY 350.1.13.10 it[place] [id number] De dicut [address] [place] 2019-09-14 2019-09-14 Orders Doctor CITLALLI 1.2.840.114 [id number] Univers 00:00:00 00:00:00 Only Unassigned, KRISTIN 350.1.13.10 ity of [place] [facility] 4.2.7.2.686 [place] [id number] [address] 2019-09-09 2019-09-09 Letter [facility] 1.2.634.671 [id number] Univers 00:00:00 00:00:00 (Out) Cyndie PRIMARY 350.1.13.10 [place] [phone] [facility] [address] [place] 2019-09-08 2019-09-08 Nurse Nurse, Pcp Nando/Fiona Diab [facility] 1.2.840.114 [id number] Univers 14:22:22 15:50:39 Visit Nikolas Menjivar PRIMARY 350.1.13.10 [place] [phone] [facility] [address] [place] 2019-09-08 2019-09-08 Telephone Fry [facility] 1.2.840.114 [id number] Univers 00:00:00 00:00:00 Cyndie MULTISPEC 350.1.13.10 it[place] of [place] [phone] [facility] [place] [address] [place] [facility] 2019-09-06 2019-09-06 Telephone [facility] 1.2.263.169 [id number] Univers 00:00:00 00:00:00 Mike J PRIMARY 350.1.13.10 [place] [phone] [facility] [address] [place] 2019-08-23 2019-08-23 Orders Doctor CITLALLI 1.2.840.114 [id number] Univers 00:00:00 00:00:00 Only Unassigned, KRISTIN 350.1.13.10 ity of [place] [facility] 4.2.7.2.686 [place] [phone] [facility] [address] 2019-08-04 2019-08-04 Patient [facility] 1.2.840.114 [id number] Univers 00:00:00 00:00:00 Secure Msg Mike J PRIMARY 350.1.13.10 it[place] [id number] [facility] [address] [place] 2019-04-13 2019-04-13 Office [facility] 1.2.840.114 [id number] Univers 10:31:20 11:01:20 Visit Mike J PRIMARY 350.1.13.10 it[place] [id number] [facility] [address] [place] Results Test Description Test Time Test Comments Results Result Comments Source POCT HEMOGLOBIN A1C TEST 2021-04-17 14:56:00 Test Item Value Reference Range Interpretation Comme nts POCT HBA1C (test code = 4548-4) 8.1 % 4-6 A Lab Interpretation (test code = 05055-3) [facility] [id number] 14:56:00 Test Item Value Reference Range Interpretation Comments POCT HBA1C (test code = 4548-4) 8.1 % 4-6 A Lab Interpretation (test code = Abnormal 21841-1) [facility] HEMOGLOBIN A1C [id number] 16:13:00 Test Item Value Reference Range Interpretation Comments POCT HBA1C (test code = 4548-4) 9.4 % 4-6 A Lab Interpretation (test code = Abnormal 04057-9) [facility] HEMOGLOBIN A1C [id number] 16:13:00 Test Item Value Reference Range Interpretation Comments POCT HBA1C (test code = 4548-4) 9.4 % 4-6 A Lab Interpretation (test code = Abnormal 83150-3) [facility] HEMOGLOBIN A1C [id number] 14:15:00 Test Item Value Reference Range Interpretation Comments POCT HBA1C (test code = 4548-4) 6.9 % 4-6 A Lab Interpretation (test code = Abnormal 58354-3) [facility] HEMOGLOBIN A1C [id number] 14:15:00 Test Item Value Reference Range Interpretation Comments POCT HBA1C (test code = 4548-4) 6.9 % 4-6 A Lab Interpretation (test code = Abnormal 83795-1) [facility] HEMOGLOBIN A1C [id number] 14:15:00 Test Item Value Reference Range Interpretation Comments POCT HBA1C (test code = 4548-4) 6.9 % 4-6 A Lab Interpretation (test code = Abnormal 05059-8) [facility] HEMOGLOBIN A1C [id number] 14:15:00 Test Item Value Reference Range Interpretation Comments POCT HBA1C (test code = 4548-4) 6.9 % 4-6 A Lab Interpretation (test code = Abnormal 54168-4) [facility] HEMOGLOBIN A1C [id number] 13:35:00 Test Item Value Reference Range Interpretation Comments POCT HBA1C (test code = 4548-4) 7.6 % 4-6 A Lab Interpretation (test code = Abnormal 67067-0) [facility] HEMOGLOBIN A1C [id number] 13:35:00 Test Item Value Reference Range Interpretation Comments POCT HBA1C (test code = 4548-4) 7.6 % 4-6 A Lab Interpretation (test code = Abnormal 30431-8) [facility] HEMOGLOBIN A1C [id number] 15:47:00 Test Item Value Reference Range Interpretation Comments POCT HBA1C (test code = 4548-4) 10.7 % 4-6 A Lab Interpretation (test code = Abnormal 06665-7) [facility]
[2021-07-28] MEDS ORDERED: NA CHLORIDE 0.9% 1,000 ML ONE ×2 (20:31→21:48)
[2021-07-28 20:37] LABS: Absolute Lymphocytes (CBC) 0.7 K/uL (0.7-4.9); Basophils % 0.1 % (0-1.3); Hematocrit 38.3 % (39.6-49.0); Lymphocytes % 3.1 % (15.3-44.8); MPV 8.2 fL (7.6-11.3); RBC Red Blood Cell Count 4.16 M/uL (4.33-5.43)
[2021-07-28 20:40] LABS: Protime INR 0.97
[2021-07-28 20:46] LABS: ALT/SGPT 36 U/L (12-78); AST/SGOT 64 U/L (15-37); Albumin 3.3 g/dL (3.4-5.0); Alkaline Phosphatase 121 U/L (45-117); BUN Blood Urea Nitrogen 20 mg/dL (7-18); Bicarbonate 27 mmol/L (21-32); Bilirubin Direct 0.2 mg/dL (0-0.2); Bilirubin Total 0.4 mg/dL (0.2-1.0); Glucose Level 123 mg/dL (74-106); Potassium 4.6 mmol/L (3.5-5.1); Protein, Total 6.6 g/dL (6.4-8.2); Sodium Level 145 mmol/L (136-145)
[2021-07-28 20:55] LABS: Creatine Phosphokinase 2398 U/L (39-308)
--- NOTE | 2021-07-28 21:28 | RAD REPORT ---
EXAM DESCRIPTION: CT - Head C Spine Cap W Con - 07/28/2021 9:13 pm CLINICAL HISTORY: PAIN COMPARISON: No comparisonsBREAST/AXILLA, COMPLETE dated 11/21/2020 TECHNIQUE: Axial [address] head images were obtained. Axial [address] cervical spine images were obtaine d with sagittal and coronal reconstruction images reviewed. During dynamic enhancement of 100mL non-i onic contrast, axial 5 mm images of the chest, abdomen and pelvis were obtained. Biphasic technique p erformed of the abdomen and pelvis. All CT scans are performed using dose optimization technique as appropriate and may include automated exposure control or mA/KV adjustment according to patient size. FINDINGS: No intracranial hemorrhage, mass or edema. No midline shift or abnormal fluid collection. Mastoid air cells and paranasal sinuses are clear. No skull fracture. CT cervical spine imaging shows normal height. Normal alignment of the vertebrae. No disc space narro wing. No paraspinal mass or hematoma seen. Central canal detail is inherently limited. Concerns for t raumatic disc herniation or traumatic cord injury can be further addressed with MR imaging. CT chest shows no pneumothorax, pulmonary contusion or pleural fluid collection. No mediastinal hemat brenda and the aorta and pulmonary arteries are unremarkable. No chest will mass or abnormal axillary fi nding. Minimal gynecomastia is evident. No displaced rib fracture or other significant bony finding. CT abdomen and pelvis show no injury to solid abdominal viscera. Gallbladder and biliary tree are unr emarkable. No bowel injury or significant finding. No free air, free fluid or abnormal stranding. No urinary bladder abnormality. No significant bony finding. No significant vascular finding. On the inferior-most image there is an 18 millimeter rounded focal mass in the subcutaneous fatty tis sues medial margin left infragluteal fold. No involvement of the perineum evident. This is not fully assessed on this image. This portion of the body generally falls outside of typical [id number] for examination requested. Abscess is possible though the adjacent or surrounding subcutaneous fat is no t congested or edematous. IMPRESSION: No significant CT Head finding. No significant CT Cervical Spine finding. No significant CT Chest finding. No significant CT Abdomen and Pelvis finding. In the subcutaneous fat medial margin left infragluteal fold there is an 18 millimeter rounded mass. A thin dense rim is present with the central portion low in density, similar to surrounding fat. Mass is incompletely visualized as on the inferior-most image abscess or focal infectious process is poss ible though the surrounding subcutaneous fat does not show congestion or edema. Fat necrosis from sarah or trauma is possible.
[2021-07-28] MEDS ORDERED: ONDANSETRON 4 MG/2 ML VIAL ONE (21:32)
[2021-07-28] MEDS ORDERED: MORPHINE 4 MG/ML SYR ONE (21:32)
--- NOTE | 2021-07-28 21:40 | ER ---
Nurse's Notes [facility] Name: Nick Toure Age: 31 yrs Sex: Male : 1990 Arrival Date: 07/28/2021 Time: 19:40 Bed 5 Private MD: Diagnosis: Cellulitis of buttock;Cutaneous abscess of buttock Presentation: 07/28 19:53 Chief complaint: EMS states: Called for patient altered, lying on floor since 0200 this lp1 AM after about 2 alcoholic beverages at green party last night; Per EMS, glucose of 47, administered D10 by IV, glucose up to 84, patient more alert and responsive. Coronavirus screen: At this time, the client does not indicate any symptoms associated with coronavirus-19. Ebola Screen: No symptoms or risks identified at this time. Initial Sepsis Screen: Does the patient meet any 2 criteria? No. Patient's initial sepsis screen is negative. Does the patient have a suspected source of infection? No. Patient's initial sepsis screen is negative. Risk Assessment: Do you want to hurt yourself or someone else? Patient reports no desire to harm self or others. Onset of symptoms was July 28, 2021. Care prior to arrival: IV initiated. 20 GA, in the left antecubital area, Glucose check: 84 Oxygen administered. via nasal cannula. 19:53 Method Of Arrival: EMS: [facility] lp1 19:53 Acuity: GRAZYNA 3 lp1 Historical: - Allergies: 07/29 00:18 No Known Allergies; lp1 - Home Meds: 07/28 19:55 lisinopril 10 mg oral tab once daily [Active]; Novolog 100 unit/mL Sub-Q soln [Active]; lp1 Insulin pump [Active]; - PMHx: 19:55 Diabetes - IDDM; Hypertensive disorder; lp1 - PSHx: 19:55 None; lp1 - Immunization history:: Adult Immunizations up to date. - Social history:: Smoking status: Patient reports the use of cigarette tobacco products, smokes one pack cigarettes per day. Screenin:56 Abuse screen: Denies threats or abuse. Denies injuries from another. Nutritional lp1 screening: No deficits noted. Tuberculosis screening: No symptoms or risk factors identified. Fall Risk None identified. Assessment: 19:56 Reassessment: Insulin pump removed from posterior left upper arm. lp1 20:00 General: Appears in no apparent distress. Behavior is restless. Pain: Complains of pain lp1 in back and coccyx Pain currently is 4 out of 10 on a pain scale. Neuro: Level of Consciousness is awake, alert, obeys commands, Oriented to person, place, time, situation. Cardiovascular: Patient's skin is warm and dry. Respiratory: Respiratory effort is even, unlabored. GI: No signs and/or symptoms were reported involving the gastrointestinal system. : No signs and/or symptoms were reported regarding the genitourinary system. EENT: No signs and/or symptoms were reported regarding the EENT system. Derm: Skin is intact, Skin is dry, Skin is normal. Musculoskeletal: No deficits noted. 21:30 Reassessment: Patient reports pain to chest, "feels like muscle spasms"; patient lp1 grunting, appears restless, states "it makes if hard to breathe"; Provider notified. 22:00 Reassessment: Family at bedside. General: Appears comfortable, Behavior is calm. lp1 22:58 Reassessment: Patient appears in no apparent distress at this time. Reassessment: lp1 Reports pain to chest and back significantly improved. General: Appears in no apparent distress. comfortable, Behavior is calm. 23:55 Reassessment: Patient appears in no apparent distress at this time. Patient states lp1 feeling better. Patient states symptoms have improved. Vital Signs: 19:53 BP 162 / 95; Pulse 118; Resp 19; Temp 97.6(O); Pulse Ox 97% on R/A; Weight 63.5 kg (R); lp1 Height 5 ft. 7 in. (170.18 cm); 21:00 BP 132 / 94; Pulse 123; Resp 22; Pulse Ox 100% on R/A; lp1 21:30 BP 163 / 96; Pulse 117; Resp 20; Pulse Ox 100% on 2 lpm NC; lp1 23:57 BP 104 / 60; Pulse 108; Resp 19; Pulse Ox 100% on 2 lpm NC; lp1 19:53 Body Mass Index 21.93 (63.50 kg, 170.18 cm) lp1 Thanh Coma Score: 19:56 Eye Response: spontaneous(4). Verbal Response: oriented(5). Motor Response: obeys lp1 commands(6). Total: 15. ED Course: 19:40 Patient arrived in ED. mw2 19:48 Andrea Shepherd MD is Attending Physician. torin 19:49 Andrea Evans PA is PHCP. cp 19:53 Natalie Beard, JOHNY is Primary Nurse. lp1 19:55 Triage completed. lp1 19:55 Arm band placed on left wrist. lp1 19:56 Patient has correct armband on for positive identification. Placed in gown. Bed in low lp1 position. Call light in reach. shelter monitor on. Pulse ox on. NIBP on. 20:15 Maintain EMS IV. Dressing intact. Good blood return noted. Site clean \\T\\ dry. Gauge \\T\\ lp 1 site: 20g to L AC. 21:13 Head C Spine Cap W Con In Process Unspecified. EDMS 21:36 Sally Dumont MD is Hospitalizing Provider. cp 22:28 No provider procedures requiring assistance completed. Patient admitted, IV remains in lp1 place. Administered Medications: 21:39 Drug: morphine 4 mg Route: IVP; Site: left antecubital; lp1 22:58 Follow up: Response: Marked relief of symptoms lp1 21:40 Drug: NS 0.9% 1000 ml Route: IV; Rate: 1 bolus; Site: left antecubital; lp1 22:58 Follow up: IV Status: Completed infusion; IV Intake: 1000ml lp1 21:40 Drug: Zofran (Ondansetron) 4 mg Route: IVP; Site: left antecubital; lp1 22:58 Follow up: Response: No adverse reaction lp1 21:58 Not Given (Other Intervention Used): Zosyn (piperacillin-tazobactam) 3.375 grams IVPB la1 once over 60 mins; (mix in NS 100 mL) 22:57 Drug: NS 0.9% 1000 ml Route: IV; Rate: 1 bolus; Site: left antecubital; lp1 23:55 Follow up: IV Status: Completed infusion; IV Intake: 1000ml lp1 22:57 Drug: Cefepime 1 grams Route: IVPB; Rate: 200 ml/hr; Infused Over: 30 mins; Site: left lp1 antecubital; 23:55 Follow up: IV Status: Completed infusion; IV Intake: 100ml lp1 23:30 Not Given (Physician Discretion; Per DARIWN Cedillo): D5-1/2 NS 1000 ml IV at 125 lp1 ml/hr continuous; after 2L NS bolus complete 23:55 Drug: vancoMYCIN 1 grams Route: IVPB; Infused Over: 2 hrs; Site: left antecubital; lp1 23:55 Follow up: IV Status: Infusion continued upon admission lp1 Intake: 22:58 IV: 1000ml; Total: 1000ml. lp1 23:55 IV: 100ml; Total: 1100ml. lp1 23:55 IV: 1000ml; Total: 2100ml. lp1 Output: 22:58 Urine: 500ml (Voided); Total: 500ml. lp1 Outcome: 21:38 Decision to Hospitalize by Provider. cp 22:28 Condition: stable lp1 22:28 Instructed on the need for admit. 23:35 Admitted to Med/surg room 212, with chart, Report called to JOHNY Santoro lp1 07/29 00:17 Patient left the ED. lp1 Signatures: Dispatcher [employer] EDMS Andrea Shepherd MD MD cha Pena, Laura RN RN lp1 Andrea Evans PA PA cp [place], MyKena mw2 Dom Knowles-Cla1 Corrections: (The following items were deleted from the chart) 07/28 20:16 19:53 BP 162 / 95; Pulse 118bpm; Resp 19bpm; Pulse Ox 97% RA; 63.5 kg Reported; Height lp1 5 ft. 7 in.; BMI: 21.9; lp1 23:31 23:31 Allergies: No Known Allergies; lp1 lp1
--- NOTE | 2021-07-28 21:40 | EDPHYS ---
Physician Documentation [facility] Name: Nick Toure Age: 31 yrs Sex: Male : 1990 Arrival Date: 07/28/2021 Time: 19:40 Bed 5 Private MD: ED Physician Andrea Shepherd HPI: 07/28 20:00 This 31 yrs old Male presents to ER via EMS with complaints of Hypoglycemia. cp 20:00 The patient or guardian reports hypoglycemia, Treatment prior to arrival includes: EMS cp administered IV dextrose. 20:00 Associated signs and symptoms: Pertinent positives: back pain, altered mental status. cp Current symptoms: In the emergency department the patient's symptoms have improved, mildly, is more alert. 20:00 Patient reports consuming 2 alcoholic drinks last night and after getting up out of bed cp early this morning, fell to ground and has been on ground since falling this morning. Patient with history of insulin dependent diabetes and has insulin pump. Historical: - Allergies: 07/29 00:18 No Known Allergies; lp1 - Home Meds: 07/28 19:55 lisinopril 10 mg oral tab once daily [Active]; Novolog 100 unit/mL Sub-Q soln [Active]; lp1 Insulin pump [Active]; - PMHx: 19:55 Diabetes - IDDM; Hypertensive disorder; lp1 - PSHx: 19:55 None; lp1 - Immunization history:: Adult Immunizations up to date. - Social history:: Smoking status: Patient reports the use of cigarette tobacco products, smokes one pack cigarettes per day. ROS: 20:05 Constitutional: Negative for body aches, chills, fever, poor PO intake. cp 20:05 Eyes: Negative for injury, pain, redness, and discharge. cp 20:05 Neck: Negative for pain with movement, pain at rest, stiffness. 20:05 Cardiovascular: Negative for chest pain, palpitations. 20:05 Respiratory: Negative for cough, shortness of breath, wheezing. 20:05 Abdomen/GI: Negative for abdominal pain, vomiting, diarrhea, constipation. 20:05 Back: Positive for pain at rest, pain with movement. 20:05 Neuro: Negative for altered mental status, headache. 20:05 All other systems are negative. cp Exam: 20:10 ECG was reviewed by the Attending Physician. cp 20:12 Constitutional: The patient appears in no acute distress, alert, awake, cp non-diaphoretic, non-toxic, well developed, well nourished, uncomfortable. 20:12 Head/Face: Normocephalic, atraumatic. cp 20:12 Eyes: Periorbital structures: appear normal, Pupils: equal, round, and reactive to light and accomodation, Extraocular movements: intact throughout, Conjunctiva: normal, no exudate, no injection, Sclera: no appreciated abnormality, Lids and lashes: appear normal, bilaterally. 20:12 ENT: External ear(s): are unremarkable, Nose: is normal, Mouth: Lips: dry, Oral mucosa: dry, Posterior pharynx: Airway: no evidence of obstruction, patent, Tonsils: are normal in appearance, swelling, is not appreciated, erythema, is not appreciated, exudate, is not appreciated. 20:12 Neck: ROM/movement: is normal, is supple, without pain, no range of motions limitations, no meningismus, no nuchal rigidity. 20:12 Chest/axilla: Inspection: normal, Palpation: is normal, no crepitus, no tenderness. 20:12 Cardiovascular: Rate: tachycardic, Rhythm: regular, Edema: is not appreciated, JVD: is not appreciated. 20:12 Respiratory: the patient does not display signs of respiratory distress, Respirations: normal, no use of accessory muscles, no retractions, labored breathing, is not present, shallow respirations, that is mild, Breath sounds: are clear throughout, no decreased breath sounds, no stridor, no wheezing. 20:12 Abdomen/GI: Inspection: abdomen appears normal, Bowel sounds: active, all quadrants, Palpation: abdomen is soft and non-tender, in all quadrants. 20:12 Back: pain, that is moderate, ROM is painful, Straight leg raises: of both lower extremities does not illicit pain. 20:12 Musculoskeletal/extremity: Exam is negative for decreased range of motion, deformity, injury, Pulses: noted to be 2+ in the right radial artery, right dorsalis pedis artery, left radial artery and left dorsalis pedis artery. 20:12 Skin: abscess, that is small, of the buttocks, cellulitis, well demarcated, on the buttocks. 20:12 Neuro: Orientation: to person, place \\T\\ time. Mentation: is normal, Motor: moves all fours, strength is normal, Sensation: is normal. Vital Signs: 19:53 BP 162 / 95; Pulse 118; Resp 19; Temp 97.6(O); Pulse Ox 97% on R/A; Weight 63.5 kg (R); lp1 Height 5 ft. 7 in. (170.18 cm); 21:00 BP 132 / 94; Pulse 123; Resp 22; Pulse Ox 100% on R/A; lp1 21:30 BP 163 / 96; Pulse 117; Resp 20; Pulse Ox 100% on 2 lpm NC; lp1 23:57 BP 104 / 60; Pulse 108; Resp 19; Pulse Ox 100% on 2 lpm NC; lp1 19:53 Body Mass Index 21.93 (63.50 kg, 170.18 cm) lp1 Thanh Coma Score: 19:56 Eye Response: spontaneous(4). Verbal Response: oriented(5). Motor Response: obeys lp1 commands(6). Total: 15. MDM: 19:48 Patient medically screened. torin 20:00 Differential diagnosis: DKA, sepsis, rhabdomyolysis, UTI, cellulitis, abscess. 22:00 Physician consultation: Dom Eleni was contacted at 22:00, regarding admission, to the telemetry unit. patient's condition, and will see patient in ED, shortly. 22:00 Response to treatment: the patient's symptoms have mildly improved after treatment. 22:30 Data reviewed: vital signs, nurses notes, lab test result(s), EKG, radiologic studies, cp CT scan. 22:30 Test interpretation: by ED physician or midlevel provider: ECG. Counseling: I had a detailed discussion with the patient and/or guardian regarding: the historical points, exam findings, and any diagnostic results supporting the discharge/admit diagnosis, lab results, radiology results, the need for further work-up and treatment in the hospital. 07/28 19:51 Order name: Acetaminophen 07/28 19:51 Order name: Basic Metabolic Panel 07/28 19:51 Order name: CBC with Diff; Complete Time: 21:59 07/28 20:53 Interpretation: Normal except: WBC 22.30; RBC 4.16; HGB 13.0; HCT 38.3; JACOB% 92.5; LYM% cp 3.1; NEUT A 20.6. 07/28 19:51 Order name: ETOH Level; Complete Time: 20:53 cp 07/28 19:51 Order name: Hepatic Function; Complete Time: 21:43 cp / 20:55 Interpretation: Normal except: AST 64; ALK 121; ALB 3.3; A/G 1.0. cp / 19:51 Order name: PT-INR; Complete Time: 20:53 cp 07/28 19:51 Order name: Ptt, Activated; Complete Time: 20:53 cp 07/28 19:51 Order name: Salicylate; Complete Time: 20:53 cp 07/28 19:51 Order name: Urine Drug Screen cp 07/28 19:51 Order name: CK; Complete Time: 21:43 cp 07/28 22:24 Interpretation: Abnormal: CPK 2398. cp 07/28 19:51 Order name: Acetaminophen Level; Complete Time: 21:43 EDMS 07/28 19:51 Order name: Basic Metabolic Panel; Complete Time: 21:43 EDMS 07/28 21:00 Interpretation: Normal except: CL 110; GLUC 123; BUN 20; GFR 85. cp 07/28 20:03 Order name: Glucose, Ancillary Testing; Complete Time: 20:53 EDMS 07/28 20:51 Order name: Manual Differential; Complete Time: 21:59 EDMS 07/28 22:24 Interpretation: Normal except: SEGS 84; BANDS [F] 4; LYM 5. cp 07/28 20:52 Order name: Head C Spine Cap W Con; Complete Time: 21:43 EDMS 07/28 21:12 Order name: Glucose, Ancillary Testing; Complete Time: 21:43 EDMS 07/28 21:36 Order name: Blood Culture Adult (2) cp 07/28 21:36 Order name: Lactate cp 07/28 21:36 Order name: Procalcitonin cp 07/28 21:36 Order name: Blood Culture EDMS 07/28 21:36 Order name: Lactate EDMS 07/28 21:36 Order name: Procalcitonin EDMS 07/28 21:45 Order name: COVID-19 SARS RT PCR (Document "Date of Onset" if Symptomatic) lp1 07/28 22:51 Order name: Urine Dipstick-Ancillary EDMS 07/28 22:56 Order name: Glucose, Ancillary Testing EDDE 07/28 19:51 Order name: EKG; Complete Time: 19:52 cp 07/28 19:51 Order name: EKG - Nurse/Tech; Complete Time: 20:15 cp 07/28 19:51 Order name: IV Saline Lock; Complete Time: 19:57 cp 07/28 19:51 Order name: Labs collected and sent; Complete Time: 20:15 cp 07/28 19:51 Order name: Suicide Screening (Aragon); Complete Time: 19:53 cp 07/28 19:51 Order name: Urine Dipstick-Ancillary (obtain specimen); Complete Time: 22:58 cp 07/28 19:51 Order name: Accucheck Blood Glucose; Complete Time: 19:53 cp EC:10 Rate is 117 beats/min. Rhythm is regular. [place] interval is normal. QRS interval is cp normal. QT interval is normal. T waves are Inverted in lead III. Interpreted by me. Reviewed by me. Administered Medications: 21:39 Drug: morphine 4 mg Route: IVP; Site: left antecubital; lp1 22:58 Follow up: Response: Marked relief of symptoms lp1 21:40 Drug: NS 0.9% 1000 ml Route: IV; Rate: 1 bolus; Site: left antecubital; lp1 22:58 Follow up: IV Status: Completed infusion; IV Intake: 1000ml lp1 21:40 Drug: Zofran (Ondansetron) 4 mg Route: IVP; Site: left antecubital; lp1 22:58 Follow up: Response: No adverse reaction lp1 21:58 Not Given (Other Intervention Used): Zosyn (piperacillin-tazobactam) 3.375 grams IVPB la1 once over 60 mins; (mix in NS 100 mL) 22:57 Drug: NS 0.9% 1000 ml Route: IV; Rate: 1 bolus; Site: left antecubital; lp1 23:55 Follow up: IV Status: Completed infusion; IV Intake: 1000ml lp1 22:57 Drug: Cefepime 1 grams Route: IVPB; Rate: 200 ml/hr; Infused Over: 30 mins; Site: left lp1 antecubital; 23:55 Follow up: IV Status: Completed infusion; IV Intake: 100ml lp1 23:30 Not Given (Physician Discretion; Per DARWIN Cedillo): D5-1/2 NS 1000 ml IV at 125 lp1 ml/hr continuous; after 2L NS bolus complete 23:55 Drug: vancoMYCIN 1 grams Route: IVPB; Infused Over: 2 hrs; Site: left antecubital; lp1 23:55 Follow up: IV Status: Infusion continued upon admission lp1 Disposition: 07/29 11:09 Co-signature as Attending Physician, Andrea Shepherd MD I agree with the assessment and torin plan of care. Disposition Summary: 07/28/21 21:38 Hospitalization Ordered Hospitalization Status: Inpatient Admission cp Provider: Sally Dumont cp Location: Telemetry/MedSurg (Inpatient) cp Condition: Fair cp Problem: new cp Symptoms: have improved cp Bed/Room Type: Standard cp Room Assignment: 212(07/28/21 23:15) cg Diagnosis - Cellulitis of buttock cp - Cutaneous abscess of buttock cp Forms: - Medication Reconciliation Form cp - SBAR form cp Signatures: Dispatcher [employer] EDMS Andrea Shepherd MD MD cha Pena, Laura, RN RN lp1 Dom Knowles, DARWIN-C HOG SLAUGHTERER-Cla1 Andrea Evans PA PA cp Mariely Keith, JOHNY RN cg Corrections: (The following items were deleted from the chart) 07/28 20:49 20:44 Head C Spine CAP W Con+CT.RAD.BRZ ordered. EDMS EDMS 20:53 20:27 Head Brain Wo Cont+CT.RAD.BRZ ordered. EDMS EDMS 23:15 21:38 cp cg 23:31 23:31 Allergies: No Known Allergies; lp1 lp1 07/29 19:15 07/28 20:05 All other systems are negative, cp cp
[2021-07-28] MEDS ORDERED: PIPERACIL/TAZO 3.375 GM VIAL IV ONE (21:48)
[2021-07-28] MEDS ORDERED: NA CHLORIDE 0.9% 0 ML ONE (21:48)
[2021-07-28] MEDS ORDERED: NA CHLORIDE 0.9% 100 ML ONE ×2 (21:48→22:52)
[2021-07-28] MEDS ORDERED: VANCOMYCIN 1 GM/VIAL ONE (21:48)
[2021-07-28 21:54] LABS: Blood Morphology Comment NOT SEEN (NOT SEEN); Platelet Estimate ADEQ
--- NOTE | 2021-07-28 22:40 | P.HP ---
Certification for Inpatient Patient admitted to: Observation With expected LOS: <2 Midnights Patient will require the following post-hospital care: None Practitioner: I am a practitioner with admitting privileges, knowledge of patient current condition, hospital course, and medical plan of care. Services: Services provided to patient in accordance with Admission requirements found in Title 42 Section 412.3 of the Code of Federal Regulations Patient History Date of Service: 07/28/21 Reason for admission: Rhabdomyolysis, hypoglycemia History of Present Illness: 31-year-old male with history of hypertension and diabetes type 1 with insulin pump presents emergency department after hypoglycemic episode. Patient was found down on the ground for possibly between 16 and 18 hours with hypoglycemia with blood sugar around 40. Patient was treated for hypoglycemia and transferred to the emergency department for evaluation. Patient was evalua grazyna in the emergency department labs were significant for white blood cell count 20.3 hemoglobin 13 hematocrit 38.3 creatinine 1, GFR 85 glucose 123 CPK 2398 UDS negative alcohol level negative patient noted to have pressure ulcer to sacral area stage I in addition to a small palpable mass to the left gluteal fold. Patient had CT scan of the head/neck/chest abdomen pelvis which did reveal an 18 mm rounded focal mass in the subcutaneous fatty tissues medial margin left intragluteal fold with no involvement of the peritoneum evident. On exam this area is noncellulitic or erythematous, not tender to palpation but does feel slightly fluctuant. Questionable infection but given high white cell count was covered with antibiotics. ED provider wishes to admit for rhabdomyolysis, hypoglycemic event. Insulin pump has been removed. Allergies No Known Drug Allergies Allergy (Verified 01/29/19 00:22) Unknown Home Medications: Subcutaneous Insulin Pump [Insulin Pump] 1 each MC 30 MIN BEFORE HS 12/12/13 Codeine/APAP [Tylenol W/Codeine #3 tab] 1 tab PO Q4HP PRN #30 tab 01/29/19 NaCl 0.9% Irr Bottle [Ns Irrigation Bottle] 1,000 ml IR DAILY #1 btl 01/29/19 lisinopriL [Lisinopril] 5 mg PO DAILY 01/29/19 - Past Medical/Surgical History Diabetic: Yes -: HTN -: IDDM -: ankle wound with graft -: umbilical hernia repair Psychosocial/ Personal History: Unemployed, lives at home with his brother - Family History Father -: Heart disease, Hypertension Mother -: Hypertension - Social History Smoking Status: Current every day smoker Counseled patient to stop smoking for: less than 10 minutes Smoking therapy provided: No (Patient declined) Alcohol use: Yes CD- Drugs: No Caffeine use: Yes Place of Residence: Home Review of Systems 10-point ROS is otherwise unremarkable General: Weakness, Malaise Gastrointestinal: Nausea, Vomiting Musculoskeletal: Back Pain Physical Examination - Physical Exam General: Alert, In no apparent distress, Oriented x3 HEENT: Atraumatic, PERRLA, Mucous membr. moist/pink, EOMI, Sclerae nonicteric Neck: Supple, 2+ carotid pulse no bruit, No LAD, Without JVD or thyroid abnormality Respiratory: Clear to auscultation bilaterally, Normal air movement Cardiovascular: Regular rate/rhythm, Normal S1 S2 Capillary refill: <2 Seconds Gastrointestinal: Normal bowel sounds, No tenderness Musculoskeletal: No tenderness Integumentary: No rashes, Pressure ulcer (Stage I pressure ulcer to sacral area), Other (Small palpable mass left gluteal fold area without erythema, cellulitis or tenderness) Neurological: Normal gait, Normal speech, Normal strength at 5/5 x4 extr, Normal tone, Normal affect - Studies Laboratory Data (last 24 hrs) 07/28/21 20:10: PT 11.2, INR 0.97, APTT 30.9 07/28/21 20:10: WBC 22.30 H*, Hgb 13.0 L, Hct 38.3 L, Plt Count 288 07/28/21 20:10: Sodium 145, Potassium 4.6, BUN 20 H, Creatinine 1.01, Glucose 123 H, Total Bilirubin 0.4, AST 64 H, ALT 36, Alkaline Phosphatase 121 H Assessment and Plan - Plan Assessment: Rhabdomyolysis secondary to hypoglycemic event with underlying diabetes mellitus type 1insulin-dependent with insulin pump Leukocytosis likely related to above 18 mm mass left gluteal fold Hypertension Stage I sacral pressure ulcer Plan: Rhabdomyolysis secondary to hypoglycemic event with underlying diabetes mellitus type 1insulin-dependent with insulin pump: Patient received 2 L normal saline bolus in the emergency department continue with aggressive IV fluids we will continue with D5 half NS at this time as patient will be n.p.o. per general surgery for evaluation of the gluteal fold mass versus abscess. We will continue to monitor blood sugar closely, blood sugar has been stable so far. Insulin pump has been removed. We will continue to monitor CPK closely as well with every 6 hour checks. Currently renal function is intact. Leukocytosis likely related to above: Questionably related to gluteal fold mass versus abscess. Will cover with IV antibiotics recheck labs tomorrow including CRP and procalcitonin General surgery has been consulted and will see patient. N.p.o. after midnight. 18 mm mass left gluteal fold: Continue as above Hypertension: Obtain and continue home medication as appropriate Stage I sacral pressure ulcer: Patient ambulatory encourage frequent position changes. DVT PPX: Lovenox Code status: Full Discharge Plan: Home Plan to discharge in: 24 Hours - Advance Directives Does patient have a Living Will: No Does patient have a Durable POA for Healthcare: No - Code Status/Comfort Care Code Status Assessed: Yes (Full code) Critical Care: No Time Spent Managing Pts Care (In Minutes): 55
[2021-07-28 22:51] LABS: Urine Blood 2+ (Negative); Urine Glucose Negative (Negative); Urine Protein 3+ (Negative); Urine Specific Gravity >=1.030 (1.005-1.030); Urine pH 5.5 (5.0-7.0)
[2021-07-28] MEDS ORDERED: CEFEPIME 1 GM/VIAL ONE (22:52)
[2021-07-28 23:08] LABS: Barbiturates NEGATIVE (NEGATIVE); Benzodiazepines NEGATIVE (NEGATIVE); Cocaine NEGATIVE (NEGATIVE); METHAMPHETAM NEGATIVE (NEGATIVE); Methadone NEGATIVE (NEGATIVE); Opiates NEGATIVE (NEGATIVE); Phencyclidine NEGATIVE (NEGATIVE); THC Cannibis NEGATIVE (NEGATIVE)
[2021-07-28] MEDS ORDERED: ONDANSETRON 4 MG/2 ML VIAL IV PRN (23:47)
[2021-07-28] MEDS ORDERED: D5 0.45 NS 1,000 ML IV SCH (23:47)
[2021-07-28] MEDS ORDERED: MORPHINE 2 MG/ML SYR IV PRN (23:47)
[2021-07-29 01:19] VITALS: BMI 21.9
[2021-07-29] MEDS: NACHLORIDE 0.45% 1,000 ML IV SCH ×7 (02:15→21:24)
[2021-07-29] MEDS ORDERED: INSULIN -REGULAR HUMAN 50 UNIT/0.5 ML ML SQ SCH ×2 (06:00→07:30)
[2021-07-29 06:01] LABS: Absolute Lymphocytes (CBC) 0.9 K/uL (0.7-4.9); Basophils % 0.1 % (0-1.3); Hematocrit 37.3 % (39.6-49.0); Lymphocytes % 3.4 % (15.3-44.8); MPV 8.1 fL (7.6-11.3); RBC Red Blood Cell Count 3.97 M/uL (4.33-5.43)
--- NOTE | 2021-07-29 06:02 | P.PN ---
Date of Service: 07/29/21 Subjective: Feels better this morning, reports still having some discomfort/soreness left lower back/flank, over his tailbone And generalized muscle aches No nausea/vomiting, no diarrhea, no fever/chills Feels like he had a big workout but denies any recent strenuous physical activity Reports he slowly let himself down on the floor last night, where he remained for many hours Does not remember much of the evening before States he did not eat anything yesterday, but continued of the same insulin dosage from his pump ROS: 10 point ROS as noted above, otherwise negative Physical exam GEN: Alert, oriented, appears slightly uncomfortable HEENT: Normal conjunctiva, sclera anicteric CV: Regular rate and rhythm, no edema Pulm: Nonlabored respiration on room air ABD: Soft, nontender, nondistended MSK: Tenderness to palpation over posterior sacrum/coccyx Integumentary: Large circular area of erythema/stage I pressure ulcer over posterior sacrum/coccyx, no induration, no abscess appreciated Small, 1.5 cm diameter spherical mass palpated at left upper thigh/buttocks, minimal discomfort on palpation, no overlying erythema, no drainage Neuro: Normal speech, normal affect Problem List Rhabdomyolysis secondary to hypoglycemic event with underlying diabetes mellitus type 1insulin-dependent with insulin pump VISHAL secondary to rhabdomyolysis Hyperkalemia Leukocytosis likely related to above 18 mm mass left gluteal fold Hypertension Stage I sacral pressure ulcer Rhabdomyolysis secondary to hypoglycemic event with underlying diabetes mellitus type 1insulin-dependent with insulin pump VISHAL secondary to rhabdomyolysis, no history of CKD s/p 2L NS in ED, currently on half NS @ 150, will increase to 200 cc/hour increase in CPK, creatinine increasing as well Patient reports urine output improving, no CVA tenderness, urine remains dark Patient reports very dry mouth Suspect patient became hypoglycemic due to ongoing insulin pump and he did not eat anything, only had 2 or 3 alcoholic beverages. He does not recall many of the events at night Glucose has been increasing, continue sliding scale, Accu-Cheks Consult nephrology for worsening renal function Kayexalate given, patient to receive insulin, repeat BMP at noon Leukocytosis Infectious versus secondary to rhabdomyolysis Small little mass/likely sebaceous cyst at left gluteal fold/upper thigh area, with no erythema, minimal discomfort on palpation General surgery was consulted on admission, up to see patient today. Patient is currently n.p.o. Suspect this is not the source of this leukocytosis, there is no local signs of infection/inflammation on exam either Currently on IV antibiotics, follow-up cultures Suspect leukocytosis is all secondary to rhabdomyolysis 18 mm mass left gluteal fold: As noted above Hypertension: Obtain and continue home medication as appropriate Stage I sacral pressure ulcer: Patient ambulatory encourage frequent position changes. Pain improving, continue pain medication as needed Time Spent Managing Pts Care (In Minutes): 35
[2021-07-29 06:33] LABS: Albumin 3.1 g/dL (3.4-5.0); Bilirubin Total 0.9 mg/dL (0.2-1.0); C-Reactive Protein 18.5 mg/L (<3.00); Protein, Total 6.3 g/dL (6.4-8.2); Thyroid Stimulating Hormone 0.407 uIU/mL (0.360-3.740)
[2021-07-29 06:44] LABS: Potassium 5.6 mmol/L (3.5-5.1)
[2021-07-29] MEDS ORDERED: SOD POLYSTYREN SUL 15 GM/60 ML UCUP PO ONE (07:34)
[2021-07-29 07:36] LABS: Blood Morphology Comment NOT SEEN (NOT SEEN); Platelet Estimate ADEQ
[2021-07-29] MEDS ORDERED: PNEUMOCOCCAL VACCINE 0.5 ML IMVAC ONE (08:00)
[2021-07-29] MEDS ORDERED: INFLUENZA VACCINE (for 6+ mo) 0.5 ML DOSE IMVAC ONE (08:00)
[2021-07-29] MEDS: ENOXAPARIN 40 MG/0.4 ML SQ SCH (09:19)
[2021-07-29] MEDS: CEFEPIME 1 GM in NA CHLORIDE 0.9% 100 ML IV SCH ×2 (09:20→21:20)
--- NOTE | 2021-07-29 09:38 | P.PN ---
Date of Service: 07/29/21 Subjective: Feels better this morning, reports still having some discomfort/soreness left lower back/flank, over his tailbone And generalized muscle aches No nausea/vomiting, no diarrhea, no fever/chills Feels like he had a big workout but denies any recent strenuous physical activity Reports he slowly let himself down on the floor last night, where he remained for many hours Does not remember much of the evening before States he did not eat anything yesterday, but continued of the same insulin dosage from his pump ROS: 10 point ROS as noted above, otherwise negative Physical exam GEN: Alert, oriented, NAD HEENT: Normal conjunctiva, sclera anicteric CV: Regular rate and rhythm, no edema Pulm: Nonlabored respiration on room air ABD: Soft, nontender, nondistended MSK: No joint tenderness Integumentary: No rashes Neuro: Normal speech, normal affect Problem List Time Spent Managing Pts Care (In Minutes): 35
[2021-07-29] MEDS ORDERED: ACETAMINOPHEN 500 MG TAB PO PRN (09:51)
[2021-07-29] MEDS ORDERED: TRAMADOL HCL 50 MG TAB PO PRN (09:51)
[2021-07-29] MEDS ORDERED: VANCOMYCIN 1.25 GM in NA CHLORIDE 0.9% 250 ML IVPB SCH (10:00)
[2021-07-29] MEDS: VANCOMYCIN 1.25 GM in NA CHLORIDE 0.9% 250 ML IVPB SCH ×2 (10:11→21:21)
[2021-07-29] MEDS ORDERED: D50W 25 GM/50 ML SYRINGE IV PRN (10:34)
[2021-07-29] MEDS ORDERED: GLUCAGON 1 MG/VIAL IM PRN (10:34)
[2021-07-29 12:06] LABS: Potassium 4.8 mmol/L (3.5-5.1)
[2021-07-29] MEDS: INSULIN -REGULAR HUMAN 50 UNIT/0.5 ML ML SQ SCH ×3 (12:17→21:00)
[2021-07-29] MEDS ORDERED: INSULIN GLARGINE 100 UNIT/ML SQ ONE (14:00)
[2021-07-30] MEDS: NACHLORIDE 0.45% 1,000 ML IV SCH ×2 (01:13→12:13)
[2021-07-30 05:38] LABS: Absolute Lymphocytes (CBC) 2.3 K/uL (0.7-4.9); Basophils % 0.3 % (0-1.3); Hematocrit 31.3 % (39.6-49.0); Lymphocytes % 17.2 % (15.3-44.8); MPV 7.9 fL (7.6-11.3); RBC Red Blood Cell Count 3.33 M/uL (4.33-5.43)
[2021-07-30 06:01] LABS: Albumin 2.5 g/dL (3.4-5.0); Bilirubin Total 0.6 mg/dL (0.2-1.0); Magnesium 2.3 mg/dL (1.8-2.4); Phosphorus 1.9 mg/dL (2.5-4.9); Potassium 3.9 mmol/L (3.5-5.1); Protein, Total 5.4 g/dL (6.4-8.2)
--- NOTE | 2021-07-30 07:02 | RAD REPORT ---
EXAM DESCRIPTION: US - Renal Ultrasound-Complete - 07/30/2021 12:00 am CLINICAL HISTORY: juna COMPARISON: No comparisons FINDINGS: The right kidney measures 10.9 x 4.8 x 5.3 cm. The left kidney measures 11.9 x 5.5 x 5.3 cm. Renal cortical thickness and echogenicity are normal. No hydronephrosis or suspicious renal mass. No bladder wall thickening or mass. No intraluminal stone or mass. IMPRESSION: No hydronephrosis or suspicious renal mass. No other significant findings.
[2021-07-30] MEDS: INSULIN -REGULAR HUMAN 50 UNIT/0.5 ML ML SQ SCH ×3 (07:30→15:59)
--- NOTE | 2021-07-30 08:30 | CON ---
Date of Consultation: 07/29/2021 Complaint Acute: Kidney injury, nonoliguric, rhabdomyolysis, hypoglycemia. History Of Present Illness: The patient is a 31-year-old man with history of hypertension, diabetes mellitus type 1, on insulin pump. He presented to emergency room because of generalized weakness and he developed hypoglycemic episode at home. Patient was found on the ground for possible between 16 and 18 hours with hypoglycemia, blood sugar around 40s. The patient was treated for hypoglycemia and transferred to emergency room for evaluation. The patient was found to have white count of 20,000, hemoglobin 13, hematocrit 38.3, and creatinine is elevated today. CPK level was 2398. Th e patient had a CT scan of the head, neck, chest, abdomen, and pelvis, which revealed an 18 mm round focal mass in the subcutaneous nontender to palpation, possible abscess. Insulin pump was removal. Patient is admitted for hypokalemia and acute kidney injury. Medications patient was taki ng lisinopril at home and insulin pump, codeine, one tablet every 4 hours p.r.n. pain. Past Medical History: Diabetes mellitus, hypertension, insulin-dependent diabetes mellitus, ankle wo und with skin graft, umbilical hernia repair. Family History: Father, heart disease, hypertension. Mother, hypertension. Social History: He is a daily smoker. Alcohol, denies alcohol. Physical Examination: General: Patient is alert, follows commands. Eyes: Anicteric sclerae. EOMI. Ear, Nose, Mouth, and Throat: Oral mucosa moist. No pallor. Neck: Supple. No bruits. Lungs: Clear to auscultation bilaterally. Heart: S1, S2. Abdomen: Soft, benign. Extremities: Slight edema. Laboratory Data: Blood work showed PT 11.2, INR 0.97, . WBC 22.3, hemoglobin 13, hematocr it 38.3, platelet count 288. Sodium 145, potassium 4.6, BUN 20, creatinine 1.01, glucose 123, biliru bin 0.4. Blood work today showed WBC 25,600, hemoglobin 12.6, hematocrit 37.3, platelet count 233,00 0. Chemistry showed creatinine 1.41, BUN 38. Estimated GFR 58. Glucose 306, CK level 2937, calcium 8.2. Sodium 140, potassium 4.8, chloride 108, CO2 23. CT scan of the pelvis and cervical spine show ed no pneumothorax, no fluid collection. CT scan of the abdomen showed no injury to unrem arkable. No free air. Impression And Plan: 1.Acute kidney injury. Patient has prerenal azotemia. Monitor his urine output, fluid balance. Av oid nephrotoxic medication. The patient will avoid nonsteroidal anti-inflammatory medication. 2.The patient has history of diabetes, was admitted with hypoglycemia and rhabdomyolysis. Monitor e lectrolytes and check phosphorus and magnesium levels. Plan replacement according to lab results. 3.For rhabdomyolysis, continue IV fluid. 4.Insulin. Hypoglycemia. Patient may benefit from TPN. 5.Hypertension. Continue blood pressure medication. Adjust medication according to blood pressure log. EB/MODL Voice ID: [id number] Report ID: [id number]
--- NOTE | 2021-07-30 08:51 | P.PN ---
Subjective Date of Service: 07/30/21 Chief Complaint: Rhabdomyolysis, hypoglycemia Subjective: No new changes Physical Examination - Vital Signs Temperature: 99.0 F Blood Pressure: 122/66 Pulse: 90 Respirations: 19 Pulse Ox (%): 96 - Physical Exam General: Alert, In no apparent distress HEENT: Atraumatic, Normocephalic Neck: Supple Respiratory: Clear to auscultation bilaterally Cardiovascular: No rubs, No murmurs Gastrointestinal: Soft and benign, No guarding Musculoskeletal: No clubbing Integumentary: No warmth Neurological: Normal speech, Normal tone Urinary: Other (No bladder distention) External genitalia: Deferred Rectal: Deferred - Studies Microbiology Data (last 24 hrs): 07/28/21 23:00 Blood - Blood Anaerobic Blood Culture - Final Assessment And Plan - Plan 1. Acute kidney injury. Improving. Patient has prerenal azotemia. Monitor his urine output, fluid balance. Avoid nephrotoxic medication. The patient will avoid nonsteroidal anti-inflammatory medication. [place] po fluid intake. 2. Rhabdomyolysis, improved. Received IV fluid. 3. DM1. Bld gluc high. Resume insulin pump. 4. Hypertension. Continue blood pressure medication. Adjust medication according to blood pressure log. 5. HypoPO4. Phos repletion today.
[2021-07-30] MEDS ORDERED: THIAMINE 200 MG/2 ML INJ IVP SCH (09:00)
[2021-07-30] MEDS ORDERED: POTASSIUM 25 MEQ EFFERV TAB PO ONE (09:00)
[2021-07-30] MEDS: ENOXAPARIN 40 MG/0.4 ML SQ SCH (09:04)
[2021-07-30] MEDS: CEFEPIME 1 GM in NA CHLORIDE 0.9% 100 ML IV SCH (09:04)
[2021-07-30] MEDS: VANCOMYCIN 1.25 GM in NA CHLORIDE 0.9% 250 ML IVPB SCH (10:00)
[2021-07-30 10:49] VITALS: O2SAT 96
[2021-07-30] MEDS ORDERED: INSULIN GLARGINE 100 UNIT/ML SQ ONE (12:43)
--- NOTE | 2021-07-30 16:03 | P.DS ---
Admission Date: 07/29/21 Discharge Date: 07/30/21 Disposition: ROUTINE DISCHARGE Discharge Condition: FAIR Reason for Admission: Rhabdomyolysis, hypoglycemia Brief History of Present Illness: 31-year-old male with history of hypertension and diabetes type 1 with insulin pump presents emergency department after hypoglycemic episode. Patient was found down on the ground for possibly between 16 and 18 hours with hypoglycemia with blood sugar around 40. Patient was treated for hypoglycemia and transferred to the emergency department for evaluation. Patient was evaluated in the emergency department labs were significant for white blood cell count 20.3 hemoglobin 13 hematocrit 38.3 creatinine 1, GFR 85 glucose 123 CPK 2398 UDS negative alcohol level negative patient noted to have pressure ulcer to sacral area stage I in addition to a small palpable mass to the left gluteal fold. Patient had CT scan of the head/neck/chest abdomen pelvis which did reveal an 18 mm rounded focal mass in the subcutaneous fatty tissues medial margin left intragluteal fold with no involvement of the peritoneum evident. On exam this area is noncellulitic or erythematous, not tender to palpation but does feel slightly fluctuant. Questionable infection but given high white cell count was covered with antibiotics. ED provider wishes to admit for rhabdomyolysis, hypoglycemic event. Insulin pump has been removed. Hospital Course: Diagnosis Rhabdomyolysis secondary to hypoglycemic event with underlying diabetes mellitus type 1insulin-dependent with insulin pump VISHAL secondary to rhabdomyolysis Hyperkalemia Leukocytosis. 18 mm mass in left gluteal fold Hypertension Stage I sacral pressure ulcer Rhabdomyolysis/VISHAL/hyperkalemia/hypoglycemia VISHAL secondary to rhabdomyolysis, no history of CKD. Hyperkalemia treated with Kayexalate. Patient aggressive hydrated with IV normal saline. He was seen in consultation by nephrology who assisted with management. VISHAL resolved with IV hydration CPK not severely elevated. CPK level trended down. Hypoglycemia could have precipitated the fall. Hypoglycemia likely related to alcohol ingestion. Patient initially maintained on sliding scale after hypoglycemia was corrected. He became hyperglycemic and insulin pump resumed. Leukocytosis/18 mm mass left gluteal fold: Infectious versus rhabdomyolysis causing leukocytosis Small lesion at left gluteal fold/upper thigh area, with no erythema, minimal discomfort on palpation, no erythema or induration to indicate infection. Appearance does not look like an abscess. It has a rim of opacity and looks like fat necrosis. Cultures came back negative. Patient treated with IV antibiotics. Leukocytosis significantly improved. He will continue Augmentin as an outpatient. Hypertension: Resume lisinopril on discharge. Stage I sacral pressure ulcer: Patient is ambulatory. Vital Signs/Physical Exam: Temp Pulse Resp BP Pulse Ox 97.7 F 89 18 158/96 H 96 07/30/21 12:00 07/30/21 12:00 07/30/21 12:00 07/30/21 12:00 07/30/21 12:00 General: Alert, In no apparent distress, Oriented x3 HEENT: Mucous membr. moist/pink Neck: JVD not distended Respiratory: Clear to auscultation bilaterally, Normal air movement Cardiovascular: No edema, Regular rate/rhythm, Normal S1 S2 Gastrointestinal: Soft and benign, Non-distended, No tenderness Musculoskeletal: No swelling, No tenderness Integumentary: No rashes Neurological: Normal strength at 5/5 x4 extr Laboratory Data at Discharge: WBC 13.60 K/uL (4.3-10.9) H D 07/30/21 05:15 Hgb 10.8 g/dL (13.6-17.9) L 07/30/21 05:15 Hct 31.3 % (39.6-49.0) L D 07/30/21 05:15 Plt Count 201 K/uL (152-406) 07/30/21 05:15 PT 11.2 SECONDS (9.5-12.5) 07/28/21 20:10 INR 0.97 07/28/21 20:10 APTT 30.9 SECONDS (24.3-36.9) 07/28/21 20:10 Sodium 140 mmol/L (136-145) 07/30/21 05:15 Potassium 3.9 mmol/L (3.5-5.1) 07/30/21 05:15 BUN 38 mg/dL (7-18) H 07/30/21 05:15 Creatinine 1.18 mg/dL (0.55-1.3) 07/30/21 05:15 Glucose 137 mg/dL (74-106) H 07/30/21 05:15 Phosphorus 1.9 mg/dL (2.5-4.9) L 07/30/21 05:15 Magnesium 2.3 mg/dL (1.8-2.4) 07/30/21 05:15 Total Bilirubin 0.6 mg/dL (0.2-1.0) 07/30/21 05:15 AST 95 U/L (15-37) H 07/30/21 05:15 ALT 49 U/L (12-78) 07/30/21 05:15 Alkaline Phosphatase 90 U/L (45-117) 07/30/21 05:15 Triglycerides 73 mg/dL (<150) 07/29/21 05:47 Cholesterol 117 mg/dL (<200) 07/29/21 05:47 HDL Cholesterol 49 mg/dL (40-60) 07/29/21 05:47 Cholesterol/HDL Ratio 2.39 07/29/21 05:47 Home Medications: Subcutaneous Insulin Pump [Insulin Pump] 1 each MC 30 MIN BEFORE HS 12/12/13 lisinopriL [Lisinopril] 10 mg PO DAILY 01/29/19 Amox/Clavulanate [Augmentin 875-125 Tab] 1 each PO BID #14 tab 07/30/21 New Medications: Amox/Clavulanate [Augmentin 875-125 Tab] 1 each PO BID #14 tab Diet: ADA Activity: Ad philippe Followup: Sally Dumont MD [Primary Care Provider] - Time spent managing pt's care (in minutes): 36
[2021-07-30] MEDS ORDERED: VANCOMYCIN 1.25 GM in NA CHLORIDE 0.9% 250 ML IVPB SCH (21:00)
[2021-07-31 01:03] VITALS: BP 122/66; TEMP 99
== END 2021-07-30 18:40 | disposition home or self-care (01) | DRG 638 ==
LOC: ER 19:38 → ERHOLD 22:21 → 2ND 23:40 → OBSVTOIN 07-29 09:50
PROVIDERS: ADMIT Hospitalist; ATTEND Internal Medicine
DX: E10.649 Type 1 diabetes mellitus with hypoglycemia without coma (principal); M62.82 Rhabdomyolysis; F17.210 Nicotine dependence, cigarettes, uncomplicated; I10 Essential (primary) hypertension; L89.151 Pressure ulcer of sacral region, stage 1; F17.200 Nicotine dependence, unspecified, uncomplicated; D72.829 Elevated white blood cell count, unspecified; N17.9 Acute kidney failure, unspecified; E87.5 Hyperkalemia; E87.6 Hypokalemia; E83.39 Other disorders of phosphorus metabolism; E10.65 Type 1 diabetes mellitus with hyperglycemia; Z56.0 Unemployment, unspecified; Z96.41 Presence of insulin pump (external) (internal); Z79.899 Other long term (current) drug therapy; Z79.4 Long term (current) use of insulin; Z20.822 Contact with and (suspected) exposure to COVID-19
CPT/HCPCS: 36415; 70450; 71260; 72125; 74177; 76770; 80048; 80053; 80061; 80076; 80202; 80307; 80320; 80329; 81003; 82550; 82553; 82947; 83036; 83605; 83735; 84100; 84145; 84165; 84439; 84443; 85025; 85610; 85730; 86140; 86334; 87040; 93005; 96361; 96365; 96375; 99285; G0378; J0692; J1650; J2270; J2405; J2543; J3370; J3411; J7030; J7050; Q9967; U0003

== ENCOUNTER 2022-02-08 17:51 | Emergency (ER) | payer BC ==
--- OUTSIDE RECORDS SUMMARY | 2022-02-08 17:55 | XMS REPORT | Continuity of Care Document ---
:1990 Author Organization [facility] t Address [address] [place] [address] Care Team Providers Name Role Phone Augustina Dumont Primary Care Physician Dg Vuong MD Attending Clinician Dg VUONG Attending Clinician Unavailable Payers Payer Name Policy Type Policy Number Effective Date Expiration Date S ource Problems Condition Condition Condition Status Onset Resolution Last Treating Co mments Source Name Details Category Date Date Treatment Clinician Date Insulin Insulin Disease Active 2019-0 Univers pump pump 06 ity of status status 00:00: [place] 00 [facility] Essential Essential Disease Active 2019-0 Uni vers hypertensi hypertensi 5- it y of on on 00:00: [place] 00 Medical Branch 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 hyperchole 06 it y of sterolemia sterolemia [place] Type 1 Type 1 Disease Active 2018-0 Univers diabetes diabetes 1-17 ity of mellitus mellitus 00:00: [place] with with 00 Medical microalbum microalbum Br anch inuria inuria Allergies, Adverse Reactions, Alerts Allergy Allergy Status Severity Reaction(s) Onset Inactive Treating Comm ents Source Name Type Date Date Clinician NO KNOWN Drug Active Univers ALLERGIE Class ity of S [place] [facility] [place] Social History Social Habit Start Date Stop Date Quantity Comments Source History [facility] o f Alcohol Frequency [place] [facility] History [facility] University o f Alcohol Std [place] [facility] Drinks Branch History [facility] o f Alcohol Binge [place] [facility] al Branch Exposure to 2022-01-26 2022-02-05 Not sure University of SARS-CoV-2 00:00:00 08:18:00 [facility] (event) Branch Alcohol intake 2022-02-05 2022-02-05 Current drinker Unive rsity of 00:00:00 00:00:00 of alcohol [facility] (finding) Branch Tobacco use and 2017-08-05 2017-08-05 Never used Universit y of exposure 00:00:00 00:00:00 [facility] Alcohol Comment 2017-08-05 2017-08-05 once a month Univers ity of 00:00:00 00:00:00 [facility] Sex [birth year] Universit y of 00:00:00 00:00:00 [facility] Smoking Status Start Date Stop Date Source Never smoker [facility] Medications Ordered Filled Start Stop Current Ordering Indication Dosage Frequency Signature Comments Components Source Medication Medication Date Date Medication? Clinician (SIG) Name Name insulin Yes 1{each} inject 1 Uni vers pump 6-23 Each under ity of cart,auto,B 00:00: the skin Bashir camilo T-cntr 00 SEE-INSTRU Medical (OMNIPOD 5 CTIONS. Branch G6 INTRO KIT, GEN 5,) Crtg insulin Yes 1{each} inject 1 Uni vers pump 6-23 Each under ity of cart,automa 00:00: the skin Bashir camilo grazyna,BT 00 every 72 Medical (OMNIPOD 5 (seventy-t Bra nch G6 POD, GEN wo) hours. 5,) Crtg flash Yes [id number] 1{each} 1 Each Uni vers glucose 6-22 every 14 ity of sensor 00:00: (fourteen) [place] (FREESTYLE 00 days. Medical VENITA 14 Branch DAY SENSOR) Kit insulin Yes 539 Use in Univers aspart 6-22 insulin ity of RAPID 00:00: pump est [place] (NOVOLOG 00 100 units Medica l U-100 per day. Branch INSULIN Indication ASPART) 100 s: unit/mL diabetes injection flash Yes [id number] 1{each} 1 Each Uni vers glucose 6-22 every 14 ity of sensor 00:00: (fourteen) [place] (FREESTYLE 00 days. Medical VENITA 14 Branch DAY SENSOR) Kit insulin Yes 539 Use in Univers aspart 6-22 insulin ity of RAPID 00:00: pump est [place] (NOVOLOG 00 100 units Medica l U-100 per day. Branch INSULIN Indication ASPART) 100 s: unit/mL diabetes injection flash 2021- Yes [id number] 1{each} 1 Each Un [place] glucose 6- 06-23 once now ity of scanning 00:00: 04:59 for 1 [place] reader 00 :00 dose. Medical (FREESTYLE Branch VENITA 14 DAY READER) Misc lisinopriL Yes [id number] 20mg Take 1 U nivers 20 mg 1-26 tablet by ity of tablet 00:00: mouth [place] 00 daily. Medical Branch lisinopriL Yes [id number] 20mg Take 1 U nivers 20 mg 1-26 tablet by ity of tablet 00:00: mouth [place] 00 daily. Medical Branch blood sugar 2020-08 Yes [id number] Use tid, Univers diagnostic 2-30 ity of (CONTOUR 00:00: [place] NEXT TEST 00 Medical STRIPS) Branch strip blood sugar 2020-08 Yes [id number] Use tid, Univers diagnostic 2-30 ity of (CONTOUR 00:00: [place] NEXT TEST 00 Medical STRIPS) Branch strip insulin 2020-08- No 539 Use in Univers aspart 2 06-22 insulin ity of RAPID 00:00: 00:00 pump [facility] (NOVOLOG 00 :00 100 units Medica l U-100 per day. Branch INSULIN Indication ASPART) 100 s: unit/mL diabetes injection Glucagon 2020-08 Yes [id number] Use as Un [place] (GLUCAGON 2-17 needed for ity of EMERGENCY 00:00: hypoglycem [place] KIT, 00 ia. Medical HUMAN,) 1 Branch mg SolR Glucagon 2020-08 Yes [id number] Use as [place] (GLUCAGON 2-17 needed for ity of EMERGENCY 00:00: hypoglycem [place] KIT, 00 ia. Medical HUMAN,) 1 Branch mg SolR lancets Yes [id number] Use as Univ ers (FREESTYLE 04-17 directed ity o f LANCETS) 28 00:00: to test 3 [place] gauge Misc 00 times Medical daily. Branch fluticasone Yes [id number] 2{spray Use 2 Univers propionate 04-17 } Sprays in ity of 50 00:00: each [place] mcg/actuati 00 nostril 2 Med ical on nasal (two) Branch spray times daily. lancets Yes [id number] Use as Univ ers (FREESTYLE 04-17 directed ity o f LANCETS) 28 00:00: to test 3 [place] gauge Misc 00 times Medical daily. Branch fluticasone Yes [id number] 2{spray Use 2 Univers propionate 04-17 } Sprays in ity of 50 00:00: each [place] mcg/actuati 00 nostril 2 Med ical on nasal (two) Branch spray times daily. insulin Yes [id number] 1{box} inject 1 Univers syr/ndl 4-26 Box under ity of U100 half 00:00: the skin 3 [place] venu 0.5mL 00 (three) Medica l 30 gauge x times Branch 15/64" Syrg daily. insulin Yes [id number] 1{box} inject 1 Univers syr/ndl 4-26 Box under ity of U100 half 00:00: the skin 3 [place] venu 0.5mL 00 (three) Medica l 30 gauge x times Branch 15/64" Syrg daily. KETONE 2020-0 Yes Use as Univers URINE TEST 1-23 directed ity o f strip 00:00: [place] [facility] KETONE 2020-0 Yes Use as Univers URINE TEST 1-23 directed ity o f strip 00:00: [address] Vital Signs Vital Name Observation Time Observation Value Comments Source Systolic blood 2022-02-05 13:33:00 158 mm[Hg] Univer sity of pressure [facility] Diastolic blood 2022-02-05 13:33:00 99 mm[Hg] [facility] Heart rate 2022-02-05 13:33:00 86 /min [facility] Body temperature 2022-02-05 13:32:00 36.78 [place] [facility] Res[facility] rate 2022-02-05 13:32:00 16 /min [facility] Body height 2022-02-05 13:32:00 170.2 cm [facility] Body weight 2022-02-05 13:32:00 59.92 kg [facility] BMI 2022-02-05 13:32:00 20.69 kg/m2 [facility] Oxygen saturation in 2022-02-05 13:32:00 98 /min [facility] Arterial blood by [facility] Pulse oximetry Branch Procedures Procedure Date / Time Performed Performing Clinician Link e POCT HEMOGLOBIN A1C 2022-02-05 13:49:00 Mike Vuong [facility] Encounters Start End Encounter Admission Attending Care Care Encounter Source Date/Time Date/Time Type Type Clinicians Facility Department ID 2022-02-06 2022-02-06 Telephone [facility] [id number] [facility] 00:00:00 00:00:00 Mike Conte PRIMARY [id number] ity of [id number] [facility] [id number] [place] dical 220 Branch 2022-02-05 2022-02-05 Office [facility] [id number] Univers 08:30:00 09:58:51 Visit Mike Conte PRIMARY [id number] ity of [id number] [id number] Il dical 220 Branch 2022-02-05 2022-02-05 Outpatient R [facility] [id number] Univers 08:30:00 09:58:51 MIKE [place] [facility] Results Test Description Test Time Test Comments Results Result Comments Source POCT HEMOGLOBIN A1C TEST 2022-02-05 13:49:00 Test Item Value Reference Range Interpretation Comme nts POCT HBA1C (test code = 4548-4) 12.8 % 4-6 A Lab Interpretation (test code = 68786-4) Abnormal [facility]
--- NOTE | 2022-02-08 18:47 | RAD REPORT ---
EXAM DESCRIPTION: RAD - Wrist Right 3 View - 02/08/2022 6:32 pm CLINICAL HISTORY: PAIN COMPARISON: No comparisons FINDINGS/IMPRESSION: No acute fracture. No malalignment. No significant focal degenerative changes.
--- NOTE | 2022-02-08 18:47 | RAD REPORT ---
EXAM DESCRIPTION: RAD - Hand Right 3 View - 02/08/2022 6:32 pm CLINICAL HISTORY: SMASH INJURY COMPARISON: No comparisons FINDINGS/IMPRESSION: No acute fracture identified. Obliquely oriented lucency at the third middle ph alanx extending to the interphalangeal joint is noted. This is favored to represent overlapping struc tures. A similar though less conspicuous finding is seen at the second proximal phalanx as well. No m alalignment. No significant focal degenerative changes.
[2022-02-08] MEDS ORDERED: IBUPROFEN 400 MG TAB ONE (19:12)
[2022-02-08] MEDS ORDERED: IBUPROFEN 200 MG TAB PO ONE (19:12)
--- NOTE | 2022-02-08 19:58 | ER ---
Nurse's Notes [facility] Name: Nick Toure Age: 32 yrs Sex: Male : 1990 Arrival Date: 02/08/2022 Time: 17:54 Bed 12 Private MD: RORY WILLIS Diagnosis: Sprain of other part of right wrist and hand Presentation: 02/08 18:10 Chief complaint: Patient states: I punched my dresser this morning - C/O right hand ld1 pain. Coronavirus screen: At this time, the client does not indicate any symptoms associated with coronavirus-19. Ebola Screen: No symptoms or risks identified at this time. Initial Sepsis Screen: Does the patient meet any 2 criteria? No. Patient's initial sepsis screen is negative. Does the patient have a suspected source of infection? No. Patient's initial sepsis screen is negative. Risk Assessment: Do you want to hurt yourself or someone else? Patient reports no desire to harm self or others. Onset of symptoms was February 08, 2022 at 18:11. 18:10 Method Of Arrival: Ambulatory ld1 18:10 Acuity: GRAZYNA 4 ld1 Triage Assessment: 18:11 General: Appears in no apparent distress. comfortable, Behavior is calm, cooperative, ld1 appropriate for age. Pain: Complains of pain in right hand Pain does not radiate. Pain currently is 8 out of 10 on a pain scale. EENT: No signs and/or symptoms were reported regarding the EENT system. Neuro: Level of Consciousness is awake, alert, obeys commands, Oriented to person, place, time, situation. Cardiovascular: Capillary refill < 3 seconds Patient's skin is warm and dry. Respiratory: Airway is patent Respiratory effort is even, unlabored. GI: Abdomen is flat, non-distended. : No signs and/or symptoms were reported regarding the genitourinary system. Derm: No signs and/or symptoms reported regarding the dermatologic system. Musculoskeletal: No signs and/or symptoms reported regarding the musculoskeletal system. 19:11 Injury Description: Abrasion sustained to right hand. as6 Historical: - Allergies: 18:11 No Known Allergies; ld1 - PMHx: 18:11 Diabetes - IDDM; Hypertensive disorder; ld1 - PSHx: 18:11 None; ld1 - Immunization history:: Adult Immunizations up to date, Client reports receiving the 2nd dose of the Covid vaccine. - Social history:: Smoking status: Patient denies any tobacco usage or history of. Patient/guardian denies using alcohol. Screenin:11 Abuse screen: Denies threats or abuse. Denies injuries from another. Nutritional as6 screening: No deficits noted. Tuberculosis screening: No symptoms or risk factors identified. Fall Risk None identified. Assessment: 19:10 General: Appears in no apparent distress. uncomfortable, Behavior is calm, cooperative. as6 Pain: Complains of pain in right hand. Respiratory: Respiratory effort is even, unlabored. Musculoskeletal: Swelling present in right hand. Vital Signs: 18:10 BP 156 / 94; Pulse 110; Resp 18; Temp 97.9(TE); Pulse Ox 100% on R/A; Weight 63.5 kg; ld1 Height 5 ft. 7 in. (170.18 cm); Pain 8/10; 19:12 BP 127 / 71; Pulse 96; Resp 18 S; Pulse Ox 99% on R/A; as6 18:10 Body Mass Index 21.93 (63.50 kg, 170.18 cm) ld1 ED Course: 17:54 Patient arrived in ED. am2 17:54 RORY WILLIS is Private Physician. am2 18:00 Annia Carr FNP [facility]. jh7 18:00 Sally Velasco MD is Attending Physician. jh7 18:11 Triage completed. ld1 18:11 Arm band placed on right wrist. ld1 18:34 XRAY Hand RIGHT 3 View In Process Unspecified. EDMS 18:34 XRAY Wrist RIGHT 3 view In Process Unspecified. EDMS 19:03 Noé Vega, JOHNY is Primary Nurse. as6 19:11 Bed in low position. Call light in reach. Side rails up X 1. Adult w/ patient. Pulse ox as6 on. NIBP on. 20:14 No provider procedures requiring assistance completed. Patient did not have IV access as6 during this emergency room visit. splint applied. Administered Medications: 19:10 Drug: Motrin (ibuprofen) 600 mg Route: PO; as6 20:14 Follow up: Response: No adverse reaction as6 Medication: 20:15 VIS not applicable for this client. as6 Outcome: 19:58 Discharge ordered by . jh7 20:15 Discharged to home ambulatory, with family. as6 20:15 Condition: stable 20:15 Discharge instructions given to patient, Instructed on discharge instructions, follow up and referral plans. Demonstrated understanding of instructions, follow-up care. 20:15 Patient left the ED. as6 Signatures: Dispatcher [employer] EDMS Carlene Kellogg am2 Nicol Paniagua RN RN ld1 Noé Vega RN RN as6 Annia Carr FNP [employer] jh7
--- NOTE | 2022-02-08 19:58 | EDPHYS ---
Physician Documentation [facility] Name: Nick Toure Age: 32 yrs Sex: Male : 1990 Arrival Date: 02/08/2022 Time: 17:54 Bed 12 Private MD: RORY WILLIS ED Physician Sally Velasco HPI: 02/08 18:15 This 32 yrs old Male presents to ER via Ambulatory with complaints of Hand Injury, jh7 Wrist Injury. 18:15 The patient or guardian reports a contusion, injury, pain, swelling. Onset: The jh7 symptoms/episode began/occurred acutely. The patient complains of right hand/wrist injury after punching the dresser this morning. Complains of pain and swelling. Denies any other complaints at this time.. Historical: - Allergies: 18:11 No Known Allergies; ld1 - PMHx: 18:11 Diabetes - IDDM; Hypertensive disorder; ld1 - PSHx: 18:11 None; ld1 - Immunization history:: Adult Immunizations up to date, Client reports receiving the 2nd dose of the Covid vaccine. - Social history:: Smoking status: Patient denies any tobacco usage or history of. Patient/guardian denies using alcohol. ROS: 18:15 Constitutional: Negative for fever, chills, and weight loss, Neck: Negative for injury, jh7 pain, and swelling, Cardiovascular: Negative for chest pain, palpitations, and edema, Respiratory: Negative for shortness of breath, cough, wheezing, and pleuritic chest pain, Abdomen/GI: Negative for abdominal pain, nausea, vomiting, diarrhea, and constipation, Back: Negative for injury and pain, Skin: Negative for injury, rash, and discoloration, Neuro: Negative for headache, weakness, numbness, tingling, and seizure. 18:15 MS/extremity: Positive for injury or acute deformity, pain, swelling, tenderness, Negative for decreased range of motion, laceration. 18:15 All other systems are negative. Exam: 18:15 Constitutional: This is a well developed, well nourished patient who is awake, alert, jh7 and in no acute distress. Head/Face: Normocephalic, atraumatic. Cardiovascular: Regular rate and rhythm with a normal S1 and S2. No gallops, murmurs, or rubs. Normal PMI, no JVD. No pulse deficits. Respiratory: Lungs have equal breath sounds bilaterally, clear to auscultation and percussion. No rales, rhonchi or wheezes noted. No increased work of breathing, no retractions or nasal flaring. Abdomen/GI: Soft, non-tender, with normal bowel sounds. No distension or tympany. No guarding or rebound. No evidence of tenderness throughout. Back: No spinal tenderness. No costovertebral tenderness. Full range of motion. Skin: Warm, dry with normal turgor. Normal color with no rashes, no lesions, and no evidence of cellulitis. Neuro: Awake and alert, GCS 15, oriented to person, place, time, and situation. Motor strength 5/5 in all extremities. Sensory grossly intact. Normal gait. 18:15 Musculoskeletal/extremity: Circulation is intact in all extremities. Sensation intact. Right wrist: Pain noted over the distal radius and ulna with palpation and flexion of the wrist. Pain also noted at the base of the right thumb that is tender to palpation. Mild swelling noted over these areas.. Vital Signs: 18:10 BP 156 / 94; Pulse 110; Resp 18; Temp 97.9(TE); Pulse Ox 100% on R/A; Weight 63.5 kg; ld1 Height 5 ft. 7 in. (170.18 cm); Pain 8/10; 19:12 BP 127 / 71; Pulse 96; Resp 18 S; Pulse Ox 99% on R/A; as6 18:10 Body Mass Index 21.93 (63.50 kg, 170.18 cm) ld1 MDM: 19:03 Patient medically screened. [facility] 19:55 Data reviewed: vital signs, nurses notes, radiologic studies, plain films. Counseling: [facility] I had a detailed discussion with the patient and/or guardian regarding: the historical points, exam findings, and any diagnostic results supporting the discharge/admit diagnosis, to return to the emergency department if symptoms worsen or persist or if there are any questions or concerns that arise at home. ED course: Informed the patient that his x-rays were negative for fracture. Due to to his clinical presentation, he was placed in a Velcro wrist brace for comfort. Advised to take Tylenol at home for pain, and return to the ER if any new concerning symptoms develop.. 19:55 Differential diagnosis: dislocation, closed fracture, contusion. Data interpreted: [facility] Pulse oximetry: is 99 %. Interpretation: normal. 02/08 18:12 Order name: XRAY Hand RIGHT 3 View; Complete Time: 19:37 7 02/08 18:12 Order name: XRAY Wrist RIGHT 3 view; Complete Time: 19:37 7 02/08 19:57 Order name: Wrist Splint; Complete Time: 20:14 jh7 Administered Medications: 19:10 Drug: Motrin (ibuprofen) 600 mg Route: PO; as6 20:14 Follow up: Response: No adverse reaction as6 Disposition: 02/09 18:02 Co-signature as Attending Physician, Sally Velasco MD. ma2 Disposition Summary: 02/08/22 19:58 Discharge Ordered Location: Home [facility] Problem: new 7 Symptoms: have improved jh7 Condition: Stable 7 Diagnosis - Sprain of other part of right wrist and hand [facility] Followup: [facility] - With: Private Physician - When: 2 - 3 days - Reason: Recheck today's complaints Discharge Instructions: - Discharge Summary Sheet 7 - Hand Contusion jh7 - Wrist Sprain, Adult [facility] Forms: - Medication Reconciliation Form 7 - Thank You Letter [facility] Signatures: Dispatcher [employer] EDMS Sally Velasco MD MD ma2 Nicol Paniagua RN RN ld1 Noé Vega RN RN as6 Annia Carr, BRIM [employer]ATER BR[employer] [facility]
[2022-02-08 21:07] VITALS: TEMP 97.9
[2022-02-08 21:09] VITALS: BP 127/71; O2SAT 99
== END 2022-02-08 20:15 | disposition home or self-care (01) ==
LOC: ER 17:51
DX: S63.591A Other specified sprain of right wrist, initial encounter (principal); E11.9 Type 2 diabetes mellitus without complications; I10 Essential (primary) hypertension
CPT/HCPCS: 99284